=== PATIENT | male | born 1955 | race Caucasian/White ===

== ENCOUNTER 2017-03-02 14:16 | Inpatient (IN) | payer MEDICAID, OTHER ==
--- NOTE | 2017-03-02 16:26 | EDPHY ---
General Narrative: CHIEF COMPLAINT: Weakness, falls HISTORY OF PRESENT ILLNESS: Patient arrives with his significant other at bedside. She complains primarily of weakness and possible urinary tract infection. She says that the patient has been increasingly weak and intermittently confused over the past 4-5 days. Patient has a history of Parkinson's dementia as well as Lewy body dementia, thus he does already have a history of hallucinations and confusion. However she says that this is different for him. He has periods of clarity with some periods of confusion his hallucinations seems to be worsening. He has been so weak that he has difficulty ambulating and has fallen on 4 separate occasions in the past 4 days. She reports that he has struck his head on solid surfaces twice in the past 4 days but denies any loss of consciousness. She describes no facial droop , no slurred speech, and no unilateral weakness. He denies any headache at this time. He says that he is generally sore from his falls but has no specific point pain. They both feel that this may be urinary tract infection as he has had similar scenarios in the past, which were diagnosed ultimately as urinary tract infections. No fever or chills. No abdominal pain. No chest pain. No cough. No lacerations from the falls. They are here at the recommendation of their neurology PA due to all the above. Additionally, the significant other feels that she could no longer help take care of at home because of the multiple falls and she is concerned about him going home due to this. REVIEW OF SYSTEMS: Ten systems reviewed and are negative unless otherwise noted in the HPI PERTINENT MEDICAL HISTORY: Parkinson's, Lewy body dementia PERTINENT MEDICATIONS: Sinemet, Exelon, mirabegron EXAMINATION General Appearance: Alert, no distress Head: normocephalic, atraumatic. No hematoma. No depression. No Irwin sign. No raccoon eyes. Eyes: Pupils equal and round, no conjunctival pallor or injection ENT, Mouth: Mucous membranes moist. Uvula midline. No erythema or edema. Neck: Normal inspection, supple, non-tender. No meningismus. Painless range of motion all planes. No nuchal rigidity. Respiratory: Mild rhonchi. No retractions. No consolidation, wheezing or diminishment. No distress. Cardiovascular: Regular rate and rhythm. No murmur. Pulses intact distally. Gastrointestinal: Abdomen is soft and nontender. No tympany rigidity. Back: Generalized soft tissue tenderness. No midline tenderness or crepitus. Neurological: Alert and oriented x4. Cranial nerves 2-12 grossly intact. Strength is symmetric in all 4 limbs at 4/5. Sensory is intact. There are baseline contractures in all 4 limbs from Parkinson's. Skin: Warm and dry, no rash. No lacerations abrasions or contusions. Extremities: Contractions present. Range of motion reportedly intact for patient. Psychiatric: Normal mood. Flat affect. DIFFERENTIAL DIAGNOSES: Including but not limited to acute delirium, UTI, sepsis, pneumonia, aspiration pneumonia, stroke, weakness, rhabdomyolysis MDM: 4:20 p.m. Increasing weakness over the past few days with worsening incontinence, multiple falls, closed head injury and generalized discomfort. Nonfocal examination. He vital signs stable and he is in no acute distress. Have personally spoken with the patient's Neurology PA, Berenice Nettles. She informed me that in these scenarios with patient with parkinsonian dementia and we body dementia, they are worried about acute infection given the acute confusion. She recommended lab work, CT of the head without contrast, chest x-ray as he is at risk for aspiration pneumonia. We will here to these recommendations and obtain laboratory studies, blood cultures, lactic acid. He does not meet criteria for SIRS at this time and he is in no acute distress. 5:10 p.m. Lactic acid is within normal limits. I have been notified by radiologist Dr. Snider. CT scan of the head is unremarkable for any acute findings. He remains in no acute distress. Laboratory studies also showed leukocytosis, and they are otherwise pending at this time. 7:20 p.m. There was extensive difficulty obtaining urinalysis from the patient. He was unable to go, the 1st straight cath with unsuccessful. The 2nd straight cath was successful and urinalysis pending at this time. He will be admitted following return of the urinalysis. We have begun IV fluid resuscitation further early rhabdo. Renal function is within normal limits. 8:45 p.m. Weakness with early rhabdomyolysis. Very mildly elevated leukocytosis. No evidence of urinary tract infection. No meningismus. No acute distress. No evidence of stroke. I discussed the case with Dr. Gilmore at this time, and he will admit the patient for further care. We have started fluid resuscitation further early rhabdomyolysis. He is not acidotic, there is no protein in his urine, and he has normal renal function. SUPERVISION: Patient was evaluated in conjunction with the supervising physician. Please see their note for details. - Diagnostics Imaging Results: Imaging Impressions Head CT 03/02/17 16:18 Impression: No acute intracranial findings. Findings discussed with Kwan Leach 03/02/2017 at 17:09. Chest X-Ray 03/02/17 16:20 Impression: There is no focal infiltrate. - History Smoking Status: Former smoker - Objective Vital Signs: Initial Vital Signs Temperature (C) 98.2 F 03/02/17 14:41 Heart Rate 68 03/02/17 14:41 Respiratory Rate 18 03/02/17 14:41 Blood Pressure 110/70 03/02/17 14:41 O2 Sat (%) 98 03/02/17 14:41 O2 Delivery Mode Room Air Allergies/Adverse Reactions: No Known Allergies Allergy (Verified 03/02/17 14:44) Home Medications: Medication Instructions Recorded Carbidopa/Levodopa [Carbidopa-Levo 2 each PO TID 03/02/17 25-100 mg Odt] Mirabegron [Myrbetriq] 50 mg PO DAILY 03/02/17 Rivastigmine Tartrate 3 mg PO BID 03/02/17 [Rivastigmine] Laboratory Results: Laboratory Results 03/02/17 16:50 03/02/17 16:50 03/02/17 03/02/17 03/02/17 19:08 16:50 16:50 WBC RBC Hgb Hct MCV MCH MCHC RDW Plt Count MPV Neut % (Auto) Lymph % (Auto) [place] % (Auto) Eos % (Auto) Baso % (Auto) Nucleat RBC Rel Count Absolute Neuts (auto) Absolute Lymphs (auto) Absolute Monos (auto) Absolute Eos (auto) Absolute Basos (auto) Absolute Nucleated RBC Immature Gran % Immature Gran # PT 13.9 SEC SEC (12.0-15.0) INR 1.08 (0.83-1.16) APTT 26.5 SEC SEC (23.0-38.0) VBG Lactic Acid Sodium 139 mEq/L mEq/L (134-144) Potassium 3.7 mEq/L mEq/L (3.5-5.2) Chloride 102 mEq/L mEq/L (97-110) Carbon Dioxide 28 mEq/l mEq/l (22-31) Anion Gap 9 mEq/L mEq/L (8-16) BUN 47 mg/dL H mg/dL (7-23) Creatinine 1.3 mg/dL mg/dL (0.7-1.3) Estimated GFR 56 Glucose 88 mg/dL mg/dL (70-100) Calcium 9.4 mg/dL mg/dL (8.5-10.4) Magnesium 2.0 mg/dL mg/dL (1.6-2.3) Total Bilirubin 1.5 mg/dL H mg/dL (0.1-1.4) Conjugated Bilirubin 0.4 mg/dL mg/dL (0.0-0.5) Unconjugated Bilirubin 1.1 mg/dL mg/dL (0.0-1.1) AST 282 IU/L H IU/L (17-59) ALT 43 IU/L IU/L (21-72) Alkaline Phosphatase 54 IU/L IU/L (38-126) Creatine Kinase 6228 IU/L H IU/L (0-224) CK-MB (CK-2) Fraction 18.50 ng/mL H ng/mL (0-4.55) CK-MB (CK-2) % 0.3 % % (0.0-4.0) Creatine Kinase Interp NEGATIVE (NEGATIVE) Troponin I < 0.012 ng/mL ng/mL (0-0.034) Total Protein 6.9 g/dL g/dL (6.3-8.2) Albumin 4.0 g/dL g/dL (3.5-5.0) Lipase 91.0 IU/L IU/L (23-300) Urine Color YELLOW Urine Appearance CLEAR Urine pH 5.0 (5.0-7.5) Ur Specific [place] 1.027 (1.002-1.030) Urine Protein NEGATIVE (NEGATIVE) Urine Ketones TRACE H (NEGATIVE) Urine Blood 1+ H (NEGATIVE) Urine Nitrate NEGATIVE (NEGATIVE) Urine Bilirubin NEGATIVE (NEGATIVE) Urine Urobilinogen NEGATIVE EU EU (0.2-1.0) Ur Leukocyte Esterase NEGATIVE (NEGATIVE) Urine RBC 1-3 /hpf /hpf (0-3) Urine WBC 1-3 /hpf /hpf (0-3) Ur Epithelial Cells TRACE /lpf /lpf (NONE-1+) Urine Mucus 1+ /lpf /lpf (NONE-1+) Ur Culture Indicated? NOT INDICATED (NI) Urine Glucose NEGATIVE (NEGATIVE) 03/02/17 03/02/17 16:50 16:50 WBC 10.38 10^3/uL H 10^3/uL (3.80-9.50) RBC 4.90 10^6/uL 10^6/uL (4.40-6.38) Hgb 15.0 g/dL g/dL (13.7-17.5) Hct 44.2 % % (40.0-51.0) MCV 90.2 fL fL (81.5-99.8) MCH 30.6 pg pg (27.9-34.1) MCHC 33.9 g/dL g/dL (32.4-36.7) RDW 12.6 % % (11.5-15.2) Plt Count 200 10^3/uL 10^3/uL (150-400) MPV 10.1 fL fL (8.7-11.7) Neut % (Auto) 79.5 % H % (39.3-74.2) Lymph % (Auto) 9.0 % L % (15.0-45.0) [place] % (Auto) 9.7 % % (4.5-13.0) Eos % (Auto) 0.6 % % (0.6-7.6) Baso % (Auto) 0.5 % % (0.3-1.7) Nucleat RBC Rel Count 0.0 % % (0.0-0.2) Absolute Neuts (auto) 8.26 10^3/uL H 10^3/uL (1.70-6.50) Absolute Lymphs (auto) 0.93 10^3/uL L 10^3/uL (1.00-3.00) Absolute Monos (auto) 1.01 10^3/uL H 10^3/uL (0.30-0.80) Absolute Eos (auto) 0.06 10^3/uL 10^3/uL (0.03-0.40) Absolute Basos (auto) 0.05 10^3/uL 10^3/uL (0.02-0.10) Absolute Nucleated RBC 0.00 10^3/uL 10^3/uL (0-0.01) Immature Gran % 0.7 % % (0.0-1.1) Immature Gran # 0.07 10^3/uL 10^3/uL (0.00-0.10) PT INR APTT VBG Lactic Acid 1.0 mmol/L mmol/L (0.7-2.1) Sodium Potassium Chloride Carbon Dioxide Anion Gap BUN Creatinine Estimated GFR Glucose Calcium Magnesium Total Bilirubin Conjugated Bilirubin Unconjugated Bilirubin AST ALT Alkaline Phosphatase Creatine Kinase CK-MB (CK-2) Fraction CK-MB (CK-2) % Creatine Kinase Interp Troponin I Total Protein Albumin Lipase Urine Color Urine Appearance Urine pH Ur Specific [place] Urine Protein Urine Ketones Urine Blood Urine Nitrate Urine Bilirubin Urine Urobilinogen Ur Leukocyte Esterase Urine RBC Urine WBC Ur Epithelial Cells Urine Mucus Ur Culture Indicated? Urine Glucose Medications Given: Discontinued Medications Sodium Chloride (Ns) 1,000 mls @ 0 mls/hr IV ONCE ONE PRN Reason: Wide Open Stop: 03/02/17 17:56 Last Admin: 03/02/17 18:00 Dose: 1,000 mls Sodium Chloride (Ns) 1,000 mls @ 0 mls/hr IV ONCE ONE PRN Reason: Wide Open Stop: 03/02/17 19:28 Last Admin: 03/02/17 19:54 Dose: 1,000 mls Departure - Departure Disposition: [facility] Inpatient Acute Clinical Impression: Weakness, Parkinson disease Rhabdomyolysis Qualifiers: Rhabdomyolysis type: non-traumatic Qualified Code(s): M62.82 - Rhabdomyolysis Dementia without behavioral disturbance Qualifiers: Dementia type: Parkinson's disease Qualified Code(s): G20 - Parkinson's disease ; F02.80 - Dementia in other diseases classified elsewhere without behavioral disturbance Condition: Good
[2017-03-02 17:02] LABS: % IMMATURE GRANULYOCYTES 0.7 % (0.0-1.1); ABSOLUTE IMMATURE GRANULOCYTES 0.07 10^3/uL (0.00-0.10); ADD DIFF? NO; ADD MORPH? NO; ADD SCAN? NO; ATYPICAL LYMPHOCYTE FLAG 0 (0-99); FRAGMENT RBC FLAG 0 (0-99); HEMATOCRIT 44.2 % (40.0-51.0); LEFT SHIFT FLG 0 (0-99); LIPEMIA HEMOLYSIS FLAG 90 (0-99); MEAN CELL HEMOGLOBIN 30.6 pg (27.9-34.1); MEAN CELL HEMOGLOBIN CONCENTR. 33.9 g/dL (32.4-36.7); MEAN CELL VOLUME 90.2 fL (81.5-99.8); MEAN PLATELET VOLUME 10.1 fL (8.7-11.7); PLATELET CLUMPS FLAG 10 (0-99); PLATELET COUNT 200 10^3/uL (150-400); RED CELL DISTRIBUTION WIDTH 12.6 % (11.5-15.2)
[2017-03-02 17:14] LABS: APTT 26.5 SEC (23.0-38.0); INR 1.08 (0.83-1.16); PROTIME(PATIENT) 13.9 SEC (12.0-15.0)
[2017-03-02 17:34] LABS: ALANINE AMINOTRANSFERASE 43 IU/L (21-72); ALKALINE PHOSPHATASE 54 IU/L (38-126); ANION GAP 9 mEq/L (8-16); ASPARTATE AMINOTRANSFERASE 282 IU/L (17-59); BILIRUBIN,TOTAL 1.5 mg/dL (0.1-1.4); BILIRUBIN-CONJUGATED 0.4 mg/dL (0.0-0.5); BILIRUBIN-UNCONJUGATED 1.1 mg/dL (0.0-1.1); CALCIUM 9.4 mg/dL (8.5-10.4); CARBON DIOXIDE 28 mEq/l (22-31); CHLORIDE 102 mEq/L (97-110); CREATININE 1.3 mg/dL (0.7-1.3); GLOMERULAR FILTRATION RATE 56; GLUCOSE 88 mg/dL (70-100); POTASSIUM 3.7 mEq/L (3.5-5.2); SODIUM 139 mEq/L (134-144); TOTAL PROTEIN 6.9 g/dL (6.3-8.2)
[2017-03-02 17:44] LABS: TROPONIN I < 0.012 ng/mL (0-0.034)
[2017-03-02 17:53] LABS: CK-MB INTERPRETATION NEGATIVE (NEGATIVE)
[2017-03-02] MEDS ORDERED: NS 1,000 ML IV ONE ×2 (17:55→19:27)
[2017-03-02 19:17] LABS: COLOR YELLOW; LEUKOCYTE ESTERASE,URINE NEGATIVE (NEGATIVE); NITRITE,URINE NEGATIVE (NEGATIVE)
[2017-03-02 19:35] LABS: MUCUS 1+ /lpf (NONE-1+)
[2017-03-02] MEDS ORDERED: CARBIDOPA/LEVODOPA 25 MG/100 MG TAB PO SCH (22:00)
[2017-03-02] MEDS ORDERED: ACETAMINOPHEN 325 MG TAB PO PRN (22:22)
[2017-03-02] MEDS ORDERED: ONDANSETRON 4 MG/2 ML VIAL IVP PRN (22:22)
[2017-03-02] MEDS ORDERED: NS 1,000 ML IV SCH (22:30)
--- NOTE | 2017-03-03 03:37 | GHP ---
[f rep st] HISTORY AND PHYSICAL DATE OF ADMISSION: 03/02/2017 CHIEF COMPLAINT: Weakness and confusion. HISTORY: The patient is a 61-year-old male, brought into the hospital by his fiancee due to weaknes s and confusion for the last 5 days. This is worse than his baseline. He has fallen 4 times recent ly. He struck his head and did have some loss of consciousness. His fiancee can no longer care for him. The patient is unable to provide any further history at this time, as he is quite confused. Clyde has gone home. PAST MEDICAL HISTORY: 1. Parkinson disease. 2. Lewy body dementia. MEDICATIONS: Please see computer record for full detailed list. ALLERGIES: No known drug allergies. SOCIAL HISTORY: Former smoker. He tells me he drinks an occasional [place]. He tells me he has a fiancee, whom he lives with, and he is calling out for her. REVIEW OF SYSTEMS: Complete review of systems is unobtainable due to patient's confusion and unreli able nature of any response that he gives. FAMILY HISTORY: Also, unobtainable for similar reasons. PHYSICAL EXAMINATION: GENERAL: Well-developed, well-nourished male, in no acute distress. VITAL S IGNS: Temperature is 36.6, pulse 71, blood pressure 124/73, saturating 96% on room air. EYES: Nor mal conjunctivae. Pupils react to light. ENT: Normal ears and nose. Hearing intact. Normal lips and teeth. Oropharynx moist. NECK: Trachea midline. No thyromegaly. CHEST: Normal respiratory effort. LUNGS: Clear to auscultation bilaterally. CARDIOVASCULAR: Regular rate and rhythm. No murmur. No lower extremity edema. ABDOMEN: Soft, nontender. No hepatosplenomegaly. SKIN: Warm, dry, intact, without rash. MUSCULOSKELETAL: No cyanosis or clubbing. Strength 5/5, upper and low er extremities on examination. NEURO: Cranial nerves intact. Normal sensation to light touch. [facility] ASSESSMENT: Awake and alert, very pleasant, cooperative, following commands. Has very poor mem ory, judgment, and insight, however. He is disoriented. Does not know he is in the hospital, altho ugh he tells me he is at a care home. LABORATORY DATA: White count 10.38, hematocrit 44.2, platelets 200. Sodium 139, potassium 3.7, chl oride 102, bicarb 28, BUN 47, creatinine 1.3, glucose 88. Total bili 1.5, AST 282. Urinalysis is n egative. CPK is 6228, troponin is negative. INR is 1. Lipase 91. Lactate is 1. Head CT is negative. Chest x-ray is negative. MEDICAL RECORDS REVIEW: Old medical records are minimal. There are some physical and occupational therapy notes. There is a previous MRI of the brain that was negative. ASSESSMENT AND PLAN: 1. Metabolic encephalopathy. Source of his worsening status is not evident. He could possibly hav e a concussion with his recent head trauma and associated loss of consciousness. Head CT is negativ e. He may also be a little dehydrated, as his creatinine is mildly elevated. We will hydrate with IV fluids and recheck in the morning. We will order PT/OT, and I anticipate he will need skilled [facility] facility rehabilitation, as his significant other has stated she can no longer care for him in this state in the home. 2. Lewy body dementia. This appears to be advanced and is unfortunate at his relatively young age. 3. Parkinson disease. We will continue his Sinemet. CODE STATUS: Full. ADMISSION STATUS: We will admit to inpatient. I anticipate greater than 3 midnights, given the adv anced weakness, with which he presents. DVT PROPHYLAXIS: He is high risk. I will prescribe subcu Lovenox. /[id number]/MODL
[2017-03-03 05:08] LABS: % IMMATURE GRANULYOCYTES 0.5 % (0.0-1.1); ABSOLUTE IMMATURE GRANULOCYTES 0.04 10^3/uL (0.00-0.10); ADD DIFF? NO; ADD MORPH? NO; ADD SCAN? NO; ATYPICAL LYMPHOCYTE FLAG 0 (0-99); FRAGMENT RBC FLAG 0 (0-99); HEMATOCRIT 36.7 % (40.0-51.0); HEMOGLOBIN 12.3 g/dL (13.7-17.5); LEFT SHIFT FLG 0 (0-99); LIPEMIA HEMOLYSIS FLAG 80 (0-99); MEAN CELL HEMOGLOBIN 30.8 pg (27.9-34.1); MEAN CELL HEMOGLOBIN CONCENTR. 33.5 g/dL (32.4-36.7); MEAN PLATELET VOLUME 10.2 fL (8.7-11.7); PLATELET CLUMPS FLAG 0 (0-99); PLATELET COUNT 172 10^3/uL (150-400); RED BLOOD CELL COUNT 3.99 10^6/uL (4.40-6.38); RED CELL DISTRIBUTION WIDTH 12.7 % (11.5-15.2)
[2017-03-03 05:14] LABS: ALANINE AMINOTRANSFERASE 47 IU/L (21-72); ALBUMIN 2.9 g/dL (3.5-5.0); ALKALINE PHOSPHATASE 44 IU/L (38-126); ANION GAP 8 mEq/L (8-16); ASPARTATE AMINOTRANSFERASE 189 IU/L (17-59); BILIRUBIN-CONJUGATED 0.3 mg/dL (0.0-0.5); BILIRUBIN-UNCONJUGATED 0.7 mg/dL (0.0-1.1); CALCIUM 8.3 mg/dL (8.5-10.4); CARBON DIOXIDE 23 mEq/l (22-31); CHLORIDE 110 mEq/L (97-110); CREATININE 0.9 mg/dL (0.7-1.3); GLOMERULAR FILTRATION RATE > 60; GLUCOSE 97 mg/dL (70-100); POTASSIUM 3.7 mEq/L (3.5-5.2); SODIUM 141 mEq/L (134-144); TOTAL PROTEIN 5.5 g/dL (6.3-8.2)
[2017-03-03 05:56] LABS: CK-MB INTERPRETATION NEGATIVE (NEGATIVE)
[2017-03-03] MEDS: CARBIDOPA/LEVODOPA 25 MG/100 MG TAB PO SCH ×3 (08:00→21:27)
[2017-03-03] MEDS: ENOXAPARIN 40 MG/0.4 ML SYR SC SCH (08:00)
[2017-03-03] MEDS: RIVASTIGMINE TARTRATE 1.5 MG CAP PO SCH ×2 (08:01→21:27)
[2017-03-03] MEDS ORDERED: Mirabegron [Myrbetriq] 50 MG PO SCH (09:00)
--- NOTE | 2017-03-03 16:12 | HOSPPROG ---
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 # Parkinsons - strength is improved this am - - PT/OT - cont home meds # proph - lovenox # diet - regular # dispo - > 2MN as needs therapy evals necessary for safe disposition I have discussed the case with CM - we will coordinate with therapies - patient may need a short rehab stay Subjective: feeling better Objective: Vital Signs Temp Pulse Resp BP Pulse Ox 37.0 C 75 18 150/88 H 94 03/03/17 16:04 03/03/17 16:04 03/03/17 16:04 03/03/17 16:04 03/03/17 16:04 Laboratory Results 03/03/17 04:33 03/03/17 04:33 03/02/17 03/03/17 03/04/17 05:59 05:59 05:59 Intake Total 2400 1480 Output Total 20 Balance 2380 1480 PT 13.9 SEC (12.0-15.0) 03/02/17 16:50 INR 1.08 (0.83-1.16) 03/02/17 16:50 - Physical Exam Constitutional: appears nourished Eyes: anicteric sclera Ears, Nose, Mouth, Throat: moist mucous membranes Cardiovascular: regular rate and rhythym Respiratory: no respiratory distress, no rales or rhonchi Gastrointestinal: normoactive bowel sounds, soft, non-tender abdomen Genitourinary: no bladder fullness Skin: warm, normal color Musculoskeletal: No asymmetric calves Neurologic: No AAOx3 Psychiatric: interacting appropriately, not anxious Lymph, Heme, Immunologic: no cervical LAD ICD10 Worksheet Patient Problems: Problems Problem Status Onset Dementia without behavioral disturbance Acute Parkinson disease Acute Rhabdomyolysis Acute Weakness Acute
[2017-03-03] MEDS: Mirabegron [Myrbetriq] 50 MG PO SCH (23:04)
[2017-03-04 05:58] LABS: ANION GAP 7 mEq/L (8-16); CALCIUM 8.6 mg/dL (8.5-10.4); CARBON DIOXIDE 25 mEq/l (22-31); CHLORIDE 110 mEq/L (97-110); GLOMERULAR FILTRATION RATE > 60; GLUCOSE 91 mg/dL (70-100); POTASSIUM 4.2 mEq/L (3.5-5.2); SODIUM 142 mEq/L (134-144)
[2017-03-04] MEDS: CARBIDOPA/LEVODOPA 25 MG/100 MG TAB PO SCH ×5 (09:52→20:51)
[2017-03-04] MEDS: RIVASTIGMINE TARTRATE 1.5 MG CAP PO SCH ×2 (09:53→20:51)
[2017-03-04] MEDS: ENOXAPARIN 40 MG/0.4 ML SYR SC SCH (09:53)
[2017-03-04] MEDS: Mirabegron [Myrbetriq] 50 MG PO SCH (09:54)
[2017-03-04] MEDS ORDERED: CARBIDOPA/LEVODOPA 25 MG/100 MG TAB PO SCH (10:00)
--- NOTE | 2017-03-04 11:11 | HOSPPROG ---
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 # Parkinsons - strength is improved this am - - PT/OT - cont home meds- changing dosing to home dosing today # proph - lovenox # diet - regular # dispo - > 2MN as needs therapy evals necessary for safe disposition I have discussed the case with RN - working on inpatient rehab placement Subjective: denies pain Objective: Vital Signs Temp Pulse Resp BP Pulse Ox 36.7 C 70 16 150/80 H 93 03/04/17 08:28 03/04/17 08:28 03/04/17 08:28 03/04/17 08:28 03/04/17 08:28 Laboratory Results 03/03/17 04:33 03/04/17 05:14 03/03/17 03/04/17 03/05/17 05:59 05:59 05:59 Intake Total 2400 2280 350 Output Total 20 600 Balance 2380 1680 350 PT 13.9 SEC (12.0-15.0) 03/02/17 16:50 INR 1.08 (0.83-1.16) 03/02/17 16:50 - Physical Exam Constitutional: appears nourished Eyes: anicteric sclera Ears, Nose, Mouth, Throat: moist mucous membranes Cardiovascular: regular rate and rhythym Respiratory: no respiratory distress, no rales or rhonchi Gastrointestinal: normoactive bowel sounds, soft, non-tender abdomen Genitourinary: no bladder fullness Skin: warm, normal color Musculoskeletal: No asymmetric calves Neurologic: AAOx3 Psychiatric: interacting appropriately Lymph, Heme, Immunologic: no cervical LAD ICD10 Worksheet Patient Problems: Problems Problem Status Onset Dementia without behavioral disturbance Acute Parkinson disease Acute Rhabdomyolysis Acute Weakness Acute
[2017-03-04] MEDS ORDERED: MAGNESIUM HYDROXIDE 30 ML UDCUP PO PRN (11:22)
[2017-03-04] MEDS ORDERED: POLYETHYLENE GLYCOL 3350 17 GM PKT PO PRN (11:22)
[2017-03-04] MEDS ORDERED: LACTULOSE 20 GM/30 ML UDCUP PO PRN (11:22)
[2017-03-04] MEDS ORDERED: BISACODYL 10 MG SUPP PR PRN (11:22)
[2017-03-04] MEDS: SENNOSIDES/DOCUSATE SODIUM TAB PO SCH ×2 (12:47→20:51)
[2017-03-05] MEDS: CARBIDOPA/LEVODOPA 25 MG/100 MG TAB PO SCH ×4 (00:09→12:43)
[2017-03-05 04:56] VITALS: O2SAT 93
[2017-03-05] MEDS: SENNOSIDES/DOCUSATE SODIUM TAB PO SCH (08:38)
[2017-03-05 08:51] VITALS: BP 149/100; PULSE 81; RESP 20; TEMP 98.1
[2017-03-05] MEDS: RIVASTIGMINE TARTRATE 1.5 MG CAP PO SCH (08:58)
[2017-03-05] MEDS: Mirabegron [Myrbetriq] 50 MG PO SCH (09:00)
[2017-03-05] MEDS: ENOXAPARIN 40 MG/0.4 ML SYR SC SCH (09:03)
[2017-03-05] MEDS ORDERED: PNEUMOCOCCAL 0.5ML VACCINE VIAL IM ONE (12:54)
--- NOTE | 2017-03-05 13:07 | PDIAF ---
- Diagnosis Diagnosis: gait instability, confusion, dehydration, rhabdomyolysis, dementia, maribel Code Status: Full Code - Medication Management Discharge Medications: Medications to Continue on Transfer Carbidopa/Levodopa [Carbidopa-Levodopa 25-100 Tab] 2 each PO TID 03/02/17 [Last Taken Unknown] Mirabegron [Myrbetriq] 50 mg PO DAILY 03/02/17 [Last Taken Unknown] Rivastigmine Tartrate [Rivastigmine] 3 mg PO BID 03/02/17 [Last Taken Unknown] Enoxaparin [Lovenox 40 MG (*)] 40 mg SC DAILY #0 syr 03/05/17 [Last Taken Unknown] Polyethylene Glycol 3350 [Miralax 17 gm (*)] 17 gm PO DAILY PRN #0 pkt 03/05/17 [Last Taken Unknown] Discharge Medications: Refer to the Discharge Home Medication list for PRN reason. - Orders Services needed: Registered Nurse, Certified Hog Dropper, Master Physical Optics Teacher , Physical Therapy, Occupational Therapy Diet Recommendation: no restrictions on diet Diet Texture: Regular Texture Diet - Follow Up Care Current Providers and Referrals: NOT,SURE [Other] - As per Instructions
--- NOTE | 2017-03-05 13:13 | PDDCSUM ---
Discharge Summary Discharge Summary: DISCHARGE DIAGNOSES: -ACUTE METABOLIC ENCEPHALOPATHY, MULTIFACTORIAL -ACUTE KIDNEY INJURY OF HEMODYNAMIC ORIGIN -ACUTE RHABDOMYOLYSIS -FALL AT HOME -GAIT INSTABILITY -PARKINSON'S DISEASE -DEMENTIA, WITH PRIOR DIAGNOSIS OF LEWY BODY DISEASE PROCEDURES: CT SCAN OF HEAD HOSPITAL COURSE SUMMARY: This patient with chronic Parkinson's disease and chronic dementia and known gait instability presented to the hospital with worsening confusion and weakness with a few falls at home. He was found to have no evidence of acute neurologic injury but he had evidence of acute encephalopathy. He was dehydrated with acute kidney injury and rhabdomyolysis with CPK greater than 6000. There is no evidence of any cardiac issues or pulmonary issues. There were no fevers or other signs of infection and no signs of skeletal injury. The patient was treated with hydration, therapies, fall risk precautions, dietary supplements. He recovered nicely with return of renal function back to his baseline, improvement in the CPK, improvement in his mentation back to baseline. He is medically stable for discharge from hospital. However she does not have good enough balance or awareness to be able to be safe at home. He is therefore being transferred to inpatient rehabilitation facility for further care and rehabilitation at this time. MEDICATION CHANGES: None FOLLOW-UP PLAN: He will follow up with the facility physicians at the inpatient rehabilitation facility as he arrives there today. Greater than 35 minutes bedside and care coordination time today
== END 2017-03-05 15:02 | DRG 71 ==
LOC: F1N 22:19
PROVIDERS: ADMIT Internal Medicine; ATTEND Internal Medicine
DX: G93.41 Metabolic encephalopathy (principal); E86.0 Dehydration; N17.9 Acute kidney failure, unspecified; M62.82 Rhabdomyolysis; Z91.81 History of falling; G31.83 Neurocognitive disorder with Lewy bodies; F02.80 Dementia in other diseases classified elsewhere, unspecified severity, without behavioral disturbance, psychotic disturbance, mood disturbance, and anxiety; Z23 Encounter for immunization
CPT/HCPCS: 92523-GN; 97110-GP; 97116-GP; 97162-GP; 97166-GO; 97530-GO; 97530-GP; 97532-GO; 97535-GO; G0009; G9168-GN-CL; G9169-GN-CL; J1650

== ENCOUNTER 2017-03-05 13:28 | Inpatient (IN) | payer MEDICAID ==
[2017-03-05] MEDS ORDERED: POLYETHYLENE GLYCOL 3350 17 GM PKT PO PRN (15:46)
[2017-03-05] MEDS ORDERED: BISACODYL 10 MG SUPP PR PRN (15:47)
[2017-03-05] MEDS ORDERED: CARBIDOPA/LEVODOPA 25 MG/100 MG TAB PO SCH ×2 (16:00→18:00)
--- NOTE | 2017-03-05 16:05 | PDOREHIP ---
Admission IRF-[facility] - Admission - 3 Day Assessment Period Admission Date/Day 1: 03/05/17 Day 2: 03/06/17 Day 3: 03/07/17 - Active Diagnoses Comorbidities and Co-existing Conditions at Admission: 82558. None of the Above - Skin Conditions Unhealed Pressure Ulcer (1 or more/Stage 1 or >)-Admission: 0. No
--- NOTE | 2017-03-05 16:50 | GHP ---
[f rep st] HISTORY AND PHYSICAL POST ADMISSION PHYSICIAN EVALUATION AND REHABILITATION TREATMENT PLAN. DATE OF ADMISSION: 03/05/2017 REFERRING FACILITY: [facility]. REFERRING PHYSICIAN: Serena Liu MD IMPAIRMENT GROUP: [id number]. DATE OF ONSET: 03/02/2017. CONSULTING PHYSICIANS: None. REHABILITATION DIAGNOSIS: Debility status post multiple falls and functional decline. ETIOLOGIC DIAGNOSIS: Debility (noncardiac, nonpulmonary). HISTORY OF PRESENT ILLNESS: The patient is a 61-year-old man with history of Parkinson disease and Lewy body dementia who has had a decline in function including weakness, confusion and falls over several weeks. He had declined to the point where his fiancee was unable to care for him. Evaluation in the hospital revealed an elevated creatine kinase consistent with rhabdomyolysis. He had a head CT, which ruled out any intracranial pathology. He was hydrated and had improvement in his renal function and decrease in his CPK. He was evaluated by physical and occupational therapy, and then discharged to inpatient rehabilitation for continued therapies. He currently is without any acute complaints. He reports when he falls it is because he tips over backwards, even though he is using a walker. He denies lightheadedness when he stands or any neurologic symptoms prior to falling. STUDIES AND LABS IN THE HOSPITAL: CBC on admission showed a mildly elevated white blood cell count. After hydration, he developed some anemia with a hemoglobin of 12.3 and a hematocrit of 36.7. His white blood cell count normalized. Coagulation studies were within normal limits. Serum chemistry revealed some dehydration with a BUN of 47 and a creatinine of 1.3 on admission. This had normalized to a BUN of 22 and a creatinine of 1.0 on the day before discharge, 03/04/2017. Urinalysis was positive for trace ketones and 1+ blood, otherwise was within normal limits. PRECAUTIONS: He is a fall risk. ACTIVE COMORBIDITIES: There are no active tier 1, tier 2, or tier 3 comorbidities. PAST MEDICAL HISTORY: 1. Parkinson disease. 2. Lewy body dementia. PAST SURGICAL HISTORY: He does not have history of prior surgeries. MEDICATIONS PRIOR TO ADMISSION: I do not have a complete list I believe he was taking carbidopa/levodopa 1 tablet every 4 hours around the clock, mirabegron 50 mg p.o. daily and rivastigmine 3 mg p.o. twice daily. ADMISSION MEDICATIONS: 1. Carbidopa/levodopa 2 tablets p.o. twice daily. 2. Enoxaparin 40 mg subcutaneous daily. 3. Mirabegron 50 mg p.o. daily. 4. Rivastigmine 3 mg p.o. twice daily. 5. Polyethylene glycol 17 g p.o. daily p.r.n. ALLERGIES: There are no known drug allergies. FAMILY HISTORY: Noncontributory. PSYCHOSOCIAL HISTORY: He is . He moved to [place] with his fiancee, unclear how long ago. He has 6 children living with his ex- in [place]. He has occasional alcohol. He is a former tobacco smoker. 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 REVIEW OF SYSTEMS: He reports that he had constipation but eventually was able to move his bowels yesterday, having been treated with lactulose and other laxatives. He denies pain, headache, vision changes, fevers, chills, cough, dyspnea, chest pain, palpitations, nausea or vomiting, dysuria or urinary frequency. He denies joint pain or joint swelling. He denies skin rash, skin breakdown, and otherwise a 10-point review of systems is negative. PHYSICAL EXAM: VITAL SIGNS: Not yet available in the chart. This morning at [facility] his blood pressure was 149/100, his heart rate was 81, his respiratory rate was 20, his oxygen saturation was 93% on room air, his temperature was 36.7 degrees centigrade. His weight is 90.7 kg for a body mass index of 28.7. GENERAL: This is a well-nourished, well-developed, overweight man lying in bed, dressed in street clothes, cooperative and in no acute distress. HEENT: Extraocular movements are intact. Pupils are equal, round, and reactive to light. Mucous membranes are moist. His airway is not crowded, Mallampati class 1. Dentition is in fair condition. There is no posterior oropharyngeal mucus. There is no oropharyngeal erythema or exudate. NECK: Supple. HEART: There is a regular rate and rhythm with no murmurs, rubs, or gallops. LUNGS: Clear to auscultation bilaterally. ABDOMEN: Soft, nontender , nondistended with normoactive bowel sounds and no hepatosplenomegaly. EXTREMITIES: There is no cyanosis, clubbing, or edema. Radial and dorsalis pedis pulses are 2+ bilaterally. NEUROLOGIC: He is alert and oriented to his general situation. He is disoriented to the month and date of the month, and to his specific location. Cranial nerves 2-12 are grossly intact. There is no focal weakness. Sensation is intact to light touch. Deep tendon reflexes are 2 + bilaterally at the biceps, patellae, and Achilles tendons. He has full faces with a normal blink rate. He has cogwheel rigidity bilateral upper extremities versus gegenhalten type rigidity. He requires the assistance of 2 to rise to seated from supine. He is mildly retropulsive while seated, and requires minimal assistance to maintain seated balance. He has bradykinesia and possibly a motor planning deficit. IMPRESSION: The patient is a 61-year-old man with Parkinson disease and Lewy body dementia, who has had a decline in function over approximately a month with numerous falls until eventually he was too debilitated for his fiancee to take care of him. He was brought to the hospital where he was found to have rhabdomyolysis. This resolved with hydration. Head CT was unrevealing. His Sinemet dosing was changed from 1 tablet p.o. every 4 hours to 2 tablets p.o. three times daily, giving him the same amount of medication but on a less frequent basis. He was evaluated by physical and occupational therapies and found to be an appropriate candidate to continue these therapies in the inpatient rehabilitation setting. He had disorientation and has been referred for speech and language pathology also. There is no indication that he suffered head trauma with his falls. His goal is to return home with his fiancee. For a safe discharge, he will need to achieve independence with eating, grooming, and bed mobility, modified independence for toileting, bathing, transfers, and ambulation with the least restrictive device. It is anticipated he will continue to require assistance for dressing, household management, shopping, and meal preparation. He will have therapy with physical therapy, occupational therapy, and speech and language pathology on a modified schedule for 60-90 minutes per day for each discipline on 5-7 days a week. His expected duration of stay is 10-14 days. It is anticipated that upon discharge he will continue to benefit from home health services, including nursing, speech and language pathology, a nurse's aide, social work, occupational therapy and physical therapy. ASSESSMENT AND PLAN: 1. Debility following functional decline and falls. Physical therapy and occupational therapy to optimize mobility and activities of daily living. 2. Parkinson disease. He is treated with Sinemet. His functional status will be monitored and medication adjustments will be considered in the setting. With Lewy body dementia, it is not always responsive to dopaminergic medication. 3. Lewy body dementia. Continue rivastigmine. Assessment and treatment per Speech and Language Pathology. 4. Constipation. He will be on a bowel program with senna and polyethylene glycol scheduled, and bisacodyl suppository will be available on an as-needed basis. 5. Possible history of overactive bladder versus urinary incontinence. Continue mirabegron. We will bladder scan p.r.n. to rule out urinary retention. 6. Unclear etiology of multiple falls, though progressive Lewy body dementia with retropulsion may well explain it. We will check orthostatic vital signs. 7. Prophylaxis. He has been prescribed enoxaparin 40 mg subcutaneous daily for deep venous thrombosis prophylaxis, and this will be continued until his mobility improves. There is no indication for gastrointestinal prophylaxis, as he does not appear to be an elevated risk for gastric ulcers. /[id number]/MODL MTDD
[2017-03-05] MEDS: CARBIDOPA/LEVODOPA 25 MG/100 MG TAB PO SCH ×2 (16:59→20:14)
[2017-03-05] MEDS: SENNOSIDES 1 TAB PO SCH (20:14)
[2017-03-05] MEDS: RIVASTIGMINE TARTRATE 1.5 MG CAP PO SCH (21:27)
[2017-03-06] MEDS: CARBIDOPA/LEVODOPA 25 MG/100 MG TAB PO SCH ×6 (00:11→21:20)
[2017-03-06] MEDS: ENOXAPARIN 40 MG/0.4 ML SYR SC SCH (08:28)
[2017-03-06] MEDS: RIVASTIGMINE TARTRATE 1.5 MG CAP PO SCH ×2 (08:32→21:20)
[2017-03-06] MEDS: SENNOSIDES 1 TAB PO SCH ×2 (08:32→21:20)
[2017-03-06] MEDS: POLYETHYLENE GLYCOL 3350 17 GM PKT PO SCH (08:32)
[2017-03-06] MEDS: NON-FORMULARY NEW DRUG (Mirabegron [Myrbetriq] 50 MG) PO SCH (08:38)
[2017-03-06] MEDS ORDERED: MIRABEGRON PO SCH (09:00)
[2017-03-06] MEDS ORDERED: NON-FORMULARY NEW DRUG (Mirabegron [Myrbetriq] 50 MG) PO SCH (09:00)
--- NOTE | 2017-03-06 10:59 | SOAPPROG ---
SOAP Progress Note Assessment/Plan: ASSESSMENT AND PLAN: The patient is a 61-year-old man with Parkinson disease and Lewy body dementia, who has had a decline in function over approximately a month with numerous falls until eventually he was too debilitated for his fiancee to take care of him. He was brought to the hospital where he was found to have rhabdomyolysis, resolved with hydration, now on IPR for impairments in mobility and self care, and cognition. 03/06/2017: Pt had increased PVR of approx 400 cc this AM, most likely related to BPH. He has incontinence approx 2-3 times per week. Trial of doxazosin 1 mg po QHS with close monitoring of possible orthostatic hypotension. Will need additional follow up with PCP on the issue after discharge. Otherwise participating well in therapies. All medical issues are new to this provider. 1. Debility following functional decline and falls. Physical therapy and occupational therapy to optimize mobility and activities of daily living. 2. Parkinson disease. He is treated with Sinemet. His functional status will be monitored and medication adjustments will be considered in the setting. With Lewy body dementia, it is not always responsive to dopaminergic medication. 3. Lewy body dementia. Continue rivastigmine. Assessment and treatment per Speech and Language Pathology. 4. Constipation. He will be on a bowel program with senna and polyethylene glycol scheduled, and bisacodyl suppository will be available on an as-needed basis. 5. Possible history of overactive bladder versus urinary incontinence. Continue mirabegron. We will bladder scan p.r.n. to rule out urinary retention. 6. Unclear etiology of multiple falls, though progressive Lewy body dementia with retropulsion may well explain it. We will check orthostatic vital signs. 7. Prophylaxis. He has been prescribed enoxaparin 40 mg subcutaneous daily for deep venous thrombosis prophylaxis, and this will be continued until his mobility improves. There is no indication for gastrointestinal prophylaxis, as he does not appear to be an elevated risk for gastric ulcers. 8. Urinary retention: (new problem 03/09): increased PVR of approx 400 cc 03/09, most likely related to BPH. He has had incontinence approx 2-3 times per week. Trial of doxazosin 1 mg po QHS with close monitoring of possible orthostatic hypotension. Will need additional follow up with PCP on the issue after discharge. 9. Dispo: ELOS 10-14 days, home with fiancee. For a safe discharge, he will need to achieve independence with eating, grooming, and bed mobility, modified independence for toileting, bathing transfers and for ambulation with the least restrictive device. It is anticipated he will continue to require assistance for dressing, household management, shopping, and meal preparation. 03/06/17 10:53 Subjective: CC: urinary retention, neurological stability No acute events overnight. Retained about 400 cc on bladder scan this morning. Has had prostate eval about 2 yr ago with PCP, was "OK". Urinary incontinence 2- 3 x per week, relatively new. No symptoms of orthostatic hypotension. Has not been on alpha blockers in the past. No new fever, chill, numbness, tingling, or weakness. Reports some dry eye. Objective: Vital Signs Temp Pulse Resp BP Pulse Ox 36.6 C 60 16 125/71 H 97 03/06/17 07:09 03/06/17 07:09 03/06/17 07:09 03/06/17 07:09 03/06/17 07:09 03/05/17 03/06/17 03/07/17 05:59 05:59 05:59 Intake Total 880 Output Total 1500 Balance -620 Physical Exam - Physical Exam General Appearance: alert, no apparent distress EENT: No scleral icterus (R), No scleral icterus (L) Respiratory: normal breath sounds, No respiratory distress Cardiac/Chest: normal peripheral pulses, regular rate, rhythm Abdomen: non-tender, soft Skin: normal color, warm/dry Extremities: non-tender, No pedal edema, No swelling Neuro/Psych: alert, normal mood/affect, oriented x 3 ICD10 Worksheet Patient Problems: Problems Problem Status Onset Urinary retention Acute Dementia without behavioral disturbance Acute Parkinson disease Acute Rhabdomyolysis Acute Weakness Acute - ICD10 Problem Qualifiers (1) Urinary retention
[2017-03-06 15:01] LABS: COLOR YELLOW; LEUKOCYTE ESTERASE,URINE NEGATIVE (NEGATIVE); NITRITE,URINE NEGATIVE (NEGATIVE)
[2017-03-06] MEDS: DOXAZOSIN MESYLATE 1 MG TAB PO SCH (21:21)
[2017-03-07] MEDS: CARBIDOPA/LEVODOPA 25 MG/100 MG TAB PO SCH ×6 (00:42→21:13)
[2017-03-07] MEDS: RIVASTIGMINE TARTRATE 1.5 MG CAP PO SCH ×2 (08:04→21:13)
[2017-03-07] MEDS: ENOXAPARIN 40 MG/0.4 ML SYR SC SCH (08:04)
[2017-03-07] MEDS: POLYETHYLENE GLYCOL 3350 17 GM PKT PO SCH (08:04)
[2017-03-07] MEDS: NON-FORMULARY NEW DRUG (Mirabegron [Myrbetriq] 50 MG) PO SCH (08:08)
[2017-03-07] MEDS: SENNOSIDES 1 TAB PO SCH ×2 (10:09→21:14)
--- NOTE | 2017-03-07 12:47 | SOAPPROG ---
SOAP Progress Note Assessment/Plan: Assessment: 1. Debility following functional decline and falls. Physical therapy and occupational therapy to optimize mobility and activities of daily living. 2. Parkinson disease. He is treated with Sinemet. His functional status will be monitored and medication adjustments will be considered in the setting. With Lewy body dementia, it is not always responsive to dopaminergic medication. 3. Lewy body dementia. Continue rivastigmine. Assessment and treatment per Speech and Language Pathology. 4. Constipation. He will be on a bowel program with senna and polyethylene glycol scheduled, and bisacodyl suppository will be available on an as-needed basis. 5. Possible history of overactive bladder versus urinary incontinence. Continue mirabegron. We will bladder scan p.r.n. to rule out urinary retention. 6. Unclear etiology of multiple falls, though progressive Lewy body dementia with retropulsion may well explain it. We will check orthostatic vital signs. 7. Prophylaxis. He has been prescribed enoxaparin 40 mg subcutaneous daily for deep venous thrombosis prophylaxis, and this will be continued until his mobility improves. There is no indication for gastrointestinal prophylaxis, as he does not appear to be an elevated risk for gastric ulcers. 8. Urinary retention: (new problem 03/09): increased PVR of approx 400 cc 03/09, most likely related to BPH. He has had incontinence approx 2-3 times per week. Trial of doxazosin 1 mg po QHS with close monitoring of possible orthostatic hypotension. URINARY INCONTINENCE MOST LIKELY DUE TO OVERFILLING OF BLADDER DUE TO BPH. WOULD RECOMMEND TITRATING DOXAZOSIN TO 4MG QHS. Will need additional follow up with PCP on the issue after discharge. 9. Dispo: ELOS 10-14 days, home with mami. For a safe discharge, he will need to achieve independence with eating, grooming, and bed mobility, modified independence for toileting, bathing transfers and for ambulation with the least restrictive device. It is anticipated he will continue to require assistance for dressing, household management, shopping, and meal preparation. 10. R/O UTI- U/A RESULTS NEGATIVE FROM 03/06 Plan: 03/07/17 12:49 Subjective: He denies dysuria or difficulty voiding. He denies suprapubic or flank pain. Objective: Vital Signs Temp Pulse Resp BP Pulse Ox 36.9 C 63 16 115/74 93 03/07/17 06:13 03/07/17 06:13 03/07/17 06:13 03/07/17 06:13 03/07/17 06:13 03/06/17 03/07/17 03/08/17 05:59 05:59 05:59 Intake Total 880 1300 354 Output Total 1500 350 300 Balance -620 950 54 Physical Exam - Physical Exam General Appearance: WD/WN, alert Respiratory: chest non-tender, lungs clear Cardiac/Chest: No edema, No JVD Abdomen: normal bowel sounds, non-tender, soft, distended (slight distension), other (no suprapubic tenderness), No guarding Male Genitalia: other Skin: normal color, warm/dry Extremities: No swelling, No Thi's sign Neuro/Psych: alert, normal mood/affect ICD10 Worksheet Patient Problems: Problems Problem Status Onset Urinary retention Acute Dementia without behavioral disturbance Acute Parkinson disease Acute Rhabdomyolysis Acute Weakness Acute
[2017-03-07] MEDS: DOXAZOSIN MESYLATE 1 MG TAB PO SCH (21:13)
[2017-03-08] MEDS: CARBIDOPA/LEVODOPA 25 MG/100 MG TAB PO SCH ×6 (00:01→20:53)
[2017-03-08] MEDS: RIVASTIGMINE TARTRATE 1.5 MG CAP PO SCH ×2 (10:39→20:52)
[2017-03-08] MEDS: ENOXAPARIN 40 MG/0.4 ML SYR SC SCH (10:39)
[2017-03-08] MEDS: POLYETHYLENE GLYCOL 3350 17 GM PKT PO SCH (10:39)
[2017-03-08] MEDS: SENNOSIDES 1 TAB PO SCH ×2 (10:40→20:52)
[2017-03-08] MEDS: NON-FORMULARY NEW DRUG (Mirabegron [Myrbetriq] 50 MG) PO SCH (10:40)
[2017-03-08] MEDS: DOXAZOSIN MESYLATE 1 MG TAB PO SCH (20:52)
[2017-03-08] MEDS ORDERED: DESMOPRESSIN 10 MCG/0.1 ML 5ML NASAL SPRAY ALTNARE SCH (21:00)
[2017-03-09] MEDS: CARBIDOPA/LEVODOPA 25 MG/100 MG TAB PO SCH ×7 (00:55→23:50)
[2017-03-09] MEDS: RIVASTIGMINE TARTRATE 1.5 MG CAP PO SCH ×2 (10:27→21:08)
[2017-03-09] MEDS: ENOXAPARIN 40 MG/0.4 ML SYR SC SCH (10:27)
[2017-03-09] MEDS: SENNOSIDES 1 TAB PO SCH ×2 (10:27→21:08)
[2017-03-09] MEDS: NON-FORMULARY NEW DRUG (Mirabegron [Myrbetriq] 50 MG) PO SCH (10:33)
[2017-03-09] MEDS: POLYETHYLENE GLYCOL 3350 17 GM PKT PO SCH (10:38)
--- NOTE | 2017-03-09 12:14 | SOAPPROG ---
SOAP Progress Note Assessment/Plan: Assessment: 61-year-old man with Parkinson disease and Lewy body dementia, who has had a decline in function over approximately a month with numerous falls until eventually he was too debilitated for his fiancee to take care of him. Found to have rhabdomyolysis, resolved with hydration, now on IPR for impairments in mobility and self care, and cognition. * Debility following functional decline and falls. Initial FIM59. Bed mobility SBA. Walked 300' FWW. Poor balance awareness and motor planning. Frequent cues; does not retain strategies. Continue physical therapy and occupational therapy to optimize mobility and activities of daily living. * Lewy body dementia. Continue rivastigmine. TRAVEL OCCUPATIONAL THERAPIST for cognitive testing to establish baseline. Needing 24 hour supervision. Hallucinating people in the room who are not there. * Parkinson disease. Continue Sinemet. * Constipation. Responding to bowel program with senna and polyethylene glycol scheduled. Bisacodyl suppository is available on an as-needed basis. * Possible history of overactive bladder versus urinary incontinence. Continue mirabegron. Doxazosin has been initiated for rule out urinary retention; will change to tamsulosin for easier dosing and fewer adverse effects. Fiancee requesting desmopressin; will discuss further. * Unclear etiology of multiple falls, though progressive Lewy body dementia with retropulsion may well explain it. We will check orthostatic vital signs. Prophylaxis. He has been prescribed enoxaparin 40 mg subcutaneous daily for deep venous thrombosis prophylaxis. Mobility is much improved; will discontinue enoxaparin 03/10/17. There is no indication for gastrointestinal prophylaxis, as he does not appear to be an elevated risk for gastric ulcers. * Urinary retention: increased PVR of approx 400 cc 03/09, most likely related to BPH. He has had incontinence approx 2-3 times per week. Doxazosin 1 mg po QHS started 03/06/17. Change to tamsulosin 0.4 ng QD on 03/09/17. Attended staffing, 15 min. D/W case mgmt, nursing, PT, OT, TRAVEL OCCUPATIONAL THERAPIST. Prognosis for independent function without fall/safety risk is poor; will likely eed 24 hour supervision. customer success manager to investigate further re finances. Has Medicaid. Appropriate discharge may be to SNF. 03/09/17 12:14 Subjective: No complaints. Slept well. Denies pain, f/c, cough/dyspnea. asks re restarting desmopressin (per nurse report). Objective: Vital Signs Temp Pulse Resp BP Pulse Ox 36.5 C 59 L 16 109/60 95 03/09/17 07:57 03/09/17 07:57 03/09/17 07:57 03/09/17 07:57 03/09/17 07:57 03/08/17 03/09/17 03/10/17 05:59 05:59 05:59 Intake Total 1040 500 240 Output Total 600 450 200 Balance 440 50 40 - Time Spent With Patient Time Spent With Patient: Greater than 35 minutes floor time today, including more than 50% or time in coordination of care during staffing, and counseling patient. Physical Exam - Physical Exam General Appearance: WD/WN, alert, no apparent distress Respiratory: normal breath sounds, No crackles, No rhonchi, No wheezing Cardiac/Chest: regular rate, rhythm, No edema Skin: normal color, warm/dry Neuro/Psych: no motor/sensory deficits, alert, normal mood/affect ICD10 Worksheet Patient Problems: Problems Problem Status Onset Urinary retention Acute Dementia without behavioral disturbance Acute Parkinson disease Acute Rhabdomyolysis Acute Weakness Acute
[2017-03-09] MEDS: TAMSULOSIN HCL 0.4 MG CAP PO SCH (15:33)
[2017-03-10] MEDS: CARBIDOPA/LEVODOPA 25 MG/100 MG TAB PO SCH ×5 (04:17→20:04)
[2017-03-10] MEDS: TAMSULOSIN HCL 0.4 MG CAP PO SCH (08:42)
[2017-03-10] MEDS: SENNOSIDES 1 TAB PO SCH ×2 (08:42→20:04)
[2017-03-10] MEDS: RIVASTIGMINE TARTRATE 1.5 MG CAP PO SCH ×2 (08:43→20:04)
[2017-03-10] MEDS: POLYETHYLENE GLYCOL 3350 17 GM PKT PO SCH (08:43)
[2017-03-10] MEDS: NON-FORMULARY NEW DRUG (Mirabegron [Myrbetriq] 50 MG) PO SCH (08:45)
[2017-03-10] MEDS: ENOXAPARIN 40 MG/0.4 ML SYR SC SCH (08:47)
--- NOTE | 2017-03-10 14:36 | SOAPPROG ---
SOAP Progress Note Assessment/Plan: Assessment: 61-year-old man with Parkinson disease and Lewy body dementia, who has had a decline in function over approximately a month with numerous falls until eventually he was too debilitated for his maxinee to take care of him. Found to have rhabdomyolysis, resolved with hydration, now on IPR for impairments in mobility and self care, and cognition. * Debility following functional decline and falls. Initial FIM 59 on 03/09/17. Bed mobility SBA. Walked 300' FWW. Poor balance awareness and motor planning. Frequent cues; does not retain strategies. Continue physical therapy and occupational therapy to optimize mobility and activities of daily living. * Lewy body dementia. Continue rivastigmine. SECURITY INVESTIGATOR for cognitive testing to establish baseline. Needing 24 hour supervision. Hallucinating people in the room who are not there. * Parkinson disease. Continue Sinemet. * Urinary retention: increased PVR of approx 400 cc 03/09; 157 on 03/10/17, most likely related to BPH. Urology note from 03/2016 reviewed: was prescribed tamsulosin and mirabegron; cystoscpoy showed trabeculated bladder and mild prostatic hypertrophy. Had incontinence overnight 03/09/17. Doxazosin 1 mg po QHS started 03/06/17. Change to tamsulosin 0.4 mg QD on 03/09/17. Continue mirabegron. May use desmopressin brought in by mami. * Constipation. Responding to bowel program with senna and polyethylene glycol scheduled. Bisacodyl suppository is available on an as-needed basis. * Unclear etiology of multiple falls, though progressive Lewy body dementia with retropulsion may well explain it. We will check orthostatic vital signs. Prophylaxis. He has been prescribed enoxaparin 40 mg subcutaneous daily for deep venous thrombosis prophylaxis. Mobility is much improved; will discontinue enoxaparin 03/10/17. There is no indication for gastrointestinal prophylaxis, as he does not appear to be an elevated risk for gastric ulcers. Prognosis for independent function without fall/safety risk is poor; will likely eed 24 hour supervision. pre press manager to investigate further re finances. Has Medicaid. Appropriate discharge may be to SNF. 03/10/17 14:36 Subjective: Still with urinary incontinence. Mami wants to use desmopressin at night. He also has subjective hesitancy, as well as urgency. Mami reports that episode of falls which prompted hospitalization happened after large volume urinary incontinence at night, soaking mattress. Objective: Vital Signs Temp Pulse Resp BP Pulse Ox 36.6 C 62 16 121/75 H 95 03/10/17 07:19 03/10/17 07:19 03/10/17 07:19 03/10/17 07:19 03/10/17 07:19 03/09/17 03/10/17 03/11/17 05:59 05:59 05:59 Intake Total 314 164 3599 Output Total 450 1000 Balance 50 -10 1140 Physical Exam - Physical Exam General Appearance: WD/WN, alert, no apparent distress Respiratory: normal breath sounds, No crackles, No rhonchi, No wheezing Cardiac/Chest: regular rate, rhythm, No edema Skin: normal color, warm/dry Neuro/Psych: alert, normal mood/affect, other (Slow movement) ICD10 Worksheet Patient Problems: Problems Problem Status Onset Urinary retention Acute Dementia without behavioral disturbance Acute Parkinson disease Acute Rhabdomyolysis Acute Weakness Acute
[2017-03-10] MEDS ORDERED: DESMOPRESSIN EACHNARE SCH (21:00)
[2017-03-11] MEDS: CARBIDOPA/LEVODOPA 25 MG/100 MG TAB PO SCH ×6 (00:17→20:09)
[2017-03-11] MEDS ORDERED: DESMOPRESSIN 10 MCG/0.1 ML 5ML NASAL SPRAY ALTNARE SCH (09:00)
[2017-03-11] MEDS: ENOXAPARIN 40 MG/0.4 ML SYR SC SCH (09:15)
[2017-03-11] MEDS: NON-FORMULARY NEW DRUG (Mirabegron [Myrbetriq] 50 MG) PO SCH (09:15)
[2017-03-11] MEDS: POLYETHYLENE GLYCOL 3350 17 GM PKT PO SCH (09:17)
[2017-03-11] MEDS: RIVASTIGMINE TARTRATE 1.5 MG CAP PO SCH (09:18)
[2017-03-11] MEDS: TAMSULOSIN HCL 0.4 MG CAP PO SCH (09:19)
[2017-03-11] MEDS: SENNOSIDES 1 TAB PO SCH ×2 (09:19→20:10)
[2017-03-11] MEDS: SODIUM CHLORIDE 2% EACHEYE PRN (09:21)
--- NOTE | 2017-03-11 18:47 | SOAPPROG ---
SOAP Progress Note Assessment/Plan: Assessment: 61-year-old man with Parkinson disease and Lewy body dementia, who has had a decline in function over approximately a month with numerous falls until eventually he was too debilitated for his fijojoe to take care of him. Found to have rhabdomyolysis, resolved with hydration, now on IPR for impairments in mobility and self care, and cognition. * Debility following functional decline and falls. Initial FIM 59 on 03/09/17. Bed mobility SBA. Walked 300' FWW. Poor balance awareness and motor planning. Frequent cues; does not retain strategies. Continue physical therapy and occupational therapy to optimize mobility and activities of daily living. * Lewy body dementia. Progressing despite rivastigmine. WAFER FAB TECHNICIAN for cognitive testing to establish baseline. Needing 24 hour supervision. Hallucinating people in the room who are not there. * Parkinson disease. Continue Sinemet. * Urinary incontinence. Urology note from 03/2016 reviewed: was prescribed tamsulosin and mirabegron; cystoscopy showed trabeculated bladder and mild prostatic hypertrophy. Had incontinence overnight 03/09/17. Doxazosin 1 mg po QHS started 03/06/17. Change to tamsulosin 0.4 mg QD on 03/09/17. Continue mirabegron. Used desmopressin brought in by nanycjojoomero 03/10/17 but had incontinence overnight. Trial of d/c/ rivastigmine. * Constipation. Responding to bowel program with senna and polyethylene glycol scheduled. Bisacodyl suppository is available on an as-needed basis. * Unclear etiology of multiple falls, though progressive Lewy body dementia with retropulsion may well explain it. We will check orthostatic vital signs. Prophylaxis. He has been prescribed enoxaparin 40 mg subcutaneous daily for deep venous thrombosis prophylaxis. Mobility is much improved; will discontinue enoxaparin 03/10/17. There is no indication for gastrointestinal prophylaxis, as he does not appear to be an elevated risk for gastric ulcers. Prognosis for independent function without fall/safety risk is poor; will likely need 24 hour supervision. campground manager to investigate further re finances. Has Medicaid. Appropriate discharge may be to SNF. 03/11/17 18:45 Subjective: Frequent episodes of urinary incontinence overnight. He does not recall. Desmopressin did not prevent. O/W w/out complaint, though expresses concern re mami's absence 03/17 - 03/20. Objective: Vital Signs Temp Pulse Resp BP Pulse Ox 36.6 C 57 L 16 120/70 94 03/11/17 06:20 03/11/17 06:20 03/11/17 06:20 03/11/17 06:20 03/11/17 06:20 03/10/17 03/11/17 03/12/17 05:59 05:59 05:59 Intake Total 990 2620 1080 Output Total 1000 375 700 Balance -10 2245 380 Physical Exam - Physical Exam General Appearance: WD/WN, alert, no apparent distress Respiratory: No respiratory distress, No accessory muscle use Skin: normal color, warm/dry Neuro/Psych: alert, normal mood/affect, cognition abnormalities ICD10 Worksheet Patient Problems: Problems Problem Status Onset Urinary retention Acute Dementia without behavioral disturbance Acute Parkinson disease Acute Rhabdomyolysis Acute Weakness Acute
[2017-03-11] MEDS: DESMOPRESSIN 10 MCG/0.1 ML 5ML NASAL SPRAY EACHNARE SCH (20:10)
[2017-03-12] MEDS: CARBIDOPA/LEVODOPA 25 MG/100 MG TAB PO SCH ×7 (00:30→23:56)
[2017-03-12] MEDS: ENOXAPARIN 40 MG/0.4 ML SYR SC SCH (09:47)
[2017-03-12] MEDS: SENNOSIDES 1 TAB PO SCH ×2 (09:48→19:59)
[2017-03-12] MEDS: POLYETHYLENE GLYCOL 3350 17 GM PKT PO SCH ×3 (09:48→20:01)
[2017-03-12] MEDS: TAMSULOSIN HCL 0.4 MG CAP PO SCH (09:48)
[2017-03-12] MEDS: SODIUM CHLORIDE 2% EACHEYE PRN (09:49)
[2017-03-12] MEDS: NON-FORMULARY NEW DRUG (Mirabegron [Myrbetriq] 50 MG) PO SCH (09:49)
--- NOTE | 2017-03-12 09:54 | SOAPPROG ---
SOAP Progress Note Assessment/Plan: Assessment: 61-year-old man with Parkinson disease and Lewy body dementia, who has had a decline in function over approximately a month with numerous falls until eventually he was too debilitated for his fiancee to take care of him. Found to have rhabdomyolysis, resolved with hydration, now on IPR for impairments in mobility and self care, and cognition. * Debility following functional decline and falls. Initial FIM 59 on 03/09/17. Bed mobility SBA. Walked 300' FWW. Poor balance awareness and motor planning. Frequent cues; does not retain strategies. Continue physical therapy and occupational therapy to optimize mobility and activities of daily living. * Lewy body dementia. Progressing despite rivastigmine. CHILD CARE PROVIDER for cognitive testing to establish baseline. Needing 24 hour supervision. Hallucinating people in the room who are not there. Monitor for abrupt decline in cognitive function off rivastigmine. * Parkinson disease. Continue Sinemet. * Urinary incontinence. Urology note from 03/2016 reviewed: was prescribed tamsulosin and mirabegron; cystoscopy showed trabeculated bladder and mild prostatic hypertrophy. Had incontinence overnight 03/09/17. Doxazosin 1 mg po QHS started 03/06/17. Change to tamsulosin 0.4 mg QD on 03/09/17. Continue mirabegron. Used desmopressin brought in by mami 03/10/17 but had incontinence overnight. Trial of d/c/ rivastigmine: less incontinent overnight 03/11/17. * Constipation. Responding to bowel program with senna and polyethylene glycol scheduled. Bisacodyl suppository is available on an as-needed basis. * Unclear etiology of multiple falls, though progressive Lewy body dementia with retropulsion may well explain it. We will check orthostatic vital signs. Prophylaxis. He has been prescribed enoxaparin 40 mg subcutaneous daily for deep venous thrombosis prophylaxis. Mobility is much improved; will discontinue enoxaparin 03/10/17. There is no indication for gastrointestinal prophylaxis, as he does not appear to be an elevated risk for gastric ulcers. Prognosis for independent function without fall/safety risk is poor; will likely need 24 hour supervision. site project manager to investigate further re finances. Has Medicaid. Appropriate discharge may be to SNF. 03/12/17 09:52 Subjective: 2 episodes of incontinence overnight, which is an improvement. Had R foot and anle pain, and increased tremor R leg, which interfered with sleep. O/W w/out complaint. No f/c, cough/dyspnea, dysuria. Pain has resolved. Objective: Vital Signs Temp Pulse Resp BP Pulse Ox 37.2 C 71 16 107/67 96 03/12/17 08:00 03/12/17 08:00 03/12/17 08:00 03/12/17 08:00 03/12/17 08:00 03/11/17 03/12/17 03/13/17 05:59 05:59 05:59 Intake Total 2620 1380 360 Output Total 375 1150 Balance 2245 230 360 Physical Exam - Physical Exam General Appearance: WD/WN, alert, no apparent distress Respiratory: normal breath sounds, No crackles, No rhonchi, No wheezing Cardiac/Chest: regular rate, rhythm, No edema Skin: normal color, warm/dry Extremities: other (R ankle with nl ROM, minimal swelling aterior/lateral, NT, DP pulse 2+. No R calf tenderness.) Neuro/Psych: alert, normal mood/affect ICD10 Worksheet Patient Problems: Problems Problem Status Onset Urinary retention Acute Dementia without behavioral disturbance Acute Parkinson disease Acute Rhabdomyolysis Acute Weakness Acute
[2017-03-12] MEDS: ACETAMINOPHEN 325 MG TAB PO PRN ×2 (17:07→23:56)
[2017-03-12] MEDS: DESMOPRESSIN 10 MCG/0.1 ML 5ML NASAL SPRAY EACHNARE SCH (19:58)
[2017-03-13 01:07] LABS: COLOR YELLOW; LEUKOCYTE ESTERASE,URINE NEGATIVE (NEGATIVE); NITRITE,URINE NEGATIVE (NEGATIVE)
[2017-03-13] MEDS: CARBIDOPA/LEVODOPA 25 MG/100 MG TAB PO SCH ×5 (04:03→20:29)
[2017-03-13] MEDS: ACETAMINOPHEN 325 MG TAB PO PRN ×2 (05:31→20:30)
[2017-03-13 08:44] LABS: ANION GAP 9 mEq/L (8-16); CALCIUM 8.7 mg/dL (8.5-10.4); CARBON DIOXIDE 24 mEq/l (22-31); CHLORIDE 104 mEq/L (97-110); CREATININE 0.9 mg/dL (0.7-1.3); GLOMERULAR FILTRATION RATE > 60; GLUCOSE 75 mg/dL (70-100); POTASSIUM 4.6 mEq/L (3.5-5.2); SODIUM 137 mEq/L (134-144)
[2017-03-13] MEDS: NON-FORMULARY NEW DRUG (Mirabegron [Myrbetriq] 50 MG) PO SCH (08:53)
[2017-03-13] MEDS: TAMSULOSIN HCL 0.4 MG CAP PO SCH (08:53)
[2017-03-13] MEDS: SENNOSIDES 1 TAB PO SCH ×2 (08:53→20:29)
--- NOTE | 2017-03-13 14:08 | SOAPPROG ---
SOAP Progress Note Assessment/Plan: Assessment: 61-year-old man with Parkinson disease and Lewy body dementia, who has had a decline in function over approximately a month with numerous falls until eventually he was too debilitated for his fiancee to take care of him. Found to have rhabdomyolysis, resolved with hydration, now on IPR for impairments in mobility and self care, and cognition. * Debility following functional decline and falls. Initial FIM 59 on 03/09/17. Bed mobility SBA. Walked 300' FWW. Poor balance awareness and motor planning. Frequent cues; does not retain strategies. Continue physical therapy and occupational therapy to optimize mobility and activities of daily living. * Lewy body dementia. Progressing despite rivastigmine. HISTORIC PRESERVATIONIST for cognitive testing to establish baseline. Needing 24 hour supervision. Hallucinating people in the room who are not there. D/W HISTORIC PRESERVATIONIST 03/13/17: has not had abrupt decline in cognitive function off rivastigmine. * Parkinson disease. Continue Sinemet. * Urinary incontinence. Urology note from 03/2016 reviewed: was prescribed tamsulosin and mirabegron; cystoscopy showed trabeculated bladder and mild prostatic hypertrophy. Had incontinence overnight 03/09/17. Doxazosin 1 mg po QHS started 03/06/17. Change to tamsulosin 0.4 mg QD on 03/09/17. Continue mirabegron. Used desmopressin brought in by mami 03/10/17 but had incontinence overnight. Trial of d/c/ rivastigmine: less incontinent overnight 03/11/17; no incontinence overnight 03/12/17. * Constipation. Responding to bowel program with senna and polyethylene glycol scheduled. Bisacodyl suppository is available on an as-needed basis. * Unclear etiology of multiple falls, though progressive Lewy body dementia with retropulsion may well explain it. We will check orthostatic vital signs. * Prophylaxis. He has been prescribed enoxaparin 40 mg subcutaneous daily for deep venous thrombosis prophylaxis. Mobility is much improved; discontinued enoxaparin 03/10/17. There is no indication for gastrointestinal prophylaxis, as he does not appear to be an elevated risk for gastric ulcers. Prognosis for independent function without fall/safety risk is poor; will likely need 24 hour supervision. sales service route manager to investigate further re finances. Has Medicaid. Appropriate discharge may be to SNF. 03/13/17 14:05 Subjective: Still getting some spasms in his feet, though he thinks they're getting better. O/W w/out complaint. No f/c, cough, dyspnea, dysuria. Objective: Vital Signs Temp Pulse Resp BP Pulse Ox 37.0 C 68 14 109/73 95 03/13/17 08:00 03/13/17 08:00 03/13/17 08:00 03/13/17 08:00 03/13/17 08:00 Laboratory Results 03/13/17 06:00 03/12/17 03/13/17 03/14/17 05:59 05:59 05:59 Intake Total 1380 720 Output Total 1150 1670 325 Balance 230 -950 -325 Physical Exam - Physical Exam General Appearance: WD/WN, alert, no apparent distress Respiratory: No respiratory distress, No accessory muscle use Skin: normal color, warm/dry Neuro/Psych: no motor/sensory deficits, alert, normal mood/affect ICD10 Worksheet Patient Problems: Problems Problem Status Onset Urinary retention Acute Dementia without behavioral disturbance Acute Parkinson disease Acute Rhabdomyolysis Acute Weakness Acute
[2017-03-13] MEDS: METHOCARBAMOL 750 MG TAB PO SCH (20:29)
[2017-03-13] MEDS: POLYETHYLENE GLYCOL 3350 17 GM PKT PO SCH (20:30)
[2017-03-13] MEDS: DESMOPRESSIN 10 MCG/0.1 ML 5ML NASAL SPRAY EACHNARE SCH (20:46)
[2017-03-14] MEDS: CARBIDOPA/LEVODOPA 25 MG/100 MG TAB PO SCH ×7 (04:29→23:13)
[2017-03-14] MEDS: ACETAMINOPHEN 325 MG TAB PO PRN ×2 (05:39→20:47)
[2017-03-14] MEDS: TAMSULOSIN HCL 0.4 MG CAP PO SCH (08:47)
[2017-03-14] MEDS: NON-FORMULARY NEW DRUG (Mirabegron [Myrbetriq] 50 MG) PO SCH (08:47)
[2017-03-14] MEDS: SENNOSIDES 1 TAB PO SCH ×2 (08:47→20:47)
--- NOTE | 2017-03-14 13:39 | SOAPPROG ---
SOAP Progress Note Assessment/Plan: Assessment: 61-year-old man with Parkinson disease and Lewy body dementia, who has had a decline in function over approximately a month with numerous falls until eventually he was too debilitated for his fiancee to take care of him. Found to have rhabdomyolysis, resolved with hydration, now on IPR for impairments in mobility and self care, and cognition. 03/14/2017- still has some nocturnal enuresis, does not want additional changes to bladder plan for now. No other acute issues, therapy going well and he is neurologically stable. * Debility following functional decline and falls. Initial FIM 59 on 03/09/17. Bed mobility SBA. Walked 300' FWW. Poor balance awareness and motor planning. Frequent cues; does not retain strategies. Continue physical therapy and occupational therapy to optimize mobility and activities of daily living. * Lewy body dementia. Progressing despite rivastigmine. DATABASE COORDINATOR for cognitive testing to establish baseline. Needing 24 hour supervision. Hallucinating people in the room who are not there. D/W DATABASE COORDINATOR 03/13/17: has not had abrupt decline in cognitive function off rivastigmine. * Parkinson disease. Continue Sinemet. * Urinary incontinence. Urology note from 03/2016 reviewed: was prescribed tamsulosin and mirabegron; cystoscopy showed trabeculated bladder and mild prostatic hypertrophy. Had incontinence overnight 03/09/17. Doxazosin 1 mg po QHS started 03/06/17. Change to tamsulosin 0.4 mg QD on 03/09/17. Continue mirabegron. Used desmopressin brought in by mami 03/10/17 but had incontinence overnight. Trial of d/c/ rivastigmine: less incontinent overnight 03/11/17; no incontinence overnight 03/12/17. * Constipation. Responding to bowel program with senna and polyethylene glycol scheduled. Bisacodyl suppository is available on an as-needed basis. * Unclear etiology of multiple falls, though progressive Lewy body dementia with retropulsion may well explain it. We will check orthostatic vital signs. * Prophylaxis. He has been prescribed enoxaparin 40 mg subcutaneous daily for deep venous thrombosis prophylaxis. Mobility is much improved; discontinued enoxaparin 03/10/17. There is no indication for gastrointestinal prophylaxis, as he does not appear to be an elevated risk for gastric ulcers. Prognosis for independent function without fall/safety risk is poor; will likely need 24 hour supervision. chemical plant manager to investigate further re finances. Has Medicaid. Appropriate discharge may be to SNF. 03/06/17 10:53 03/14/17 13:36 Subjective: CC: bladder incontinence Had nocturnal enuresis x 2 last night, highly variable. He would like to avoid further medication changes tonight. Otherwise his therapy is going well, no new numbness, tingling, or weakness. Objective: Vital Signs Temp Pulse Resp BP Pulse Ox 36.9 C 65 16 139/87 H 95 03/14/17 06:42 03/14/17 06:42 03/14/17 06:42 03/14/17 06:42 03/14/17 06:42 Laboratory Results 03/13/17 06:00 03/13/17 03/14/17 03/15/17 05:59 05:59 05:59 Intake Total 720 1354 840 Output Total 1670 675 Balance -950 679 840 Physical Exam - Physical Exam General Appearance: alert, no apparent distress Respiratory: No respiratory distress, No accessory muscle use Cardiac/Chest: regular rate, rhythm, No edema Skin: normal color, warm/dry Extremities: No pedal edema, No swelling Neuro/Psych: alert, normal mood/affect ICD10 Worksheet Patient Problems: Problems Problem Status Onset Urinary retention Acute Dementia without behavioral disturbance Acute Parkinson disease Acute Rhabdomyolysis Acute Weakness Acute - ICD10 Problem Qualifiers (1) Urinary retention
[2017-03-14] MEDS ORDERED: GABAPENTIN 100 MG CAP PO ONE (16:20)
[2017-03-14] MEDS: METHOCARBAMOL 750 MG TAB PO SCH (20:47)
[2017-03-14] MEDS: POLYETHYLENE GLYCOL 3350 17 GM PKT PO SCH (20:47)
[2017-03-14] MEDS: GABAPENTIN 100 MG CAP PO SCH (20:47)
[2017-03-14] MEDS: DESMOPRESSIN 10 MCG/0.1 ML 5ML NASAL SPRAY EACHNARE SCH (22:18)
[2017-03-15] MEDS: ACETAMINOPHEN 325 MG TAB PO PRN ×2 (04:25→19:50)
[2017-03-15] MEDS: CARBIDOPA/LEVODOPA 25 MG/100 MG TAB PO SCH ×5 (04:25→19:49)
[2017-03-15] MEDS: GABAPENTIN 100 MG CAP PO SCH ×3 (07:38→22:28)
[2017-03-15] MEDS: SENNOSIDES 1 TAB PO SCH ×2 (07:38→19:49)
[2017-03-15] MEDS: TAMSULOSIN HCL 0.4 MG CAP PO SCH (07:38)
[2017-03-15] MEDS: NON-FORMULARY NEW DRUG (Mirabegron [Myrbetriq] 50 MG) PO SCH (07:44)
--- NOTE | 2017-03-15 12:36 | SOAPPROG ---
SOAP Progress Note Assessment/Plan: Assessment: 61-year-old man with Parkinson disease and Lewy body dementia, who has had a decline in function over approximately a month with numerous falls until eventually he was too debilitated for his fiancee to take care of him. Found to have rhabdomyolysis, resolved with hydration, now on IPR for impairments in mobility and self care, and cognition. 03/15/2017- Shoulder and arm pain much better with addition of low dose gabapentin. Participating well in therapies. Some continued nocturnal enuresis, scheduling voids. * Debility following functional decline and falls. Initial FIM 59 on 03/09/17. Bed mobility SBA. Walked 300' FWW. Poor balance awareness and motor planning. Frequent cues; does not retain strategies. Continue physical therapy and occupational therapy to optimize mobility and activities of daily living. * Lewy body dementia. Progressing despite rivastigmine. SHELL TRIM TOOL SETTER for cognitive testing to establish baseline. Needing 24 hour supervision. Hallucinating people in the room who are not there. D/W SHELL TRIM TOOL SETTER 03/13/17: has not had abrupt decline in cognitive function off rivastigmine. * Parkinson disease. Continue Sinemet. * Urinary incontinence. Urology note from 03/2016 reviewed: was prescribed tamsulosin and mirabegron; cystoscopy showed trabeculated bladder and mild prostatic hypertrophy. Had incontinence overnight 03/09/17. Doxazosin 1 mg po QHS started 03/06/17. Change to tamsulosin 0.4 mg QD on 03/09/17. Continue mirabegron. Used desmopressin brought in by maxineomero 03/10/17 but had incontinence overnight. Trial of d/c/ rivastigmine: less incontinent overnight 03/11/17; no incontinence overnight 03/12/17, but continued at a lower level. Scheduled voids. * Constipation. Responding to bowel program with senna and polyethylene glycol scheduled. Bisacodyl suppository is available on an as-needed basis. * Unclear etiology of multiple falls, though progressive Lewy body dementia with retropulsion may well explain it. We will check orthostatic vital signs. * Prophylaxis. He has been prescribed enoxaparin 40 mg subcutaneous daily for deep venous thrombosis prophylaxis. Mobility is much improved; discontinued enoxaparin 03/10/17. There is no indication for gastrointestinal prophylaxis, as he does not appear to be an elevated risk for gastric ulcers. * Right shoulder pain: most consistent with radicular pain, no other neuro symptoms. Better with scheduled gabapentin 100 mg TID. Prognosis for independent function without fall/safety risk is poor; will likely need 24 hour supervision. manager drug safety to investigate further re finances. Has Medicaid. Appropriate discharge may be to SNF. 03/06/17 10:53 03/14/17 13:36 03/15/17 12:33 Subjective: cc: shoulder and arm pain Much improved, dull ache now on gabapentin. Continued enuresis, not doing timed voids. Otherwise therapies going well, no new numbness, tingling, or weakness. Objective: Vital Signs Temp Pulse Resp BP Pulse Ox 36.6 C 61 18 135/85 H 94 03/15/17 06:16 03/15/17 06:16 03/15/17 06:16 03/15/17 06:16 03/15/17 06:16 Laboratory Results 03/13/17 06:00 03/14/17 03/15/17 03/16/17 05:59 05:59 05:59 Intake Total 1354 2020 660 Output Total 675 1000 525 Balance 679 1020 135 Physical Exam - Physical Exam General Appearance: alert, no apparent distress EENT: No scleral icterus (R), No scleral icterus (L) Respiratory: normal breath sounds, No respiratory distress Cardiac/Chest: regular rate, rhythm, No edema Skin: normal color, warm/dry Extremities: non-tender, No pedal edema, No swelling Neuro/Psych: alert, normal mood/affect ICD10 Worksheet Patient Problems: Problems Problem Status Onset Urinary retention Acute Dementia without behavioral disturbance Acute Parkinson disease Acute Rhabdomyolysis Acute Weakness Acute - ICD10 Problem Qualifiers (1) Urinary retention
[2017-03-15] MEDS: METHOCARBAMOL 750 MG TAB PO SCH (19:49)
[2017-03-15] MEDS: POLYETHYLENE GLYCOL 3350 17 GM PKT PO SCH (19:49)
[2017-03-15] MEDS: DESMOPRESSIN 10 MCG/0.1 ML 5ML NASAL SPRAY EACHNARE SCH (19:52)
[2017-03-16] MEDS: CARBIDOPA/LEVODOPA 25 MG/100 MG TAB PO SCH ×6 (00:26→21:11)
[2017-03-16] MEDS: ACETAMINOPHEN 325 MG TAB PO PRN ×3 (05:41→22:41)
[2017-03-16] MEDS: GABAPENTIN 100 MG CAP PO SCH ×3 (08:22→21:11)
[2017-03-16] MEDS: SENNOSIDES 1 TAB PO SCH ×2 (08:23→21:11)
[2017-03-16] MEDS: NON-FORMULARY NEW DRUG (Mirabegron [Myrbetriq] 50 MG) PO SCH (08:23)
[2017-03-16] MEDS: TAMSULOSIN HCL 0.4 MG CAP PO SCH (08:23)
--- NOTE | 2017-03-16 10:28 | SOAPPROG ---
SOAP Progress Note Assessment/Plan: Assessment: 61-year-old man with Parkinson disease and Lewy body dementia, who has had a decline in function over approximately a month with numerous falls until eventually he was too debilitated for his fiancee to take care of him. Found to have rhabdomyolysis, resolved with hydration, now on IPR for impairments in mobility and self care, and cognition. * Debility following functional decline and falls. Initial FIM 59 on 03/09/17; improved to 68 on 03/16/17. Bed mobility variable supervision to min A if he has freezing episode. Walked 300' 4WW. Frequent cues especially to perform ADLs while managing 4WW; does not retain strategies. Continue physical therapy and occupational therapy to optimize mobility and activities of daily living. * Lewy body dementia. No decline noted off rivastigmine. Moderate to severe deficits to memory, attention, problem solving, executive function, speed of processing. Needs task segmentation and cuing to complete. Continue ORTHOPEDICS TEACHER. Likely no role for memantine per [employer]To[employer] review. * Parkinson disease. Continue Sinemet. * Urinary incontinence. Much improved with d/c of rivastigmine and Q 2 hr toileting overnight. Reduce fluids after dinner. Goal to extend overnight toileting towards Q 4 hr.. Urology note from 03/2016 reviewed: was prescribed tamsulosin and mirabegron; cystoscopy showed trabeculated bladder and mild prostatic hypertrophy. Had incontinence overnight 03/09/17. Doxazosin 1 mg po QHS started 03/06/17. Change to tamsulosin 0.4 mg QD on 03/09/17. Continue mirabegron, HS desmopressin. * Foot cramps. No electrolyte abnormalities on labs 03/13/17. Improved with methocarbamol at HS. * Constipation. Responding to bowel program with senna and polyethylene glycol scheduled. Bisacodyl suppository is available on an as-needed basis. * Unclear etiology of multiple falls, though progressive Lewy body dementia with retropulsion may well explain it. Non-orthostatic sitting to standing 03/09; recheck orthostatics supine to standing. * Prophylaxis. He has been prescribed enoxaparin 40 mg subcutaneous daily for deep venous thrombosis prophylaxis. Mobility is much improved; discontinued enoxaparin 03/10/17. There is no indication for gastrointestinal prophylaxis, as he does not appear to be an elevated risk for gastric ulcers. Attended staffing, 15 min. D/W case mgmt,nursing, shredder/granulator operator, pharmacist, PT, OT , ORTHOPEDICS TEACHER. Prognosis for independent function without fall/safety risk is poor; will likely need 24 hour supervision. medical affairs manager to investigate further re finances. Has Medicaid. Discharge planned to home with mami. Tentative discharge date 03/23/17. 03/16/17 12:09 Subjective: No complaints. Sleeping well. Not in pain. Reports improved nocturnal urinary incontinence "with the equipment in place," gesturing to hand-held urinal. Objective: Vital Signs Temp Pulse Resp BP Pulse Ox 36.8 C 56 L 16 120/75 97 03/16/17 06:25 03/16/17 06:25 03/16/17 06:25 03/16/17 06:25 03/16/17 06:25 Laboratory Results 03/13/17 06:00 03/15/17 03/16/17 03/17/17 05:59 05:59 05:59 Intake Total 2019 1600 800 Output Total 1000 3026 325 Balance 1029 -1642 242 - Time Spent With Patient Time Spent With Patient: Greater than 35 minutes floor time today, including more than 50% of time in coordination of care during staffing meeting, and counseling patient and fiancee. Physical Exam - Physical Exam General Appearance: WD/WN, alert, no apparent distress Respiratory: normal breath sounds, No crackles, No rhonchi, No wheezing Cardiac/Chest: regular rate, rhythm, No edema Neuro/Psych: no motor/sensory deficits, alert, normal mood/affect, other ( resting tremor BUE.) ICD10 Worksheet Patient Problems: Problems Problem Status Onset Urinary retention Acute Dementia without behavioral disturbance Acute Parkinson disease Acute Rhabdomyolysis Acute Weakness Acute
[2017-03-16] MEDS: POLYETHYLENE GLYCOL 3350 17 GM PKT PO SCH (21:11)
[2017-03-16] MEDS: METHOCARBAMOL 750 MG TAB PO SCH (21:11)
[2017-03-16] MEDS: DESMOPRESSIN 10 MCG/0.1 ML 5ML NASAL SPRAY EACHNARE SCH (21:11)
[2017-03-17] MEDS: CARBIDOPA/LEVODOPA 25 MG/100 MG TAB PO SCH ×6 (00:04→19:39)
[2017-03-17] MEDS: ACETAMINOPHEN 325 MG TAB PO PRN (07:30)
[2017-03-17] MEDS: TAMSULOSIN HCL 0.4 MG CAP PO SCH (09:29)
[2017-03-17] MEDS: GABAPENTIN 100 MG CAP PO SCH ×3 (09:29→18:22)
[2017-03-17] MEDS: SENNOSIDES 1 TAB PO SCH ×2 (09:29→21:43)
[2017-03-17] MEDS ORDERED: GABAPENTIN 100 MG CAP PO ONE (09:29)
[2017-03-17] MEDS: NON-FORMULARY NEW DRUG (Mirabegron [Myrbetriq] 50 MG) PO SCH (09:31)
--- NOTE | 2017-03-17 09:55 | SOAPPROG ---
SOAP Progress Note Assessment/Plan: Assessment: 61-year-old man with Parkinson disease and Lewy body dementia, who has had a decline in function over approximately a month with numerous falls until eventually he was too debilitated for his fiancee to take care of him. Found to have rhabdomyolysis, resolved with hydration, now on IPR for impairments in mobility and self care, and cognition. 03/17/2017- Shoulder pain improved but still has achy and electric qualities. Increase AM gabapentin dose to 300 mg, remaining doses at 100 mg, one time dose today of 200 mg. Otherwise doing well, continues to have some incontinence. Neurologically stable. * Debility following functional decline and falls. Initial FIM 59 on 03/09/17; improved to 68 on 03/16/17. Bed mobility variable supervision to min A if he has freezing episode. Walked 300' 4WW. Frequent cues especially to perform ADLs while managing 4WW; does not retain strategies. Continue physical therapy and occupational therapy to optimize mobility and activities of daily living. * Lewy body dementia. No decline noted off rivastigmine. Moderate to severe deficits to memory, attention, problem solving, executive function, speed of processing. Needs task segmentation and cuing to complete. Continue COMMISSION FOR THE BLIND DIRECTOR. Likely no role for memantine per UpToDate review. * Parkinson disease. Continue Sinemet. * Urinary incontinence. Much improved with d/c of rivastigmine and Q 2 hr toileting overnight. Reduce fluids after dinner. Goal to extend overnight toileting towards Q 4 hr. Urology note from 03/2016 reviewed: was prescribed tamsulosin and mirabegron; cystoscopy showed trabeculated bladder and mild prostatic hypertrophy. Had incontinence overnight 03/09/17. Doxazosin 1 mg po QHS started 03/06/17. Change to tamsulosin 0.4 mg QD on 03/09/17. Continue mirabegron, HS desmopressin. * Foot cramps. No electrolyte abnormalities on labs 03/13/17. Improved with methocarbamol at HS. * Constipation. Responding to bowel program with senna and polyethylene glycol scheduled. Bisacodyl suppository is available on an as-needed basis. * Unclear etiology of multiple falls, though progressive Lewy body dementia with retropulsion may well explain it. Non-orthostatic sitting to standing 03/09; recheck orthostatics supine to standing. * Prophylaxis. He has been prescribed enoxaparin 40 mg subcutaneous daily for deep venous thrombosis prophylaxis. Mobility is much improved; discontinued enoxaparin 03/10/17. There is no indication for gastrointestinal prophylaxis, as he does not appear to be an elevated risk for gastric ulcers. * Shoulder pain: likely radic, increase gabapentin and monitor. Suggested massage is he is open to it. Prognosis for independent function without fall/safety risk is poor; will likely need 24 hour supervision. pmp project manager to investigate further re finances. Has Medicaid. Discharge planned to home with mami. Tentative discharge date 03/23/17. 03/17/17 09:33 Subjective: CC: shoulder pain No acute events overnight, some incont. Pt has a bit worsened shoulder pain today, similar to prior with aching and electric pain. located posteriorly for aching pain, and electric down the arm. No new numbness, tingling, or weakness. Participating well in therapies. Objective: Vital Signs Temp Pulse Resp BP Pulse Ox 37.0 C 69 16 120/87 H 93 03/16/17 20:00 03/16/17 20:00 03/16/17 20:00 03/16/17 20:00 03/16/17 20:00 Laboratory Results 03/13/17 06:00 03/16/17 03/17/17 03/18/17 05:59 05:59 05:59 Intake Total 1600 2288 Output Total 3026 1175 Balance -1426 1113 Physical Exam - Physical Exam General Appearance: alert, no apparent distress EENT: No scleral icterus (R), No scleral icterus (L) Respiratory: No respiratory distress, No accessory muscle use Cardiac/Chest: regular rate, rhythm, No edema Skin: normal color, warm/dry Extremities: other (no erythema, tentative on ROM testing. ), No non-tender ( Tender in posterior shoulder/ scapular musculature. ), No swelling Neuro/Psych: alert, normal mood/affect ICD10 Worksheet Patient Problems: Problems Problem Status Onset Urinary retention Acute Dementia without behavioral disturbance Acute Parkinson disease Acute Rhabdomyolysis Acute Weakness Acute - ICD10 Problem Qualifiers (1) Urinary retention
[2017-03-17] MEDS ORDERED: METHOCARBAMOL 750 MG TAB PO ONE (09:58)
[2017-03-17] MEDS: POLYETHYLENE GLYCOL 3350 17 GM PKT PO SCH (19:56)
[2017-03-17] MEDS: METHOCARBAMOL 750 MG TAB PO SCH (21:43)
[2017-03-17] MEDS: DESMOPRESSIN 10 MCG/0.1 ML 5ML NASAL SPRAY EACHNARE SCH (21:43)
[2017-03-18] MEDS: CARBIDOPA/LEVODOPA 25 MG/100 MG TAB PO SCH ×7 (00:07→23:58)
[2017-03-18] MEDS ORDERED: GABAPENTIN 300 MG CAP PO SCH (06:00)
[2017-03-18] MEDS: METHOCARBAMOL 750 MG TAB PO SCH (09:37)
[2017-03-18] MEDS: TAMSULOSIN HCL 0.4 MG CAP PO SCH (09:37)
[2017-03-18] MEDS: SENNOSIDES 1 TAB PO SCH ×2 (09:37→22:02)
[2017-03-18] MEDS: NON-FORMULARY NEW DRUG (Mirabegron [Myrbetriq] 50 MG) PO SCH (09:42)
[2017-03-18] MEDS: GABAPENTIN 100 MG CAP PO SCH ×2 (12:27→17:41)
--- NOTE | 2017-03-18 18:12 | SOAPPROG ---
SOAP Progress Note Assessment/Plan: Assessment: 61-year-old man with Parkinson disease and Lewy body dementia, who has had a decline in function over approximately a month with numerous falls until eventually he was too debilitated for his fiancee to take care of him. Found to have rhabdomyolysis, resolved with hydration, now on IPR for impairments in mobility and self care, and cognition. * Debility following functional decline and falls. Initial FIM 59 on 03/09/17; improved to 68 on 03/16/17. Bed mobility variable supervision to min A if he has freezing episode. Walked 300' 4WW. Frequent cues especially to perform ADLs while managing 4WW; does not retain strategies. Continue physical therapy and occupational therapy to optimize mobility and activities of daily living. * Lewy body dementia. No decline noted off rivastigmine. Moderate to severe deficits to memory, attention, problem solving, executive function, speed of processing. Needs task segmentation and cuing to complete. Continue CASING MACHINE OPERATOR. Likely no role for memantine per UpToDate review. * Parkinson disease. Continue Sinemet. * Urinary incontinence. Much improved with d/c of rivastigmine and Q 2 hr toileting overnight. Reduce fluids after dinner. Goal to extend overnight toileting towards Q 4 hr.. Urology note from 03/2016 reviewed: was prescribed tamsulosin and mirabegron; cystoscopy showed trabeculated bladder and mild prostatic hypertrophy. Had incontinence overnight 03/09/17. Doxazosin 1 mg po QHS started 03/06/17. Change to tamsulosin 0.4 mg QD on 03/09/17. Continue mirabegron, HS desmopressin. * Foot cramps. No electrolyte abnormalities on labs 03/13/17. Improved with methocarbamol at HS. Trial of D/C tonight 03/18/17. * Shoulder pain, radicular? On gabapentin. * Constipation. Responding to bowel program with senna and polyethylene glycol scheduled. Bisacodyl suppository is available on an as-needed basis. * Unclear etiology of multiple falls, though progressive Lewy body dementia with retropulsion may well explain it. Non-orthostatic sitting to standing 03/09; recheck orthostatics supine to standing. * Prophylaxis. He has been prescribed enoxaparin 40 mg subcutaneous daily for deep venous thrombosis prophylaxis. Mobility is much improved; discontinued enoxaparin 03/10/17. There is no indication for gastrointestinal prophylaxis, as he does not appear to be an elevated risk for gastric ulcers. Prognosis for independent function without fall/safety risk is poor; will likely need 24 hour supervision. retail analytics manager to investigate further re finances. Has Medicaid. Discharge planned to home with mami. Tentative discharge date 03/23/17. 03/18/17 18:09 Subjective: No complaints. Vague re events of the day. Shoulder pain and foot cramps improved. Denies lightheadedness when standing. Objective: Vital Signs Temp Pulse Resp BP Pulse Ox 36.5 C 72 17 147/90 H 94 03/18/17 06:19 03/18/17 06:19 03/18/17 06:19 03/18/17 06:19 03/18/17 06:19 Laboratory Results 03/13/17 06:00 03/17/17 03/18/17 03/19/17 05:59 05:59 05:59 Intake Total 2288 1115 354 Output Total 1175 1000 300 Balance 1113 115 54 Physical Exam - Physical Exam General Appearance: WD/WN, alert, no apparent distress Respiratory: normal breath sounds, No crackles, No rales, No wheezing Cardiac/Chest: regular rate, rhythm, No edema Skin: normal color, warm/dry Neuro/Psych: no motor/sensory deficits, alert, normal mood/affect ICD10 Worksheet Patient Problems: Problems Problem Status Onset Urinary retention Acute Dementia without behavioral disturbance Acute Parkinson disease Acute Rhabdomyolysis Acute Weakness Acute
[2017-03-18] MEDS: POLYETHYLENE GLYCOL 3350 17 GM PKT PO SCH (22:03)
[2017-03-18] MEDS: ACETAMINOPHEN 325 MG TAB PO PRN (22:10)
[2017-03-19] MEDS: DESMOPRESSIN 10 MCG/0.1 ML 5ML NASAL SPRAY EACHNARE SCH ×2 (00:08→20:54)
[2017-03-19] MEDS: CARBIDOPA/LEVODOPA 25 MG/100 MG TAB PO SCH ×5 (03:54→20:55)
[2017-03-19] MEDS: ACETAMINOPHEN 325 MG TAB PO PRN ×2 (07:44→20:55)
[2017-03-19] MEDS: SENNOSIDES 1 TAB PO SCH ×2 (07:46→20:55)
[2017-03-19] MEDS ORDERED: GABAPENTIN 300 MG CAP PO SCH (08:00)
--- NOTE | 2017-03-19 08:38 | SOAPPROG ---
SOAP Progress Note Assessment/Plan: Assessment/Plan: 61-year-old man with Parkinson disease and Lewy body dementia, who has had a decline in function over approximately a month with numerous falls until eventually he was too debilitated for his fiancee to take care of him. Found to have rhabdomyolysis, resolved with hydration, now on IPR for impairments in mobility and self care, and cognition. 03/19/2017- LEFT shoulder pain (similar to right) most bothersome in the morning , about 0400. OK with gabapentin dose at 300 mg added at HS. Instructed to work with PT on posture and shoulder strengthening as well. Neurologically stable. * Debility following functional decline and falls. Initial FIM 59 on 03/09/17; improved to 68 on 03/16/17. Bed mobility variable supervision to min A if he has freezing episode. Walked 300' 4WW. Frequent cues especially to perform ADLs while managing 4WW; does not retain strategies. Continue physical therapy and occupational therapy to optimize mobility and activities of daily living. * Lewy body dementia. No decline noted off rivastigmine. Moderate to severe deficits to memory, attention, problem solving, executive function, speed of processing. Needs task segmentation and cuing to complete. Continue DIGITAL ACCOUNT SUPERVISOR. Likely no role for memantine per UpToDate review. * Parkinson disease. Continue Sinemet. * Urinary incontinence. Much improved with d/c of rivastigmine and Q 2 hr toileting overnight. Reduce fluids after dinner. Goal to extend overnight toileting towards Q 4 hr.. Urology note from 03/2016 reviewed: was prescribed tamsulosin and mirabegron; cystoscopy showed trabeculated bladder and mild prostatic hypertrophy. Had incontinence overnight 03/09/17. Doxazosin 1 mg po QHS started 03/06/17. Change to tamsulosin 0.4 mg QD on 03/09/17. Continue mirabegron, HS desmopressin. * Foot cramps. No electrolyte abnormalities on labs 03/13/17. Improved with methocarbamol at HS. Trial of D/C tonight 03/18/17. * Shoulder pain, radicular? On gabapentin 300, 100, 100, 300. * Constipation. Responding to bowel program with senna and polyethylene glycol scheduled. Bisacodyl suppository is available on an as-needed basis. * Unclear etiology of multiple falls, though progressive Lewy body dementia with retropulsion may well explain it. Non-orthostatic sitting to standing 03/09; recheck orthostatics supine to standing. * Prophylaxis. He has been prescribed enoxaparin 40 mg subcutaneous daily for deep venous thrombosis prophylaxis. Mobility is much improved; discontinued enoxaparin 03/10/17. There is no indication for gastrointestinal prophylaxis, as he does not appear to be an elevated risk for gastric ulcers. Prognosis for independent function without fall/safety risk is poor; will likely need 24 hour supervision. home care manager rn to investigate further re finances. Has Medicaid. Discharge planned to home with mami. Tentative discharge date 03/23/17. 03/17/17 09:33 03/19/17 08:38 03/19/17 10:27 03/19/17 10:35 Subjective: CC: Shoulder pain No acute events overnight. Pt notes that he has worsened shoulder pain on the LEFT (previously knew about the right side), which is similar, also helped by the gabapentin, but on the LEFT is most bothersome in the morning around 4 AM. He is open to increasing the gabapentin dose and working with PT on posture and strengthening about the shoulder. No dyspnea, chest pain, numbness, tingling or weakness. Objective: Vital Signs Temp Pulse Resp BP Pulse Ox 36.8 C 73 16 129/81 H 98 03/19/17 07:38 03/19/17 07:38 03/19/17 07:38 03/19/17 07:38 03/19/17 07:38 Laboratory Results 03/13/17 06:00 03/18/17 03/19/17 03/20/17 05:59 05:59 05:59 Intake Total 1115 690 Output Total 1000 1075 Balance 115 -385 Physical Exam - Physical Exam General Appearance: alert, no apparent distress EENT: No scleral icterus (R), No scleral icterus (L) Respiratory: No respiratory distress, No accessory muscle use Cardiac/Chest: normal peripheral pulses, regular rate, rhythm Back: Normal inspection Skin: normal color, warm/dry Extremities: other (tenderness in posterior left shoulder, tentative ROM. Normal sensation and pulses. ) Neuro/Psych: alert, normal mood/affect ICD10 Worksheet Patient Problems: Problems Problem Status Onset Shoulder pain, bilateral Acute Urinary retention Acute Dementia without behavioral disturbance Acute Parkinson disease Acute Rhabdomyolysis Acute Weakness Acute - ICD10 Problem Qualifiers (1) Urinary retention (2) Shoulder pain, bilateral Qualifiers: Chronicity: C
[2017-03-19] MEDS: TAMSULOSIN HCL 0.4 MG CAP PO SCH (09:07)
[2017-03-19] MEDS: NON-FORMULARY NEW DRUG (Mirabegron [Myrbetriq] 50 MG) PO SCH (09:10)
[2017-03-19] MEDS: GABAPENTIN 100 MG CAP PO SCH ×2 (12:06→17:27)
[2017-03-19] MEDS: POLYETHYLENE GLYCOL 3350 17 GM PKT PO SCH (20:54)
[2017-03-19] MEDS: GABAPENTIN 300 MG CAP PO SCH (20:55)
[2017-03-20] MEDS: CARBIDOPA/LEVODOPA 25 MG/100 MG TAB PO SCH ×7 (05:30→23:52)
[2017-03-20] MEDS: SENNOSIDES 1 TAB PO SCH ×2 (08:39→21:24)
[2017-03-20] MEDS: TAMSULOSIN HCL 0.4 MG CAP PO SCH (08:39)
[2017-03-20] MEDS: GABAPENTIN 300 MG CAP PO SCH ×2 (08:39→21:24)
[2017-03-20] MEDS: NON-FORMULARY NEW DRUG (Mirabegron [Myrbetriq] 50 MG) PO SCH (08:42)
[2017-03-20] MEDS: GABAPENTIN 100 MG CAP PO SCH ×2 (11:35→17:18)
--- NOTE | 2017-03-20 15:35 | SOAPPROG ---
SOAP Progress Note Assessment/Plan: Assessment: 61-year-old man with Parkinson disease and Lewy body dementia, who has had a decline in function over approximately a month with numerous falls until eventually he was too debilitated for his fiancee to take care of him. Found to have rhabdomyolysis, resolved with hydration, now on IPR for impairments in mobility and self care, and cognition. * Debility following functional decline and falls. Initial FIM 59 on 03/09/17; improved to 68 on 03/16/17. Bed mobility variable supervision to min A if he has freezing episode. Walked 300' 4WW. Frequent cues especially to perform ADLs while managing 4WW; does not retain strategies. Continue physical therapy and occupational therapy to optimize mobility and activities of daily living. * Lewy body dementia. No decline noted off rivastigmine. Moderate to severe deficits to memory, attention, problem solving, executive function, speed of processing. Needs task segmentation and cuing to complete. Continue WASHCOAT WIPER. Likely no role for memantine per UpToDate review. * Parkinson disease. Continue Sinemet. * Urinary incontinence. Much improved with d/c of rivastigmine and Q 2 hr toileting overnight; change to Q 3 hr to allow fewer interruptions of sleep. Reduce fluids after dinner. Goal to extend overnight toileting towards Q 4 hr.. Urology note from 03/2016 reviewed: was prescribed tamsulosin and mirabegron; cystoscopy showed trabeculated bladder and mild prostatic hypertrophy. Had incontinence overnight 03/09/17. Doxazosin 1 mg po QHS started 03/06/17. Change to tamsulosin 0.4 mg QD on 03/09/17. Continue mirabegron, HS desmopressin. * L shoulder pain, radicular? Improved with gabapentin. * Foot cramps. No electrolyte abnormalities on labs 03/13/17. Improved with methocarbamol at HS. D/C'd 03/18/17 w/out recurrence. * Shoulder pain, radicular? On gabapentin. * Constipation. Responding to bowel program with senna and polyethylene glycol scheduled. Bisacodyl suppository is available on an as-needed basis. * Unclear etiology of multiple falls, though progressive Lewy body dementia with retropulsion may well explain it. Was markedly orthostatic on one determination, not orthostatic subsequently. No symptoms. * Prophylaxis. He has been prescribed enoxaparin 40 mg subcutaneous daily for deep venous thrombosis prophylaxis. Mobility is much improved; discontinued enoxaparin 03/10/17. There is no indication for gastrointestinal prophylaxis, as he does not appear to be an elevated risk for gastric ulcers. Prognosis for independent function without fall/safety risk is poor; will likely need 24 hour supervision. manager qa to investigate further re finances. Has Medicaid. Discharge planned to home with nancyjojoe. Tentative discharge date 03/23/17. 03/20/17 15:30 Subjective: No complaints. Sleeping well. Not aware of any hallucinations. No lightheadedness. Objective: Vital Signs Temp Pulse Resp BP Pulse Ox 36.9 C 58 L 14 139/83 H 95 03/20/17 06:26 03/20/17 06:26 03/20/17 06:26 03/20/17 06:26 03/20/17 06:26 Laboratory Results 03/13/17 06:00 03/19/17 03/20/17 03/21/17 05:59 05:59 05:59 Intake Total 690 2085 454 Output Total 1075 875 Balance -385 1210 454 Physical Exam - Physical Exam General Appearance: WD/WN, alert, no apparent distress Respiratory: No respiratory distress, No accessory muscle use Skin: normal color, warm/dry Neuro/Psych: alert, normal mood/affect, other (Flexed posture. Ambulating in wick with PT, narrow base, slow pace, 4WW.) ICD10 Worksheet Patient Problems: Problems Problem Status Onset Shoulder pain, bilateral Acute Urinary retention Acute Dementia without behavioral disturbance Acute Parkinson disease Acute Rhabdomyolysis Acute Weakness Acute
[2017-03-20] MEDS: DESMOPRESSIN 10 MCG/0.1 ML 5ML NASAL SPRAY EACHNARE SCH (21:24)
[2017-03-20] MEDS: POLYETHYLENE GLYCOL 3350 17 GM PKT PO SCH (21:24)
[2017-03-21] MEDS: CARBIDOPA/LEVODOPA 25 MG/100 MG TAB PO SCH ×6 (03:32→23:58)
[2017-03-21] MEDS: GABAPENTIN 300 MG CAP PO SCH ×2 (08:44→21:40)
[2017-03-21] MEDS: ACETAMINOPHEN 325 MG TAB PO PRN (09:49)
[2017-03-21] MEDS: SENNOSIDES 1 TAB PO SCH ×2 (09:49→21:40)
[2017-03-21] MEDS: TAMSULOSIN HCL 0.4 MG CAP PO SCH (09:50)
[2017-03-21] MEDS: NON-FORMULARY NEW DRUG (Mirabegron [Myrbetriq] 50 MG) PO SCH (09:56)
[2017-03-21] MEDS: GABAPENTIN 100 MG CAP PO SCH ×2 (12:40→16:58)
--- NOTE | 2017-03-21 15:40 | SOAPPROG ---
SOAP Progress Note Assessment/Plan: 61-year-old man with Parkinson disease and Lewy body dementia, who has had a decline in function over approximately a month with numerous falls until eventually he was too debilitated for his fiancee to take care of him. Found to have rhabdomyolysis, resolved with hydration, now on IPR for impairments in mobility and self care, and cognition. * Debility following functional decline and falls. Initial FIM 59 on 03/09/17; improved to 68 on 03/16/17. Bed mobility variable supervision to min A if he has freezing episode. Walked 300' 4WW. Frequent cues especially to perform ADLs while managing 4WW; does not retain strategies. Continue physical therapy and occupational therapy to optimize mobility and activities of daily living. * Lewy body dementia. No decline noted off rivastigmine. Moderate to severe deficits to memory, attention, problem solving, executive function, speed of processing. Needs task segmentation and cuing to complete. 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 Likely no role for memantine per UpToDate review. * Parkinson disease. Continue Sinemet. * Urinary incontinence. Much improved with d/c of rivastigmine and Q 2 hr toileting overnight; change to Q 3 hr to allow fewer interruptions of sleep. Reduce fluids after dinner. Goal to extend overnight toileting towards Q 4 hr.. Urology note from 03/2016 reviewed: was prescribed tamsulosin and mirabegron; cystoscopy showed trabeculated bladder and mild prostatic hypertrophy. Had incontinence overnight 03/09/17. Doxazosin 1 mg po QHS started 03/06/17. Change to tamsulosin 0.4 mg QD on 03/09/17. Continue mirabegron, HS desmopressin. * L shoulder pain, radicular? Improved with gabapentin. * Foot cramps. No electrolyte abnormalities on labs 03/13/17. Improved with methocarbamol at HS. D/C'd 03/18/17 w/out recurrence. * Shoulder pain, radicular? On gabapentin. * Constipation. Responding to bowel program with senna and polyethylene glycol scheduled. Bisacodyl suppository is available on an as-needed basis. * Unclear etiology of multiple falls, though progressive Lewy body dementia with retropulsion may well explain it. Was markedly orthostatic on one determination, not orthostatic subsequently. No symptoms. * Prophylaxis. He has been prescribed enoxaparin 40 mg subcutaneous daily for deep venous thrombosis prophylaxis. Mobility is much improved; discontinued enoxaparin 03/10/17. There is no indication for gastrointestinal prophylaxis, as he does not appear to be an elevated risk for gastric ulcers. Prognosis for independent function without fall/safety risk is poor; will likely need 24 hour supervision. continuity manager to investigate further re finances. Has Medicaid. Discharge planned to home with nancyvasile. Tentative discharge date 03/23/17. Subjective: No acute events. No complaints. Denies hallucination/orthostasis. Objective: Vital Signs Temp Pulse Resp BP Pulse Ox 36.4 C 57 L 16 128/81 H 97 03/21/17 06:43 03/21/17 06:43 03/21/17 06:43 03/21/17 06:43 03/21/17 06:43 Laboratory Results 03/13/17 06:00 03/20/17 03/21/17 03/22/17 05:59 05:59 05:59 Intake Total 2085 991 590 Output Total 875 1125 250 Balance 1210 -134 340 - Pending Discharge Pending Discharge Within 24 Hours: No Pending Discharge Within 48 Hours: Yes Pending Discharge Date: 03/23/17 Pending Discharge Time: 11:00 Physical Exam - Physical Exam General Appearance: alert, no apparent distress Neck: supple Respiratory: lungs clear, normal breath sounds Cardiac/Chest: regular rate, rhythm Abdomen: non-tender, soft Skin: normal color, warm/dry Extremities: No pedal edema Neuro/Psych: alert, normal mood/affect, No speech abnormalities ICD10 Worksheet Patient Problems: Problems Problem Status Onset Shoulder pain, bilateral Acute Urinary retention Acute Dementia without behavioral disturbance Acute Parkinson disease Acute Rhabdomyolysis Acute Weakness Acute
[2017-03-21] MEDS: POLYETHYLENE GLYCOL 3350 17 GM PKT PO SCH (19:57)
[2017-03-21] MEDS: DESMOPRESSIN 10 MCG/0.1 ML 5ML NASAL SPRAY EACHNARE SCH (21:41)
[2017-03-22] MEDS: CARBIDOPA/LEVODOPA 25 MG/100 MG TAB PO SCH ×6 (04:20→23:20)
[2017-03-22] MEDS: GABAPENTIN 300 MG CAP PO SCH ×2 (07:51→21:05)
[2017-03-22] MEDS: SENNOSIDES 1 TAB PO SCH ×2 (07:51→21:05)
[2017-03-22 08:57] VITALS: RESP 16
[2017-03-22] MEDS: TAMSULOSIN HCL 0.4 MG CAP PO SCH (09:00)
[2017-03-22] MEDS: NON-FORMULARY NEW DRUG (Mirabegron [Myrbetriq] 50 MG) PO SCH (10:00)
[2017-03-22] MEDS: GABAPENTIN 100 MG CAP PO SCH ×2 (12:18→17:40)
--- NOTE | 2017-03-22 15:34 | SOAPPROG ---
SOAP Progress Note Assessment/Plan: 61-year-old man with Parkinson disease and Lewy body dementia, who has had a decline in function over approximately a month with numerous falls until eventually he was too debilitated for his fiancee to take care of him. Found to have rhabdomyolysis, resolved with hydration, now on IPR for impairments in mobility and self care, and cognition. * Debility following functional decline and falls. Initial FIM 59 on 03/09/17; improved to 68 on 03/16/17. Bed mobility variable supervision to min A if he has freezing episode. Walked 300' 4WW. Frequent cues especially to perform ADLs while managing 4WW; does not retain strategies. Continue physical therapy and occupational therapy to optimize mobility and activities of daily living. * Lewy body dementia. No decline noted off rivastigmine. Moderate to severe deficits to memory, attention, problem solving, executive function, speed of processing. Needs task segmentation and cuing to complete. Continue FILM WASHER. Likely no role for memantine per UpToDate review. * Parkinson disease. Continue Sinemet. * Urinary incontinence. Much improved with d/c of rivastigmine and Q 2 hr toileting overnight; change to Q 3 hr to allow fewer interruptions of sleep. Reduce fluids after dinner. Goal to extend overnight toileting towards Q 4 hr.. Urology note from 03/2016 reviewed: was prescribed tamsulosin and mirabegron; cystoscopy showed trabeculated bladder and mild prostatic hypertrophy. Had incontinence overnight 03/09/17. Doxazosin 1 mg po QHS started 03/06/17. Change to tamsulosin 0.4 mg QD on 03/09/17. Continue mirabegron, HS desmopressin. * L shoulder pain, radicular? Improved with gabapentin. * Foot cramps. No electrolyte abnormalities on labs 03/13/17. Improved with methocarbamol at HS. D/C'd 03/18/17 w/out recurrence. * Shoulder pain, radicular? On gabapentin. * Constipation. Responding to bowel program with senna and polyethylene glycol scheduled. Bisacodyl suppository is available on an as-needed basis. * Unclear etiology of multiple falls, though progressive Lewy body dementia with retropulsion may well explain it. Was markedly orthostatic on one determination, not orthostatic subsequently. No symptoms. * Prophylaxis. He has been prescribed enoxaparin 40 mg subcutaneous daily for deep venous thrombosis prophylaxis. Mobility is much improved; discontinued enoxaparin 03/10/17. There is no indication for gastrointestinal prophylaxis, as he does not appear to be an elevated risk for gastric ulcers. Prognosis for independent function without fall/safety risk is poor; will likely need 24 hour supervision. creative project manager to investigate further re finances. Has Medicaid. Discharge planned to home with mami. Tentative discharge date 03/23/17. Subjective: No events, no complaints today. Eager for discharge tomorrow. Objective: Vital Signs Temp Pulse Resp BP Pulse Ox 36.4 C 61 16 122/78 H 98 03/22/17 08:00 03/22/17 08:00 03/22/17 08:00 03/22/17 08:00 03/22/17 08:00 Laboratory Results 03/13/17 06:00 03/21/17 03/22/17 03/23/17 05:59 05:59 05:59 Intake Total 991 890 236 Output Total 1125 1700 300 Balance -134 -810 -64 - Pending Discharge Pending Discharge Within 24 Hours: Yes Pending Discharge Within 48 Hours: Yes Pending Discharge Date: 03/23/17 Pending Discharge Time: 11:00 Physical Exam - Physical Exam General Appearance: alert, no apparent distress Neck: supple Respiratory: lungs clear, normal breath sounds Cardiac/Chest: regular rate, rhythm Abdomen: normal bowel sounds, non-tender, soft Skin: normal color, warm/dry Extremities: No pedal edema Neuro/Psych: alert, normal mood/affect, oriented x 3, No speech abnormalities ICD10 Worksheet Patient Problems: Problems Problem Status Onset Shoulder pain, bilateral Acute Urinary retention Acute Dementia without behavioral disturbance Acute Parkinson disease Acute Rhabdomyolysis Acute Weakness Acute
[2017-03-22] MEDS: POLYETHYLENE GLYCOL 3350 17 GM PKT PO SCH (21:05)
[2017-03-22] MEDS: DESMOPRESSIN 10 MCG/0.1 ML 5ML NASAL SPRAY EACHNARE SCH (21:07)
[2017-03-22] MEDS: ACETAMINOPHEN 325 MG TAB PO PRN (23:20)
[2017-03-23] MEDS: CARBIDOPA/LEVODOPA 25 MG/100 MG TAB PO SCH ×4 (05:06→16:00)
[2017-03-23 05:08] VITALS: BP 125/70; PULSE 57; TEMP 97.5; O2SAT 94
[2017-03-23] MEDS: SENNOSIDES 1 TAB PO SCH (08:52)
[2017-03-23] MEDS: GABAPENTIN 300 MG CAP PO SCH (08:52)
[2017-03-23] MEDS: TAMSULOSIN HCL 0.4 MG CAP PO SCH (08:53)
[2017-03-23] MEDS: NON-FORMULARY NEW DRUG (Mirabegron [Myrbetriq] 50 MG) PO SCH (08:59)
[2017-03-23] MEDS: GABAPENTIN 100 MG CAP PO SCH (13:51)
--- NOTE | 2017-03-24 07:19 | GDS ---
[f rep st] DISCHARGE SUMMARY ADMITTING DIAGNOSES: 1. Debility with functional decline. 2. Progressive Lewy body dementia. DISCHARGE DIAGNOSES: 1. Debility with functional decline. 2. Progressive Lewy body dementia. 3. Urinary incontinence. CONSULTATIONS: None. PROCEDURE: None. COMPLICATIONS: None. HISTORY AND HOSPITAL COURSE: The patient was admitted from [facility]. He came to [facility] with a several week course of decline in function including weakness, confusion, and falls. The night before his discharge, he had massive urinary incontinence, and his fiancee could no longer take care of him. In the hospital , he was found to have an elevated creatinine kinase consistent with rhabdomyolysis. A head CT ruled out any intracranial pathology. He was hydrated, and his renal function improved and the myalgias also improved. He was considered stable for rehabilitation. He had gradual steady progress in rehabilitation. His functional independence measure initially was 59 on 03/09/2017. It improved to 68 on 03/16/2017 and to 74 on 03/23/2017. While this is considerable improvement, a FIM of 74 is still consistent with fdc level of care. He had walked more than 300 feet with a 4 wheeled walker, but he would occasionally catch his foot or scissor his feet when turning or distracted. Mostly he needed cuing for mobility and activities of daily living but at times he needed standby to contact guard assist. Regarding urinary incontinence, he was continued on outpatient medications of mirabegron and tamsulosin. Bladder scanning was done, and he was not retaining urine. He had frequent incontinence overnight. Rivastigmine was discontinued due to its procholinergic effect on the bladder, and desmopressin was brought in by his fiancee. When desmopressin was begun, he still had episodes of urinary incontinence overnight until rivastigmine was discontinued. Then his urinary incontinence improved. Additionally, he was initially being toileted every 2 hours at night. Several days before discharge, this frequency was reduced to every 3 hours, and he did not have incontinence overnight. He would stand up at the bedside with a handheld urinal to urinate at night, and then he was able to get back to sleep. Lewy body dementia: He was continued on a low dose of Sinemet. Rivastigmine had originally been begun to treat hallucinations. There was no increase in hallucinations noted. He still would see people in the room at times that were not there, and when he looked out the window, he saw bears and horses which were not there. However, these were not distressing to him. There was no decline in cognitive function noted. Regarding cognition, he was noted to have moderate to severe deficits in memory , attention, problem solving, executive functioning, and speed of processing. He needed task segmentation and cuing to complete any complex tasks that required more than a single step. He had constipation. He was placed on a bowel program with senna and polyethylene glycol, and he had normalization of his bowel pattern. He was noted to be markedly orthostatic on 1 occasion, on other occasions, it was not orthostatic. It was unclear whether orthostasis is contributing to the falls that he had had. LABORATORY DATA: During his stay, serum chemistry was run on 03/13/2017. It showed normal renal function and electrolytes. He had urinalyses x2 on 2016 and 03/13/2017 seeking an etiology for his urinary incontinence, and those were completely within normal limits. PHYSICAL EXAMINATION: On the day of discharge: VITAL SIGNS: Blood pressure is 125/70, heart rate is 57, respiratory rate 16, oxygen saturation is 94% on room air, temperature is 36.4 degrees centigrade. GENERAL: This is a well- nourished, well-developed man sitting in chair and ambulating the hallway with a walker, cooperative and in no acute distress. HEART: There is a regular rate and rhythm with no murmurs, rubs, or gallops. LUNGS: Clear to auscultation bilaterally. ABDOMEN: Soft, nontender, nondistended with normoactive active bowel sounds. EXTREMITIES: There is no cyanosis, clubbing, or edema. NEUROLOGIC: He is alert and oriented x3. Today he knew was the day that he was to be discharged though cognitively he did not understand the process of discharge and got up on his own and began walking down the wick intending to leave before he was stopped by the speech therapist. He has no focal weakness. Sensation intact to light touch. Gait is overall within normal limits using a front-wheeled walker for safety. Staffing meeting was held today with care coordination between Case Management, Nursing, Speech Therapy, Physical Therapy, and Occupational Therapy. The staffing meeting was 15 minutes. Subsequently, there was a 30 minute family meeting held with Mr. Grubbs and his fiancee to discuss his care needs upon discharge. Recommendation is for 24 hour care and consider group home facility. The need for close supervision was emphasized to his mami. CONDITION UPON DISCHARGE: Good. ACTIVITY: Ad saturnino but he needs supervision and sometimes standby to contact guard assist with all mobility related activities of daily living. DIET: Regular. DATE OF NEXT APPOINTMENT: He is to follow up with his movement Disorder neural neurologist. Brent current at the [facility] on 04/07/2017 at 9 a.m. He is to follow up with his primary care provider, Riddhi Berumen MD, on 03/24/2017 at 2:45 p.m. MEDICATIONS AT DISCHARGE: 1. Acetaminophen 650 mg p.o. q.4 hours p.r.n. 2. Desmopressin 1 spray q.h.s. 3. Gabapentin 100 mg p.o. b.i.d. at noon and 1800. 4. Gabapentin 300 mg p.o. b.i.d. at 8 in the morning and 2100. 5. Senna 1 tab p.o. twice daily. 6. Artificial Tears each eye q.i.d. p.r.n. 7. Tamsulosin 0.4 mg p.o. q. day. 8. Sinemet 25/100 one tab q.4 hours. 9. Polyethylene glycol 17 g q. day p.r.n. 10. Mirabegron 50 mg p.o. q. day. ISSUES TO BE ADDRESSED AT FOLLOWUP: 1. Mobility and activities of daily living. We will continue physical therapies at home, and he can follow up with Dr. Berumen as well as Dr. Merino regarding medication management, safety, and continuation of these therapies. 2. Cognitive impairment with Lewy body dementia. He will continue to have speech and language pathology in the home and again can follow up with primary care as well as his neurologist. 3. Urinary incontinence. His fijojoe was advised to consider extending further the time between toileting at night to 4 hours and to see if he can maintain continence on that schedule and continue the mirabegron as well as the tamsulosin. 4. Shoulder pain, possibly radicular in nature. Gabapentin was begun and titrated with relief of his pain. Copy requested to: Dr. Brent Merino [facility], [place] Greater than 35 minutes floor time today, including family and staffing meetings , care coordination, and preparation of discharge orders. /[id number]/MODL MTDD
--- NOTE | 2017-03-26 15:41 | PDOREHIP ---
Admission [facility] - Admission - 3 Day Assessment Period Admission Date/Day 1: 03/05/17 Day 2: 03/06/17 Day 3: 03/07/17 Discharge [facility] - Discharge - 3 Day Assessment Period 2 Days Prior to Anticipated Discharge Date: 03/21/17 1 Day Prior to Anticipated Discharge Date: 03/22/17 Anticipated Discharge Date: 03/23/17 - Discharge Skin Conditions Unhealed Pressure Ulcer (1 or more/Stage 1 or >)-Discharge: 0. No (Late entry for 03/23/17)
== END 2017-03-23 16:45 | disposition home health service (06) | DRG 946 ==
LOC: BREH 15:08
PROVIDERS: ADMIT Internal Medicine; ATTEND Internal Medicine
PROC: F07M3ZZ Motor Function Treatment of Musculoskeletal System - Whole Body (ICD-10-PCS; principal; 2017-03-05)
PROC: F0636ZZ Communicative/Cognitive Integration Skills Treatment of Neurological System - Whole Body (ICD-10-PCS; principal; 2017-03-05)
DX: R53.81 Other malaise (principal); G31.83 Neurocognitive disorder with Lewy bodies; F02.80 Dementia in other diseases classified elsewhere, unspecified severity, without behavioral disturbance, psychotic disturbance, mood disturbance, and anxiety; K59.00 Constipation, unspecified; N40.1 Benign prostatic hyperplasia with lower urinary tract symptoms; R33.9 Retention of urine, unspecified; N32.81 Overactive bladder; M25.511 Pain in right shoulder; Z91.81 History of falling
CPT/HCPCS: 92507-GN; 92522-GN; 92610-GN; 97110-GO; 97110-GP; 97112-GP; 97116-GP; 97140-GO; 97140-GP; 97162-GP; 97166-GO; 97530-GO; 97530-GP; 97535-GO; 97542-GP; 99366-GO; J1650

== ENCOUNTER 2017-03-27 11:25 | Inpatient (IN) | payer MEDICAID ==
--- NOTE | 2017-03-27 11:40 | CPEKG ---
Heart Rate: 72 RR Interval: 833 P-R Interval: 152 QRSD Interval: 98 QT Interval: 368 QTC Interval: 403 P [place]: 33 QRS [place]: -55 T Wave [place]: -12 EKG Severity - ABNORMAL ECG - EKG Impression: SINUS RHYTHM EKG Impression: LEFT ANTERIOR FASCICULAR BLOCK EKG Impression: BORDERLINE T ABNORMALITIES, INFERIOR LEADS Electronically Signed By: Tracey Soriano 27-Mar-2017 15:28:27
--- NOTE | 2017-03-27 12:01 | EDPHY ---
H & P Time Seen by Provider: 03/27/17 11:53 HPI/ROS: CHIEF COMPLAINT: Hypotension. HISTORY OF PRESENT ILLNESS: The patient is a 61-year-old male with a history of dementia and Parkinson's Disease who presents with low blood pressure. His home health care nurse visited him this morning and felt that his blood pressure was significantly lower than usual. He admits ongoing weakness that began when he was discharged from the hospital March 02. He usually walks with a walker. He feels somewhat unstable using his walker now and feels like he might fall. He denies associated symptoms. No fever, cough, cold, recent sickness, chest pain, shortness of breath. He denies recent falls. REVIEW OF SYSTEMS: A complete 10-point review of systems was performed and is negative except for those items mentioned in the HPI. Past Medical/Surgical History: Parkinson's Disease, appendectomy, dementia. Social History: Lives with . Smoking Status: Former smoker Physical Exam: General Appearance: Alert, pleasant Eyes: Pupils equal and round, no conjunctival pallor or injection ENT, Mouth: Mucous membranes moist Neck: Normal inspection Respiratory: Lungs are clear to auscultation Cardiovascular: Regular rate and rhythm Gastrointestinal: Abdomen is soft and non-tender Neurological: A&O, nonfocal exam Skin: Warm and dry, no rash Extremities: Nontender, no pedal edema Psychiatric: Mood and affect normal Constitutional: Initial Vital Signs Temperature (C) 37 C 03/27/17 11:25 Heart Rate 72 03/27/17 11:25 Respiratory Rate 18 03/27/17 11:25 Blood Pressure 84/59 L 03/27/17 11:25 O2 Sat (%) 96 03/27/17 11:25 O2 Delivery Mode Room Air Allergies/Adverse Reactions: No Known Allergies Allergy (Verified 03/02/17 14:44) Home Medications: Medication Instructions Recorded Polyethylene Glycol 3350 [Miralax 17 gm PO DAILY PRN #0 pkt 03/05/17 17 gm (*)] Desmopressin (Nonrefrigerated) 10 mcg [place] HS #1 btl 03/20/17 [Desmopressin 10 Mcg/0.1 ml [place]] Gabapentin [Neurontin 100 MG (*)] 100 mg PO BID@1200,1800 #60 cap 03/20/17 Gabapentin [Neurontin 300 MG (*)] 300 mg PO BID@08,21 #30 cap 03/20/17 Mirabegron [Myrbetriq] 50 mg PO DAILY #30 tab.er.24h 03/20/17 Sennosides [Senokot] 1 tab PO BID #0 tab 03/20/17 Sodium Chloride 2% [Matthew-128 2%] 2 drops EACHEYE QID PRN #0 opht.btl 03/20/17 Tamsulosin HCl [Flomax 0.4 MG (*)] 0.4 mg PO DAILY #30 cap 03/20/17 Acetaminophen [Tylenol 325mg (*)] 650 mg PO Q4 PRN 03/27/17 Carbidopa/Levodopa 25/100Mg 1 tab PO 00,04,08,12,16,20 03/27/17 [Sinemet 25/100 MG (*)] Medical Decision Making - Diagnostics EKG Interpretation: EKG interpreted by me reveals normal sinus rhythm. Left anterior fascicular block. Interpretation: abnormal EKG Imaging Results: Chest x-ray independently reviewed by me reveals no acute disease. ED Course/Re-evaluation: 61-year-old male presents from home with hypotension. He usually runs around 125 /80 but is 83/58 on presentation today. An IV was established and labs ordered. EKG, chest x-ray ordered. 1L IV saline administered. Repeat blood pressure is 96/p. He continues to have generalized weakness. I interpreted the patient's chest x-ray on the PACS system. My interpretation: no acute cardiopulmonary disease. See Imaging Results section for official radiologist report. 1330: The etiology of this patient's hypotension is unclear. There is no evidence of acute coronary syndrome, dysrhythmia, sepsis or GI bleed causing his symptoms. Given his generalized weakness, he will need to be admitted for further evaluation. Consulted with Jessica Patel, hospitalist. She accepts admission for Dr. Rodriges. Differential Diagnosis: Differential diagnosis includes though not limited to acute GI bleed, severe dehydration, dysrhythmia, acute coronary syndrome, pulmonary embolism, septic shock. - Data Points Laboratory Results: Laboratory Results 03/28/17 05:21 03/28/17 05:21 03/28/17 03/28/17 05:21 05:21 WBC 6.07 10^3/uL 10^3/uL (3.80-9.50) RBC 4.21 10^6/uL L 10^6/uL (4.40-6.38) Hgb 12.8 g/dL L g/dL (13.7-17.5) Hct 39.2 % L % (40.0-51.0) MCV 93.1 fL fL (81.5-99.8) MCH 30.4 pg pg (27.9-34.1) MCHC 32.7 g/dL g/dL (32.4-36.7) RDW 12.9 % % (11.5-15.2) Plt Count 176 10^3/uL 10^3/uL (150-400) MPV 9.9 fL fL (8.7-11.7) Neut % (Auto) 52.8 % % (39.3-74.2) Lymph % (Auto) 33.6 % % (15.0-45.0) [place] % (Auto) 9.4 % % (4.5-13.0) Eos % (Auto) 3.1 % % (0.6-7.6) Baso % (Auto) 0.8 % % (0.3-1.7) Nucleat RBC Rel Count 0.0 % % (0.0-0.2) Absolute Neuts (auto) 3.20 10^3/uL 10^3/uL (1.70-6.50) Absolute Lymphs (auto) 2.04 10^3/uL 10^3/uL (1.00-3.00) Absolute Monos (auto) 0.57 10^3/uL 10^3/uL (0.30-0.80) Absolute Eos (auto) 0.19 10^3/uL 10^3/uL (0.03-0.40) Absolute Basos (auto) 0.05 10^3/uL 10^3/uL (0.02-0.10) Absolute Nucleated RBC 0.00 10^3/uL 10^3/uL (0-0.01) Immature Gran % 0.3 % % (0.0-1.1) Immature Gran # 0.02 10^3/uL 10^3/uL (0.00-0.10) Sodium 139 mEq/L mEq/L (134-144) Potassium 4.3 mEq/L mEq/L (3.5-5.2) Chloride 109 mEq/L mEq/L (97-110) Carbon Dioxide 23 mEq/l mEq/l (22-31) Anion Gap 7 mEq/L L mEq/L (8-16) BUN 20 mg/dL mg/dL (7-23) Creatinine 0.9 mg/dL mg/dL (0.7-1.3) Estimated GFR > 60 Glucose 93 mg/dL mg/dL (70-100) Calcium 8.7 mg/dL mg/dL (8.5-10.4) Medications Given: Discontinued Medications Carbidopa/Levodopa (Sinemet) 1 tab PO ONCE ONE Stop: 03/27/17 17:31 Last Admin: 03/27/17 17:30 Dose: 1 tab Sodium Chloride (Ns) 1,000 mls @ 0 mls/hr IV ONCE ONE PRN Reason: Wide Open Stop: 03/27/17 12:04 Last Admin: 03/27/17 12:00 Dose: 1,000 mls Sodium Chloride (Ns) 1,000 mls @ 100 mls/hr IV CONT JUAN R Stop: 09/23/17 15:59 Last Admin: 03/28/17 03:28 Dose: 1,000 mls Departure - Departure Disposition: [facility] Inpatient Acute Clinical Impression: Weakness Hypotension Qualifiers: Hypotension type: unspecified hypotension type Qualified Code(s): I95.9 - Hypotension, unspecified Condition: Fair Report Scribed for: Tracey Soriano Report Scribed by: Timothy Eckert Date of Report: 03/27/17 Time of Report: 11:53 Physician Review and Approval Statement: 03/27/17 11:53 Portions of this note were transcribed by a medical operations supervisor. I personally performed a history, physical exam, medical decision making, and confirmed accuracy of information the transcribed note.
[2017-03-27] MEDS ORDERED: NS 1,000 ML IV ONE (12:03)
[2017-03-27 13:06] LABS: % IMMATURE GRANULYOCYTES 0.3 % (0.0-1.1); ABSOLUTE IMMATURE GRANULOCYTES 0.02 10^3/uL (0.00-0.10); ADD DIFF? NO; ADD MORPH? NO; ADD SCAN? NO; ATYPICAL LYMPHOCYTE FLAG 0 (0-99); FRAGMENT RBC FLAG 0 (0-99); HEMATOCRIT 44.7 % (40.0-51.0); LEFT SHIFT FLG 0 (0-99); LIPEMIA HEMOLYSIS FLAG 80 (0-99); MEAN CELL HEMOGLOBIN 30.5 pg (27.9-34.1); MEAN CELL HEMOGLOBIN CONCENTR. 33.6 g/dL (32.4-36.7); MEAN CELL VOLUME 90.9 fL (81.5-99.8); MEAN PLATELET VOLUME 10.2 fL (8.7-11.7); PLATELET CLUMPS FLAG 0 (0-99); PLATELET COUNT 219 10^3/uL (150-400); RED BLOOD CELL COUNT 4.92 10^6/uL (4.40-6.38); RED CELL DISTRIBUTION WIDTH 12.7 % (11.5-15.2)
[2017-03-27 13:19] LABS: ANION GAP 11 mEq/L (8-16); CALCIUM 9.5 mg/dL (8.5-10.4); CARBON DIOXIDE 25 mEq/l (22-31); CHLORIDE 104 mEq/L (97-110); GLOMERULAR FILTRATION RATE > 60; GLUCOSE 107 mg/dL (70-100); SODIUM 140 mEq/L (134-144)
[2017-03-27 13:31] LABS: TROPONIN I < 0.012 ng/mL (0-0.034)
[2017-03-27] MEDS ORDERED: POLYETHYLENE GLYCOL 3350 17 GM PKT PO PRN ×2 (15:57→15:59)
[2017-03-27] MEDS ORDERED: ACETAMINOPHEN 325 MG TAB PO PRN (15:57)
[2017-03-27] MEDS ORDERED: BISACODYL 10 MG SUPP PR PRN (15:57)
[2017-03-27] MEDS ORDERED: ONDANSETRON DISINTEGRATING 4 MG TAB PO PRN (15:57)
[2017-03-27] MEDS ORDERED: ONDANSETRON 4 MG/2 ML VIAL IVP PRN (15:57)
[2017-03-27] MEDS ORDERED: LACTULOSE 20 GM/30 ML UDCUP PO PRN (15:57)
[2017-03-27] MEDS ORDERED: MAGNESIUM HYDROXIDE 30 ML UDCUP PO PRN (15:57)
[2017-03-27] MEDS ORDERED: SODIUM CHLORIDE 2% EACHEYE PRN (15:59)
--- NOTE | 2017-03-27 16:35 | GHP ---
[f rep st] HISTORY AND PHYSICAL DATE OF ADMISSION: 03/27/2017 CHIEF COMPLAINT: Weakness. HISTORY: This is a 61-year-old man, with past medical history of advanced Parkinson disease as well as Lewy body dementia, who presents with complaints of generalized weakness and lightheadedness. T he patient was recently discharged from inpatient rehab on 03/23, following a hospital stay here in February for similar symptoms. He did return home despite recommendations [facility]. He is living at home with his fiancee. He had been having issues with urinary incontin ence, and the patient's fiancee notes that she was limiting his access to fluids in order to avoid f urther incontinent issues. The patient himself just notes that he has had more weakness than usual along with some tingling in his upper and lower extremities and lightheadedness. He has had no sync ope. He has had no fall. He notes that his urinary issues have improved. PAST MEDICAL HISTORY: Includes. 1. Parkinson disease/advanced. 2. Lewy body dementia. 3. Urinary incontinence. 4. Prior issue with rhabdomyolysis. SOCIAL HISTORY: The patient is currently engaged. He has 6 children from a previous . He is a nonsmoker, nondrinker. He uses a walker to ambulate. FAMILY HISTORY: Noncontributory. REVIEW OF SYSTEMS: A 10-point review of systems obtained, negative except as per HPI. HOME MEDICATIONS: Include: 1. Tylenol. 2. MiraLAX. 3. Mirabegron. 4. Sodium chloride eyedrops. 5. Sinemet. 6. Senna. 7. Gabapentin. 8. Flomax. 9. Desmopressin. ALLERGIES: No known drug allergies. PHYSICAL EXAM: VITAL SIGNS: BP 105/68; was as low as 84/59, heart rate 71, respiratory rate 18, O2 sats 94% on room air, temperature is 36.5. GENERAL APPEARANCE: This is a well-developed, well-nou rished man. He is somnolent, but awake. EYES: Anicteric. HENT: Oropharynx clear, moist mucous m embranes. CARDIOVASCULAR: RRR, no MRG. PULMONARY: CTA bilaterally to anterior exam, shallow alejandro th. ABDOMEN: Obese, soft, nontender. EXTREMITIES: No clubbing, cyanosis, or edema. SKIN: Warm, dry, well perfused. NEURO/PSYCH: Patient is oriented and alert. He has generalized weakness, but nothing focal. Sensation is intact. There is evidence of bradykinesia. CLINICAL DATA: A CBC is completely unremarkable. Chemistry remarkable only for glucose of 107. Tr oponins negative. Chest x-ray personally reviewed and interpreted, shows only hypoventilatory changes without any evid ence of pneumonia or effusion. EKG personally reviewed and interpreted, shows sinus rhythm with a l eft anterior fascicular block. ASSESSMENT/PLAN: This is a 61-year-old man with advanced Parkinson disease and Lewy body dementia, presenting with generalized weakness and hypotension. 1. Generalized weakness, likely secondary to hypotension. Part of this likely due to autonomic dys function related to Parkinson disease, also in the setting of fluid restriction. Will provide gentl e IV fluids and monitor overnight. Patient is on several medications that could be contributing inc luding gabapentin and Flomax, though these do not appear to be new medications. 2. Hypotension, in the setting of above. Again, the patient's fiancee notes that she has been rest ricting his access to fluid. His hypotension improved with IV fluids, I suspect it was largely volu me related. He also undoubtedly has some component of autonomic dysfunction in the setting of Parki nson disease. 3. Parkinson disease, is quite advanced. He had issues with recurrent falls in the past. He previ ously had some hallucinations as well. We will continue his usual outpatient medications. It is un clear at this point if his symptoms are directly related to worsening of his Parkinson disease or Pa rkinson's exacerbation versus simply weakness from dehydration. PT/OT to evaluate. 4. Lewy body dementia. This does seem to be at baseline. He is currently oriented and appropriate . He does have some evidence of cognitive dysfunction, though this does not seem to be severe at th is point. 5. Urinary incontinence. Previous issues noted that seem to have improved with timing of urination as well as Flomax and mirabegron. These will be continued. DISPOSITION: Observation status. Suspect he will need less than 48 hours stay for evaluation and m anagement of above. Patient is new to my care. Old records reviewed and summarized as per HPI and past medical history. Care plan reviewed with ER physician, including plans for overnight observation. Care plan also r eviewed with case management. The patient likely should go to SNF, though unclear if he would be wi lling to at this point. /[id number]/MODL
[2017-03-27] MEDS ORDERED: CARBIDOPA/LEVODOPA 25 MG/100 MG TAB PO ONE (17:30)
[2017-03-27] MEDS: GABAPENTIN 100 MG CAP PO SCH (17:31)
[2017-03-27 18:00] LABS: COLOR YELLOW; LEUKOCYTE ESTERASE,URINE NEGATIVE (NEGATIVE); NITRITE,URINE NEGATIVE (NEGATIVE)
[2017-03-27] MEDS: NS 1,000 ML IV SCH (18:00)
[2017-03-27] MEDS: ACETAMINOPHEN 325 MG TAB PO PRN (18:47)
[2017-03-27] MEDS: oxyCODONE IR 5 MG TAB PO PRN (19:23)
[2017-03-27] MEDS ORDERED: CARBIDOPA/LEVODOPA 25 MG/100 MG TAB PO SCH (20:00)
[2017-03-27] MEDS: DESMOPRESSIN 10 MCG/0.1 ML 5ML NASAL SPRAY EACHNARE SCH (20:28)
[2017-03-27] MEDS: SENNOSIDES/DOCUSATE SODIUM TAB PO SCH (20:28)
[2017-03-27] MEDS: GABAPENTIN 300 MG CAP PO SCH (20:28)
[2017-03-27] MEDS: CARBIDOPA/LEVODOPA 25 MG/100 MG TAB PO SCH (20:30)
[2017-03-27] MEDS ORDERED: SENNOSIDES 1 TAB PO SCH (21:00)
[2017-03-28] MEDS: CARBIDOPA/LEVODOPA 25 MG/100 MG TAB PO SCH ×6 (00:25→21:20)
[2017-03-28] MEDS: NS 1,000 ML IV SCH (03:28)
[2017-03-28 05:53] LABS: % IMMATURE GRANULYOCYTES 0.3 % (0.0-1.1); ABSOLUTE IMMATURE GRANULOCYTES 0.02 10^3/uL (0.00-0.10); ADD DIFF? NO; ADD MORPH? NO; ADD SCAN? NO; ATYPICAL LYMPHOCYTE FLAG 0 (0-99); FRAGMENT RBC FLAG 0 (0-99); HEMATOCRIT 39.2 % (40.0-51.0); HEMOGLOBIN 12.8 g/dL (13.7-17.5); LEFT SHIFT FLG 0 (0-99); LIPEMIA HEMOLYSIS FLAG 80 (0-99); MEAN CELL HEMOGLOBIN 30.4 pg (27.9-34.1); MEAN CELL HEMOGLOBIN CONCENTR. 32.7 g/dL (32.4-36.7); MEAN CELL VOLUME 93.1 fL (81.5-99.8); MEAN PLATELET VOLUME 9.9 fL (8.7-11.7); PLATELET CLUMPS FLAG 10 (0-99); PLATELET COUNT 176 10^3/uL (150-400); RED BLOOD CELL COUNT 4.21 10^6/uL (4.40-6.38); RED CELL DISTRIBUTION WIDTH 12.9 % (11.5-15.2)
[2017-03-28 06:04] LABS: ANION GAP 7 mEq/L (8-16); CALCIUM 8.7 mg/dL (8.5-10.4); CARBON DIOXIDE 23 mEq/l (22-31); CHLORIDE 109 mEq/L (97-110); CREATININE 0.9 mg/dL (0.7-1.3); GLOMERULAR FILTRATION RATE > 60; GLUCOSE 93 mg/dL (70-100); POTASSIUM 4.3 mEq/L (3.5-5.2); SODIUM 139 mEq/L (134-144)
[2017-03-28] MEDS: ENOXAPARIN 40 MG/0.4 ML SYR SC SCH (07:48)
[2017-03-28] MEDS: GABAPENTIN 300 MG CAP PO SCH ×2 (07:49→21:20)
[2017-03-28] MEDS: TAMSULOSIN HCL 0.4 MG CAP PO SCH (07:49)
[2017-03-28] MEDS: SENNOSIDES/DOCUSATE SODIUM TAB PO SCH ×2 (07:49→21:20)
[2017-03-28] MEDS: Mirabegron [Myrbetriq] 50 MG PO SCH (07:50)
[2017-03-28] MEDS: GABAPENTIN 100 MG CAP PO SCH ×2 (12:04→18:08)
--- NOTE | 2017-03-28 13:25 | PDCONSULT ---
Supervisor Pig Machine Note: I have been asked to see this patient by Dr. Dahl for hypotension in the setting of idiopathic Parkinson disease with dementia. Consult request received by telephonic request from Dr. Dahl. This patient has a longstanding history of idiopathic PD with dementia currently on Sinemet. Patient is unsure regarding the specifics of his disease course due to his cognitive impairments. His was not at bedside and nursing, DO ALL OPERATOR and myself tried to phone the patient's without success. Therefor, the history is namely obtained from review of the medical record. The patient was admitted last month for dehydration, rhabdomyolysis and worsening overall physical functioning. He was previously maintained on carbidopa/levodopa 25/100 1 tab PO QID, but somewhere along the line (perhaps before admission) he was changed to 2 tabs PO TID. He was hydrated and after a short course of inpatient rehab went home. He was admitted here again yesterday with worsening overall function and found to be hypotensive and dehydrated with elevated BUN/Cr ratio. The specific issue I have been asked to address is if the patient's hypotension may be related to autonomic dysfunction due to his neurodegenerative conditions. He has been getting IVF with improvement in his lab measures and resolution of his hypotension. Patient is unsure if he has been dizzy/lightheaded at home, particularly with orthostatic changes. ROS: Per the HPI, otherwise limited due to patient dementia. ALLERGIES AND MEDS: As reviewed and recorded in the [facility] PFSH: As per the intake H&P by Dr. Rodriges from yesterday EXAM: VS reviewed in EMR GEN: WDWN laying in NAD HEENT: NCAT, sclera anicteric, conjunctiva not injected, no scalp tenderness, oropharynx clear NECK: supple, nontender, no meningismus CV: RRR s1 s2 wo m/r/c/g. Carotid pulses 2+ wo bruit. NEURO: MS: awake, some reduced attention, disoriented. Hypomimetic. Speech nondysarthric. Voice with good volume and prosody. No Language disturbance. Follows commands. Attends to both sides. Memory seems globally impaired on casual conversation. Adequate fund of knowledge. Mood euthymic. CN: pupils 3mm round reactive. Intolerant of fundoscopy. Primary gaze centered with square wave jerks. Limited upgaze, otherwise ocular motility full. Smooth pursuit with saccadic intrusions. Facial sensation preserved. Face symmetric. Palatoglossal movements intact. Shoulder shrug strong. MOTOR: normal bulk. Cogwheeling about elbow and wrist R>L. No adventitial movements. Full power. SENSORY: intact LT/PP throughout and symmetric wo extinction. COORD: no ataxia FN/HS. Ana bradykinetic in BUEs, less so in BLEs. REFLEX: plantars down. No clonus. Absent ankle jerks (activating), rest of DTRs 3-/4. GAIT: deferred to PT safety eval DATA: Labs reviewed in EMR IMPRESSION: // HYPOTENSION - RESOLVED // IDIOPATHIC PD WITH DEMENTIA (OR LBD WITH PARKINSONISM - UNCLEAR TIMELINE OF EVENTS) // DEHYDRATION Patient with dehydration and hypotension in the setting on PD. Looks like his hypotension had been persistent and not provoked by orthostatic changes. Dysautonomia associated with PD tends to manifest as orthostatic hypotension, not persistent hypotension. His BP has improved with IVF. Suspect this is more due to his dehydration. For now, would check orthostatic vitals in house BID and see if he does indeed have any orthostatic changes. He does, he may need to be reduced back to his prior Sinemet dosing of 1 tab q4H to give steadier L-dopa exposure. L-dopa can exacerbate orthostatic hypotension. He should stay well hydrated, liberalize salt intake, increase muscular tone in core and BLEs, and perhaps try thigh- high compression stockings. Would defer any additional supportive medications, such as fludricortisone, midodrine or pyridostigmine, to his outpatient providers after he has tried conservative measures, kept BP log and had adjustment of Sinemet if needed (that is, if he is indeed orthostatic). If he is not orthostatic here, advise he monitor BPs after discharged several times daily, stay well hydrated and followup with his PCP and neurologist.
--- NOTE | 2017-03-28 15:11 | HOSPPROG ---
Hospitalist Progress Note Assessment/Plan: * Parkinson's/Lewy body dementia with hypotension * Maybe element autonomic dysfunction causing hypotension * He was probably a little bit dehydrated * Neurology input is appreciated * No evidence of sepsis * Will continue to watch with monitoring her orthostatic vital signs * history of previous rhabdo * deconditioning with progressive weakness * Was recommended to go to longterm after inpatient rehab * This recommendation is probably not changed Subjective: Has right arm pain with some tingling in his fingers as well as a little bit of deltoid weakness. Objective: Vital Signs Temp Pulse Resp BP Pulse Ox 36.9 C 71 16 149/89 H 92 03/28/17 12:05 03/28/17 12:05 03/28/17 12:05 03/28/17 12:05 03/28/17 12:05 Laboratory Results 03/28/17 05:21 03/28/17 05:21 03/27/17 03/28/17 03/29/17 05:59 05:59 05:59 Intake Total 2510 280 Output Total 900 Balance 1610 280 Discussed with Neurology - Physical Exam Constitutional: no apparent distress, appears nourished, not in pain Eyes: anicteric sclera, EOMI Ears, Nose, Mouth, Throat: moist mucous membranes, hearing normal, ears appear normal Cardiovascular: regular rate and rhythym, no murmur, rub, or gallop Respiratory: no respiratory distress, no rales or rhonchi, clear to auscultation Gastrointestinal: normoactive bowel sounds, soft, non-tender abdomen, no palpable masses Skin: warm Neurologic: AAOx3, other (Some slight weakness in deltoids. Good supervisor plastic sheets strength and biceps strength.) Psychiatric: interacting appropriately, not anxious, not encephalopathic, thought process linear, flat affect ICD10 Worksheet Patient Problems: Problems Problem Status Onset Hypotension Acute Weakness Acute Dementia without behavioral disturbance Acute Parkinson disease Acute Rhabdomyolysis Acute Shoulder pain, bilateral Acute Urinary retention Acute Weakness Acute
[2017-03-28] MEDS: oxyCODONE IR 5 MG TAB PO PRN (21:20)
[2017-03-28] MEDS: ZOLPIDEM TARTRATE 5 MG TAB PO PRN (21:21)
[2017-03-28] MEDS: DESMOPRESSIN 10 MCG/0.1 ML 5ML NASAL SPRAY EACHNARE SCH (21:26)
[2017-03-29] MEDS: CARBIDOPA/LEVODOPA 25 MG/100 MG TAB PO SCH ×6 (00:38→20:04)
[2017-03-29] MEDS: SENNOSIDES/DOCUSATE SODIUM TAB PO SCH ×2 (07:27→20:04)
[2017-03-29] MEDS: GABAPENTIN 300 MG CAP PO SCH ×3 (07:27→22:56)
[2017-03-29] MEDS: TAMSULOSIN HCL 0.4 MG CAP PO SCH (07:27)
[2017-03-29] MEDS: ENOXAPARIN 40 MG/0.4 ML SYR SC SCH (07:27)
[2017-03-29] MEDS: Mirabegron [Myrbetriq] 50 MG PO SCH (07:28)
[2017-03-29] MEDS: GABAPENTIN 100 MG CAP PO SCH (12:00)
--- NOTE | 2017-03-29 13:39 | HOSPPROG ---
Hospitalist Progress Note Assessment/Plan: * Parkinson's/Lewy body dementia with hypotension * Maybe element autonomic dysfunction causing hypotension * He was probably a little bit dehydrated * Neurology input is appreciated * No evidence of sepsis * Orthostatics look okay today * Continue to watch while off IV fluids making sure he is able to keep up with po water intake * right upper extremity and shoulder pain tingling * Due to tenuous functional status at baseline, this pain has been significantly debilitating * Will go ahead with cervical MRI and consider steroid injection * history of previous rhabdo * deconditioning with progressive weakness * Was borderline in terms of being discharged to home versus snf after inpatient rehab stay * I am not sure if inpatient rehab would would reconsider readmission * Seems too debilitated at this point for home Subjective: No further episodes profound weakness. Does have continued shoulder pain. Today it is more subscapular with trigger points but in the past it has been shoulder and radiating tingling to fingers Objective: Vital Signs Temp Pulse Resp BP Pulse Ox 36.8 C 57 L 16 147/89 H 93 03/29/17 12:14 03/29/17 12:14 03/29/17 12:14 03/29/17 12:14 03/29/17 12:14 03/28/17 03/29/17 03/30/17 05:59 05:59 05:59 Intake Total 1385 Output Total 1600 Balance -215 - Time Spent With Patient Time Spent with Patient: greater than 35 minutes (Discussing plan of care with him in his fiancee) Time Spent with Patient: Greater than 35 minutes spent on this patients care, greater than 50% of time spent counseling, educating, and coordinating care regarding the above mentioned plan. - Physical Exam Constitutional: no apparent distress, appears nourished, not in pain Eyes: anicteric sclera, EOMI Ears, Nose, Mouth, Throat: moist mucous membranes, hearing normal Cardiovascular: regular rate and rhythym Respiratory: no respiratory distress, no rales or rhonchi, clear to auscultation Gastrointestinal: normoactive bowel sounds, soft, non-tender abdomen, no palpable masses Skin: warm Neurologic: AAOx3, other (Perhaps some slight weakness of the deltoids) Psychiatric: interacting appropriately, not anxious, not encephalopathic, thought process linear, flat affect ICD10 Worksheet Patient Problems: Problems Problem Status Onset Hypotension Acute Weakness Acute Dementia without behavioral disturbance Acute Parkinson disease Acute Rhabdomyolysis Acute Shoulder pain, bilateral Acute Urinary retention Acute Weakness Acute
[2017-03-29] MEDS: ACETAMINOPHEN 325 MG TAB PO PRN (14:15)
[2017-03-29] MEDS: DESMOPRESSIN 10 MCG/0.1 ML 5ML NASAL SPRAY EACHNARE SCH (20:05)
[2017-03-30] MEDS: CARBIDOPA/LEVODOPA 25 MG/100 MG TAB PO SCH ×6 (00:19→21:23)
[2017-03-30] MEDS: GABAPENTIN 300 MG CAP PO SCH ×3 (08:32→21:24)
[2017-03-30] MEDS: SENNOSIDES/DOCUSATE SODIUM TAB PO SCH ×2 (08:32→21:23)
[2017-03-30] MEDS: TAMSULOSIN HCL 0.4 MG CAP PO SCH (08:32)
[2017-03-30] MEDS: ENOXAPARIN 40 MG/0.4 ML SYR SC SCH (08:39)
[2017-03-30] MEDS: Mirabegron [Myrbetriq] 50 MG PO SCH (11:41)
--- NOTE | 2017-03-30 14:50 | HOSPPROG ---
Hospitalist Progress Note Assessment/Plan: # weakness - wonder if this is due to worsening Parkinson's and dehydration - will ask for another neurology evaluation - cont PT/OT # hypotension - seems d/t hypovolemia; resolved # neck pain/R arm pain - actually better today - MRI reviewed - will hold off on any intervention today - cont gabapentin # Parkinson's/Lewy Body dementia - cont sinemet # urinary incontinence - started on desmopressin at rehab - cont myrbetriq/flomax Subjective: still feels very weak Objective: Vital Signs Temp Pulse Resp BP Pulse Ox 37.0 C 55 L 16 152/94 H 90 L 03/30/17 12:07 03/30/17 12:07 03/30/17 12:07 03/30/17 12:07 03/30/17 12:07 03/29/17 03/30/17 03/31/17 05:59 05:59 05:59 Intake Total 1385 100 Output Total 1600 1150 750 Balance -215 1050 -750 - Physical Exam Constitutional: no apparent distress, appears nourished Cardiovascular: regular rate and rhythym, no murmur, rub, or gallop Respiratory: no respiratory distress, no rales or rhonchi, clear to auscultation Gastrointestinal: normoactive bowel sounds, soft, non-tender abdomen, no palpable masses Neurologic: other (cogwheeling rigidity) ICD10 Worksheet Patient Problems: Problems Problem Status Onset Rhabdomyolysis Acute Weakness Acute Parkinson disease Acute Dementia without behavioral disturbance Acute Urinary retention Acute Shoulder pain, bilateral Acute Hypotension Acute Weakness Acute
--- NOTE | 2017-03-30 17:57 | NEUROPROG ---
Assessment: Note dictated with 35 minutes of total unit time spent today in review and discussion with patient, nurse, provider and Fiancee on the phone. Will follow up more tomorrow. Objective: Vital Signs Temp Pulse Resp BP Pulse Ox 37.0 C 72 18 141/88 H 94 03/30/17 15:59 03/30/17 15:59 03/30/17 15:59 03/30/17 15:59 03/30/17 15:59 03/29/17 03/30/17 03/31/17 05:59 05:59 05:59 Intake Total 1385 100 Output Total 1600 1150 1050 Balance -215 -1050 -1050 Allergies/Adverse Reactions: No Known Allergies Allergy (Verified 03/02/17 14:44)
[2017-03-30] MEDS: ZOLPIDEM TARTRATE 5 MG TAB PO PRN (21:24)
[2017-03-30] MEDS: oxyCODONE IR 5 MG TAB PO PRN (21:24)
[2017-03-30] MEDS: DESMOPRESSIN 10 MCG/0.1 ML 5ML NASAL SPRAY EACHNARE SCH (21:25)
--- NOTE | 2017-03-30 22:04 | GCON ---
[f rep st] CONSULTATION NEUROLOGIC CONSULTATION REFERRING PHYSICIAN: Khari Fontaine MD HISTORY OF PRESENT ILLNESS: The patient is a 61-year-old gentleman who I am asked to see in [facility] consultation regarding his known diagnosis of dementia with Lewy body disease. He actually came to the hospital on March 27 and had been discharged from rehab on March 23 following a hospital stay in February for a similar set of problems. It had been recommended that he go to a snf fac ility, but they chose to try home care with his fiancee helping. There have been challenges with in termittent incontinence and some hypotension and perhaps some dehydration. There have been some sakina llenges with weakness and some extremity paresthesias and lightheadedness. No fall or syncope had b een documented. The patient had been seen previously in our practice by Dr. Garcia who suspected a par kinsonian syndrome and made a referral to the [facility] at the [facility] where the patient was seen by Dr. Merino on November 26. At that time, the assessment was for addison ia with Lewy body and recommendations for monitoring very closely, and the usual course of recommend ations for treatment strategies to try to minimize risk of hallucinations and other complications of drugs. Basically, he had been relatively stable with an illness that has been evolving over the 3-4 years. They have been in touch with Dr. Merino's office intermittently including prior to the recent hospitalization. He feels fairly good today. He denies hallucinations. He has had imaging on March 29 of the cervical spine, which showed minimal degenerative changes overall with a very smal l area of possible syrinx at the level of the dens. The C5-C6 level shows moderate foraminal and ce ntral canal stenosis and similar at the C6-C7 level. In the hospitalist's note from yesterday, he w as being monitored after my partner had seen him, Dr. Tate for neurologic consultation. It was v danielle unclear where he would wind up in a snf facility or trying to get back home or inpat ient rehab. There has been a feeling that the dehydration was probably contributing to his challeng es. There have been general recommendations to try and minimize the risk of hypotension by perhaps reducing Sinemet if necessary and using support hose, and then consideration of pharmacologic treatm ents if necessary to keep blood pressure adequately controlled. I was called today by Khari hu MD to do followup on the case for any other input. His incontinence is being treated with Myrb etriq and Flomax. He has been on desmopressin since being on rehab. His current dosing of dopamine is 25/100 mg taken at midnight, 4 a.m., 8 a.m., noon, 4 p.m., and 8 p.m. Overall, it is hard to say for sure how much of a major change has occurred. I think we are going t o face frequent challenges on knowing the precise regimen of medicine, which is best and will always face the challenge of what environment he is best to live in. He obviously does not want to be in a snf facility, but it is not clear if his fiancee with home care can adequately manage his case, and she is requesting if he can go back to rehab again if at all possible. Obviously, jovanny t would be ideal, though I am not sure he can qualify for another rehab stay after having just compl eted that. Currently, the patient is alert. He is fully oriented except needed to be reminded of the day of . He is asking logical questions and not hallucinating or delusional. He expresses insight a bout the challenges that are present and does not want to burden his fiancee, but says she has been very supportive for him. I will continue to monitor his progress, and we will have open discussions about the best setting for ongoing care and see if he qualifies for any more extensive rehab option s. Copy requested to: Brent Merino MD [facility] /[id number]/MODL
[2017-03-31] MEDS: CARBIDOPA/LEVODOPA 25 MG/100 MG TAB PO SCH ×7 (01:28→23:03)
[2017-03-31 05:34] LABS: % IMMATURE GRANULYOCYTES 0.6 % (0.0-1.1); ABSOLUTE IMMATURE GRANULOCYTES 0.05 10^3/uL (0.00-0.10); ADD DIFF? NO; ADD MORPH? NO; ADD SCAN? NO; ATYPICAL LYMPHOCYTE FLAG 0 (0-99); FRAGMENT RBC FLAG 0 (0-99); HEMATOCRIT 38.9 % (40.0-51.0); HEMOGLOBIN 13.5 g/dL (13.7-17.5); LEFT SHIFT FLG 0 (0-99); LIPEMIA HEMOLYSIS FLAG 90 (0-99); MEAN CELL HEMOGLOBIN 30.8 pg (27.9-34.1); MEAN CELL HEMOGLOBIN CONCENTR. 34.7 g/dL (32.4-36.7); MEAN CELL VOLUME 88.6 fL (81.5-99.8); MEAN PLATELET VOLUME 9.6 fL (8.7-11.7); PLATELET CLUMPS FLAG 0 (0-99); PLATELET COUNT 169 10^3/uL (150-400); RED BLOOD CELL COUNT 4.39 10^6/uL (4.40-6.38); RED CELL DISTRIBUTION WIDTH 12.2 % (11.5-15.2)
[2017-03-31 06:10] LABS: ANION GAP 7 mEq/L (8-16); CALCIUM 8.8 mg/dL (8.5-10.4); CARBON DIOXIDE 24 mEq/l (22-31); CHLORIDE 99 mEq/L (97-110); CREATININE 0.9 mg/dL (0.7-1.3); GLOMERULAR FILTRATION RATE > 60; GLUCOSE 76 mg/dL (70-100); POTASSIUM 4.2 mEq/L (3.5-5.2); SODIUM 130 mEq/L (134-144)
--- NOTE | 2017-03-31 08:13 | NEUROPROG ---
Assessment: 2 days total units time was 15 minutes reviewing the plan for discharge and follow-up. From a neurologic standpoint, he is stable and has a movement disorder expert who is managing his case. The patient should have assessment by all of his therapists here in the hospital as well as a rehab evaluation to determine if he is a candidate for further inpatient rehab and then determine the discharge plan that is most practical. I do not recommend making any other changes at this stage. He should follow up with his principle managing neurologist at [facility], Dr. Merino. Subjective: Uri reports that he had a good evening and slept well and was able to eat. He denies hallucinations or delusions and the nurse reports no new problems have arisen. I spoke with him and his was on the speaker phone. They both desire to go to rehab if possible rather than home or custodial facility at this stage. After that, they would hope to go home. Objective: Vital Signs Temp Pulse Resp BP Pulse Ox 36.8 C 57 L 17 129/77 H 91 L 03/31/17 04:19 03/31/17 04:19 03/31/17 04:19 03/31/17 04:19 03/31/17 04:19 Laboratory Results 03/31/17 04:20 03/31/17 04:20 03/30/17 03/31/17 04/01/17 05:59 05:59 05:59 Intake Total 100 750 Output Total 1150 0822 325 Balance -4850 -0039 -325 He is alert and oriented and has mild bradykinesia but no hallucinations or delusional thinking. Allergies/Adverse Reactions: No Known Allergies Allergy (Verified 03/02/17 14:44)
[2017-03-31] MEDS: TAMSULOSIN HCL 0.4 MG CAP PO SCH (09:25)
[2017-03-31] MEDS: ENOXAPARIN 40 MG/0.4 ML SYR SC SCH (09:25)
[2017-03-31] MEDS: GABAPENTIN 300 MG CAP PO SCH ×3 (09:25→21:49)
[2017-03-31] MEDS: SENNOSIDES/DOCUSATE SODIUM TAB PO SCH ×2 (09:26→20:04)
[2017-03-31] MEDS: Mirabegron [Myrbetriq] 50 MG PO SCH (09:31)
--- NOTE | 2017-03-31 12:36 | HOSPPROG ---
Hospitalist Progress Note Assessment/Plan: # weakness - wonder if this is due to worsening Parkinson's and dehydration - no change in treatment per neurology - cont PT/OT # hyponatremia - SIADH? - urine osms pending - will fluid restrict # hypotension - seems d/t hypovolemia; resolved # neck pain/R arm pain - actually better today - MRI reviewed - will hold off on any intervention today - cont gabapentin # Parkinson's/Lewy Body dementia - cont sinemet # urinary incontinence - started on desmopressin at rehab - cont myrbetriq/flomax # dispo - pending; ongoing rehab evals, SNF evals (patient and fiancee do not want SNF), home health evals Subjective: patient and fiancee very frustrated Objective: Vital Signs Temp Pulse Resp BP Pulse Ox 36.9 C 67 18 132/86 H 93 03/31/17 08:18 03/31/17 08:18 03/31/17 08:18 03/31/17 08:18 03/31/17 08:18 Laboratory Results 03/31/17 04:20 03/31/17 04:20 03/30/17 03/31/17 04/01/17 05:59 05:59 05:59 Intake Total 100 750 Output Total 5668 1767 814 Balance -6720 -8229 -974 - Physical Exam Constitutional: no apparent distress, appears nourished ICD10 Worksheet Patient Problems: Problems Problem Status Onset Lewy body dementia Acute Rhabdomyolysis Acute Weakness Acute Parkinson disease Acute Dementia without behavioral disturbance Acute Urinary retention Acute Shoulder pain, bilateral Acute Hypotension Acute Weakness Acute
[2017-03-31] MEDS: DESMOPRESSIN 10 MCG/0.1 ML 5ML NASAL SPRAY EACHNARE SCH (20:07)
[2017-04-01] MEDS: CARBIDOPA/LEVODOPA 25 MG/100 MG TAB PO SCH ×6 (03:59→23:58)
[2017-04-01 05:40] LABS: ANION GAP 9 mEq/L (8-16); CARBON DIOXIDE 24 mEq/l (22-31); CHLORIDE 102 mEq/L (97-110); CREATININE 0.9 mg/dL (0.7-1.3); GLOMERULAR FILTRATION RATE > 60; GLUCOSE 89 mg/dL (70-100); POTASSIUM 4.4 mEq/L (3.5-5.2); SODIUM 135 mEq/L (134-144)
[2017-04-01] MEDS: TAMSULOSIN HCL 0.4 MG CAP PO SCH (09:08)
[2017-04-01] MEDS: ENOXAPARIN 40 MG/0.4 ML SYR SC SCH (09:08)
[2017-04-01] MEDS: SENNOSIDES/DOCUSATE SODIUM TAB PO SCH ×2 (09:09→20:39)
[2017-04-01] MEDS: GABAPENTIN 300 MG CAP PO SCH ×3 (09:09→20:39)
--- NOTE | 2017-04-01 09:16 | NEUROPROG ---
Assessment: 2 days total units time was 15 minutes reviewing the plan for discharge and follow-up. From a neurologic standpoint, he is stable and has a movement disorder expert who is managing his case. The patient should have assessment by all of his therapists here in the hospital as well as a rehab evaluation to determine if he is a candidate for further inpatient rehab and then determine the discharge plan that is most practical. I do not recommend making any other changes at this stage. He should follow up with his principle managing neurologist at [facility], Dr. Merino. 04/01/17: Today I had over 35 minutes of [id number] discussion and review with the patient, nursing, various providers, and patient's fiancee over the telephone regarding his current care and disposition. We decided that the short-term plan will be going to a correction facility for about 1 week in order to give time to set up appropriate home care needs. The patient agrees to this but strongly wants to be sure that he does ultimately get home if at all possible and we all support that. He is not a inpatient rehabilitation candidate due to his relatively high level of functioning right now. Objective: Vital Signs Temp Pulse Resp BP Pulse Ox 36.2 C 68 16 132/79 H 94 04/01/17 07:55 04/01/17 07:55 04/01/17 07:55 04/01/17 07:55 04/01/17 07:55 Laboratory Results 03/31/17 04:20 04/01/17 04:42 03/31/17 04/01/17 04/02/17 05:59 05:59 05:59 Intake Total 750 2330 240 Output Total 2225 2125 300 Balance -1475 205 -60 Allergies/Adverse Reactions: No Known Allergies Allergy (Verified 03/02/17 14:44)
[2017-04-01] MEDS: Mirabegron [Myrbetriq] 50 MG PO SCH (09:19)
--- NOTE | 2017-04-01 17:36 | HOSPPROG ---
Hospitalist Progress Note Assessment/Plan: # weakness - ongoing issue, multifactorial - no change in Parkinson's treatment per neurology - cont PT/OT # hyponatremia - is on desmopressin for nocturnal incontinence - relax fluid restriction - salt tabs, recheck tomorrow # hypotension, ongoing orthostatic hypotension - add salt tabs, liberalize fluid intake # neck pain/R arm pain - actually better today - MRI reviewed - will hold off on any intervention today - cont gabapentin # Parkinson's/Lewy Body dementia - cont sinemet # urinary incontinence - started on desmopressin at rehab - cont myrbetriq/flomax - scheduled voiding Q4 # dispo - will now accept SNF; CM involved Subjective: no dizziness when standing Objective: Vital Signs Temp Pulse Resp BP Pulse Ox 36.2 C 68 16 132/79 H 94 04/01/17 07:55 04/01/17 07:55 04/01/17 07:55 04/01/17 07:55 04/01/17 07:55 Laboratory Results 03/31/17 04:20 04/01/17 04:42 03/31/17 04/01/17 04/02/17 05:59 05:59 05:59 Intake Total 750 2330 640 Output Total 2225 2125 450 Balance -1475 205 190 - Time Spent With Patient Time Spent with Patient: greater than 25 minutes Time Spent with Patient: Greater than 25 minutes spent on this patients care, greater than 50% of time spent counseling, educating, and coordinating care regarding the above mentioned plan. - Physical Exam Constitutional: no apparent distress, appears nourished ICD10 Worksheet Patient Problems: Problems Problem Status Onset Lewy body dementia Acute Rhabdomyolysis Acute Weakness Acute Parkinson disease Acute Dementia without behavioral disturbance Acute Urinary retention Acute Shoulder pain, bilateral Acute Hypotension Acute Weakness Acute
[2017-04-01] MEDS: SODIUM CHLORIDE 1,000 MG TAB PO SCH (18:51)
[2017-04-01] MEDS: DESMOPRESSIN 10 MCG/0.1 ML 5ML NASAL SPRAY EACHNARE SCH (20:38)
[2017-04-01] MEDS: oxyCODONE IR 5 MG TAB PO PRN (23:58)
[2017-04-02] MEDS: CARBIDOPA/LEVODOPA 25 MG/100 MG TAB PO SCH ×5 (04:55→21:27)
[2017-04-02 06:29] LABS: ANION GAP 7 mEq/L (8-16); CALCIUM 9.1 mg/dL (8.5-10.4); CARBON DIOXIDE 25 mEq/l (22-31); CHLORIDE 105 mEq/L (97-110); CREATININE 0.9 mg/dL (0.7-1.3); GLOMERULAR FILTRATION RATE > 60; GLUCOSE 77 mg/dL (70-100); POTASSIUM 4.6 mEq/L (3.5-5.2); SODIUM 137 mEq/L (134-144)
[2017-04-02] MEDS: TAMSULOSIN HCL 0.4 MG CAP PO SCH (09:38)
[2017-04-02] MEDS: ENOXAPARIN 40 MG/0.4 ML SYR SC SCH (09:38)
[2017-04-02] MEDS: GABAPENTIN 300 MG CAP PO SCH ×3 (09:39→21:27)
[2017-04-02] MEDS: SENNOSIDES/DOCUSATE SODIUM TAB PO SCH ×2 (09:39→21:27)
[2017-04-02] MEDS: SODIUM CHLORIDE 1,000 MG TAB PO SCH ×3 (09:39→16:49)
[2017-04-02] MEDS: Mirabegron [Myrbetriq] 50 MG PO SCH (09:40)
[2017-04-02] MEDS: ACETAMINOPHEN 325 MG TAB PO PRN (12:22)
--- NOTE | 2017-04-02 14:52 | HOSPPROG ---
Hospitalist Progress Note Assessment/Plan: # weakness - ongoing issue, multifactorial - no change in Parkinson's treatment per neurology - cont PT/OT # hyponatremia - is on desmopressin for nocturnal incontinence - relax fluid restriction - salt tabs, recheck tomorrow # hypotension, ongoing orthostatic hypotension - add salt tabs, liberalize fluid intake # neck pain/R arm pain - better - will hold off on any intervention today - cont gabapentin # Parkinson's/Lewy Body dementia - cont sinemet # urinary incontinence - started on desmopressin at rehab - cont myrbetriq/flomax - scheduled voiding Q4 # dispo - plan dc home tomorrow; rx written for a hospital bed at home - he will require this as he requires positioning of the body in ways not feasible with an ordinary bed to alleviate pain Subjective: ambulated today Objective: Vital Signs Temp Pulse Resp BP Pulse Ox 36.4 C 60 18 104/63 95 04/02/17 09:05 04/02/17 09:05 04/02/17 09:05 04/02/17 09:05 04/02/17 09:05 Laboratory Results 03/31/17 04:20 04/02/17 05:10 04/01/17 04/02/17 04/03/17 05:59 05:59 05:59 Intake Total 2330 2040 250 Output Total 2125 1700 Balance 205 340 250 - Time Spent With Patient Time Spent with Patient: greater than 35 minutes Time Spent with Patient: Greater than 35 minutes spent on this patients care, greater than 50% of time spent counseling, educating, and coordinating care regarding the above mentioned plan. - Physical Exam Constitutional: no apparent distress, appears nourished ICD10 Worksheet Patient Problems: Problems Problem Status Onset Lewy body dementia Acute Rhabdomyolysis Acute Weakness Acute Parkinson disease Acute Dementia without behavioral disturbance Acute Urinary retention Acute Shoulder pain, bilateral Acute Hypotension Acute Weakness Acute
[2017-04-02] MEDS: DESMOPRESSIN 10 MCG/0.1 ML 5ML NASAL SPRAY EACHNARE SCH (21:27)
[2017-04-02] MEDS: oxyCODONE IR 5 MG TAB PO PRN (22:37)
[2017-04-03] MEDS: CARBIDOPA/LEVODOPA 25 MG/100 MG TAB PO SCH ×5 (00:23→16:01)
[2017-04-03] MEDS: TAMSULOSIN HCL 0.4 MG CAP PO SCH (08:48)
[2017-04-03] MEDS: GABAPENTIN 300 MG CAP PO SCH ×2 (08:48→16:01)
[2017-04-03] MEDS: SODIUM CHLORIDE 1,000 MG TAB PO SCH ×2 (08:48→11:57)
[2017-04-03] MEDS: SENNOSIDES/DOCUSATE SODIUM TAB PO SCH (08:48)
[2017-04-03] MEDS: ENOXAPARIN 40 MG/0.4 ML SYR SC SCH (08:48)
[2017-04-03] MEDS: Mirabegron [Myrbetriq] 50 MG PO SCH (08:58)
[2017-04-03 09:55] VITALS: RESP 16
[2017-04-03] MEDS: ACETAMINOPHEN 325 MG TAB PO PRN (12:00)
--- NOTE | 2017-04-03 13:17 | PDIAF ---
- Diagnosis Diagnosis: Parkinsons Disease Code Status: Full Code - Medication Management Discharge Medications: Medications to Continue on Transfer Polyethylene Glycol 3350 [Miralax 17 gm (*)] 17 gm PO DAILY PRN #0 pkt 03/05/17 [Last Taken Unknown] Desmopressin (Nonrefrigerated) [Desmopressin 10 Mcg/0.1 ml [place]] 10 mcg EACHNARE HS #1 btl 03/20/17 [Last Taken Unknown] Mirabegron [Myrbetriq] 50 mg PO DAILY #30 tab.er.24h 03/20/17 [Last Taken Unknown] Sennosides [Senokot] 1 tab PO BID #0 tab 03/20/17 [Last Taken Unknown] Sodium Chloride 2% [Matthew-128 2%] 2 drops EACHEYE QID PRN #0 opht.btl 03/20/17 [ Last Taken Unknown] Tamsulosin HCl [Flomax 0.4 MG (*)] 0.4 mg PO DAILY #30 cap 03/20/17 [Last Taken Unknown] Acetaminophen [Tylenol 325mg (*)] 650 mg PO Q4 PRN 03/27/17 [Last Taken Unknown] Carbidopa/Levodopa 25/100Mg [Sinemet 25/100 MG (*)] 1 tab PO 00,04,08,12,16,20 03/27/17 [Last Taken Unknown] Gabapentin [Neurontin 300 MG (*)] 300 mg PO TID #90 cap 04/03/17 [Last Taken Unknown] Sodium Chloride [Salt Tablet] 1,000 mg PO TIDMEAL #90 tab 04/03/17 [Last Taken Unknown] oxyCODONE IR [Oxycodone Ir (*)] 5 - 10 mg PO Q3HRS PRN #30 tab 04/03/17 [Last Taken Unknown] Discharge Medications: Refer to the Discharge Home Medication list for PRN reason. - Orders Services needed: Home Care, Registered Nurse, Certified Maturity Checker, Physical Therapy, Occupational Therapy, Speech Language Pathologist Home Care Face to Face: I certify that this patient was under my care and that I had the required [id number] encounter meeting the encounter requirements on the discharge day. My findings support the fact that the patient is homebound as defined in CMS Chapter 7 Medicare Benefits Manual 30.1.1, The condition of the patient is such that there exists a normal inability to leave home and consequently, leaving home would require a considerable and taxing effort. - Follow Up Care Current Providers and Referrals: Patient,NotPresent [Unknown] - As per Instructions
--- NOTE | 2017-04-03 15:10 | GDS ---
[f rep st] DISCHARGE SUMMARY ALL DIAGNOSES: 1. Parkinson disease/Lewy body dementia. 2. Orthostatic hypotension. 3. Hyponatremia. 4. Urinary incontinence. 5. Neck pain and right arm pain. 6. Overall weakness. HOSPITAL COURSE: This is a 61-year-old man with progressive Parkinson's and Lewy body dementia, who was recently admitted here, discharged to [facility]. He was discharged from [facility] on March 23, 2017 to home. He was readmitted here 5 days later. I think the majority of his symptoms are related to progressive Parkinson disease. His weakness seems mostly related to this disorder. Kiarra jamil has been seen by Neurology, as well as physical therapy. Overall we feel that it would be better f or him to be discharged to a penitentiary facility. He and his fiancee have strongly considered t his, however, they are quite adamant that they would like to be discharged home. I have ordered them a hospital bed and all the services that we can provide. He has some orthostatic hypotension. We discussed pharmacologic and non-pharmacologic options. He is actually not very symptomatic with this. He was quite hypotensive on admission, which I think was d ehydration. I started him on salt tabs, both for hyponatremia as well as orthostatic hypotension. He has worked with PT and OT on strategies around this. He has urinary incontinence. He had been started on Flomax, Myrbetriq and desmopressin nocturnally a t rehab. I have continued these. Also recommended scheduled voiding every 4 hours, which we have bee n trying here. He had one episode of hyponatremia, and I think that this was likely due to his desmopressin use. Sa lt tabs should help mitigate this. BILLING: I spent more than 30 minutes on the day of discharge coordinating care. /[id number]/MODL
[2017-04-03 17:00] VITALS: BP 149/86; PULSE 92; TEMP 99; O2SAT 91
== END 2017-04-03 17:24 | disposition home or self-care (01) | DRG 57 ==
LOC: EDUNIT# → INTOOBSV 13:31 → F1N 15:34 → OBSVTOIN 03-28 15:08
PROVIDERS: ADMIT Internal Medicine; ATTEND Internal Medicine
DX: G31.83 Neurocognitive disorder with Lewy bodies (principal); F02.80 Dementia in other diseases classified elsewhere, unspecified severity, without behavioral disturbance, psychotic disturbance, mood disturbance, and anxiety; I95.9 Hypotension, unspecified; E86.0 Dehydration; E87.1 Hypo-osmolality and hyponatremia; R32 Unspecified urinary incontinence; M54.2 Cervicalgia; Z87.891 Personal history of nicotine dependence
CPT/HCPCS: 97110-GP; 97112-GP; 97116-GP; 97161-GP; 97165-GO; 97530-GO; 97530-GP; 97535-GO; G0378; J1650

== ENCOUNTER 2017-04-05 12:47 | Inpatient (IN) | payer MEDICAID ==
--- NOTE | 2017-04-05 13:09 | EDPHY ---
H & P Stated Complaint: poss GI bleed Time Seen by Provider: 04/05/17 13:09 - Personal History Current Tetanus Diphtheria and Acellular Pertussis (TDAP): Unsure - Medical/Surgical History Hx Asthma: No Hx Chronic Respiratory Disease: No Hx Diabetes: No Hx Cardiac Disease: No Hx Renal Disease: Yes Hx Cirrhosis: No Hx Alcoholism: No Hx HIV/AIDS: No Hx Splenectomy or Spleen Trauma: No Other PMH: Parkinsons, urology issues, appy., lewey body dementia - Social History Smoking Status: Former smoker Constitutional: Initial Vital Signs Temperature (C) 37.4 C 04/05/17 12:59 Heart Rate 95 04/05/17 12:59 Respiratory Rate 16 04/05/17 12:59 Blood Pressure 124/84 H 04/05/17 12:59 O2 Sat (%) 96 04/05/17 12:59 O2 Delivery Mode Room Air Allergies/Adverse Reactions: No Known Allergies Allergy (Verified 03/02/17 14:44) Home Medications: Medication Instructions Recorded Desmopressin (Nonrefrigerated) 10 mcg EACHNARE HS #1 btl 03/20/17 [Desmopressin 10 Mcg/0.1 ml [place]] Mirabegron [Myrbetriq] 50 mg PO DAILY #30 tab.er.24h 03/20/17 Acetaminophen [Tylenol 325mg (*)] 650 mg PO Q4 PRN 03/27/17 Carbidopa/Levodopa 25/100Mg 1 tab PO 00,04,08,12,16,20 03/27/17 [Sinemet 25/100 MG (*)] Sodium Chloride [Salt Tablet] 1,000 mg PO TIDMEAL #90 tab 04/03/17 Tamsulosin HCl [Flomax 0.4 MG (*)] 0.4 mg PO DAILY #30 cap 04/03/17 oxyCODONE IR [Oxycodone Ir (*)] 5 - 10 mg PO Q3HRS PRN #30 tab 04/03/17 Docusate Sodium [Colace 100 MG (*)] 100 mg PO BID 04/05/17 Gabapentin [Neurontin 100 MG (*)] 100 mg PO BID@12,18 04/05/17 Gabapentin [Neurontin 300 MG (*)] 300 mg PO BID@08,21 04/05/17 Medical Decision Making ED Course/Re-evaluation: CHIEF COMPLAINT: Possible GI Bleed HISTORY OF PRESENT ILLNESS: This patient is a 61 year old male with history of Parkinson's and Lewy body dementia complaining of rectal bleeding he initially noticed today. He has been recently admitted here for symptoms related to progressive Parkinson's disease and frequent falls. The patient states that he feels he is able to live independently, but discharge summary from 03/28/17 states that nursing facility care was recommended. This recommendation was declined by the patient and his fiance. Today, he had a fully formed bowel movement with associated blood which he describes as "bright red to cranberry juice" in color. He denies fever, diarrhea, abdominal or rectal pain, nausea, vomiting, chills, or other associated symptoms. He denies history of colonoscopy. REVIEW OF SYSTEMS: A 10 point review of systems was performed and is negative with the exception of the elements mentioned in the history of present illness. PHYSICAL EXAM: HR, BP, O2 Sat, RR. Temp noted General Appearance: Flat affect. Alert, well hydrated, appropriate, and non- toxic appearing. Head: Atraumatic without scalp tenderness or obvious injury Eyes: Pupils equal, round, reactive to light and accommodation, EOMI, no trauma , no injection. Nose: Atraumatic, no rhinorrhea, clear. Throat: Mucus membranes moist. Neck: Supple, nontender, no lymphadenopathy. Respiratory: No retractions, no distress, no wheezes, and no accessory muscle use. Lungs are clear to auscultation bilaterally. Cardiovascular: Regular rate and rhythm, no murmurs, rubs, or gallops. Good capillary refill all extremities. Gastrointestinal: Abdomen is soft, nontender, non-distended, no masses, no rebound, no guarding, no peritoneal signs. Musculoskeletal: Normal active ROM of all extremities, atraumatic. Neurological: Alert, appropriate, and interactive. Mask-like face, minimal facial expression. No obvious tremors. Skin: Diaphoretic. No rashes, good turgor, no nodules on palpation. Past medical history: Parkinson's, constipation, neuropathy, overactive bladder Family history: Noncontributory Social history: Engaged. Nonsmoker, nondrinker. DIFFERENTIAL DIAGNOSIS: The differential diagnosis for the patient's lower GI bleeding included but was not limited to hemorrhoids, constipation secondary to Parkinson's, diverticulosis, tumor, AVM, and upper GI Bleed. MEDICAL DECISION MAKING: This patient is a 61 year old male with Parkinson's who presents today following a bowel movement this morning accompanied by bright red blood. He has been admitted recently to the hospital and to [facility]. His discharge summary indicates recommendation for placement in a fpc facility, which was declined by the patient and his fiance. Physical exam unremarkable. EMS reports stool was well-formed with small amounts of bright red blood. This is likely related to hemorrhoid rather than lower GI bleed. Plan to draw labs, admit for symptoms related to progressive Parkinson's. 14:00 Spoke with hospitalist service. Dr. Naik accepts admission for advanced Parkinson's, multiple falls, hemorrhoids, and inability to care for himself. Labs unremarkable. - Data Points Laboratory Results: Laboratory Results 04/05/17 12:45 04/05/17 12:45 04/05/17 04/05/17 04/05/17 12:45 12:45 12:45 WBC 11.72 10^3/uL H 10^3/uL (3.80-9.50) RBC 5.07 10^6/uL 10^6/uL (4.40-6.38) Hgb 15.6 g/dL g/dL (13.7-17.5) Hct 46.1 % % (40.0-51.0) MCV 90.9 fL fL (81.5-99.8) MCH 30.8 pg pg (27.9-34.1) MCHC 33.8 g/dL g/dL (32.4-36.7) RDW 12.9 % % (11.5-15.2) Plt Count 247 10^3/uL 10^3/uL (150-400) MPV 9.7 fL fL (8.7-11.7) Neut % (Auto) 85.0 % H % (39.3-74.2) Lymph % (Auto) 8.6 % L % (15.0-45.0) [place] % (Auto) 5.8 % % (4.5-13.0) Eos % (Auto) 0.1 % L % (0.6-7.6) Baso % (Auto) 0.2 % L % (0.3-1.7) Nucleat RBC Rel Count 0.0 % % (0.0-0.2) Absolute Neuts (auto) 9.96 10^3/uL H 10^3/uL (1.70-6.50) Absolute Lymphs (auto) 1.01 10^3/uL 10^3/uL (1.00-3.00) Absolute Monos (auto) 0.68 10^3/uL 10^3/uL (0.30-0.80) Absolute Eos (auto) 0.01 10^3/uL L 10^3/uL (0.03-0.40) Absolute Basos (auto) 0.02 10^3/uL 10^3/uL (0.02-0.10) Absolute Nucleated RBC 0.00 10^3/uL 10^3/uL (0-0.01) Immature Gran % 0.3 % % (0.0-1.1) Immature Gran # 0.04 10^3/uL 10^3/uL (0.00-0.10) PT 13.7 SEC SEC (12.0-15.0) INR 1.06 (0.83-1.16) APTT 27.4 SEC SEC (23.0-38.0) Sodium 141 mEq/L mEq/L (134-144) Potassium 4.2 mEq/L mEq/L (3.5-5.2) Chloride 102 mEq/L mEq/L (97-110) Carbon Dioxide 25 mEq/l mEq/l (22-31) Anion Gap 14 mEq/L mEq/L (8-16) BUN 26 mg/dL H mg/dL (7-23) Creatinine 1.2 mg/dL mg/dL (0.7-1.3) Estimated GFR > 60 Glucose 82 mg/dL mg/dL (70-100) Calcium 10.2 mg/dL mg/dL (8.5-10.4) Departure - Departure Disposition: [facility] Inpatient Acute Clinical Impression: Rectal bleed, Multiple falls, Parkinsons Hemorrhoid Qualifiers: Hemorrhoid type: unspecified Qualified Code(s): K64.9 - Unspecified hemorrhoids Condition: Fair Report Scribed for: Cortez Gauthier Report Scribed by: Jacy Grayson Date of Report: 04/05/17 Time of Report: 13:11
[2017-04-05 13:31] LABS: % IMMATURE GRANULYOCYTES 0.3 % (0.0-1.1); ABSOLUTE IMMATURE GRANULOCYTES 0.04 10^3/uL (0.00-0.10); ADD DIFF? NO; ADD MORPH? NO; ADD SCAN? NO; ATYPICAL LYMPHOCYTE FLAG 0 (0-99); FRAGMENT RBC FLAG 0 (0-99); HEMATOCRIT 46.1 % (40.0-51.0); HEMOGLOBIN 15.6 g/dL (13.7-17.5); LEFT SHIFT FLG 0 (0-99); LIPEMIA HEMOLYSIS FLAG 90 (0-99); MEAN CELL HEMOGLOBIN 30.8 pg (27.9-34.1); MEAN CELL HEMOGLOBIN CONCENTR. 33.8 g/dL (32.4-36.7); MEAN CELL VOLUME 90.9 fL (81.5-99.8); MEAN PLATELET VOLUME 9.7 fL (8.7-11.7); PLATELET CLUMPS FLAG 30 (0-99); PLATELET COUNT 247 10^3/uL (150-400); RED BLOOD CELL COUNT 5.07 10^6/uL (4.40-6.38); RED CELL DISTRIBUTION WIDTH 12.9 % (11.5-15.2)
[2017-04-05 13:59] LABS: ANION GAP 14 mEq/L (8-16); CALCIUM 10.2 mg/dL (8.5-10.4); CARBON DIOXIDE 25 mEq/l (22-31); CHLORIDE 102 mEq/L (97-110); CREATININE 1.2 mg/dL (0.7-1.3); GLOMERULAR FILTRATION RATE > 60; GLUCOSE 82 mg/dL (70-100); INR 1.06 (0.83-1.16); POTASSIUM 4.2 mEq/L (3.5-5.2); PROTIME(PATIENT) 13.7 SEC (12.0-15.0); SODIUM 141 mEq/L (134-144)
[2017-04-05 14:00] LABS: APTT 27.4 SEC (23.0-38.0)
[2017-04-05] MEDS ORDERED: ONDANSETRON DISINTEGRATING 4 MG TAB PO PRN (14:20)
[2017-04-05] MEDS ORDERED: ONDANSETRON 4 MG/2 ML VIAL IVP PRN (14:20)
[2017-04-05] MEDS ORDERED: oxyCODONE IR 5 MG TAB PO PRN (15:11)
--- NOTE | 2017-04-05 15:56 | GHP ---
[f rep st] HISTORY AND PHYSICAL DATE OF ADMISSION: 04/05/2017 CHIEF COMPLAINT: 1. Weakness. 2. Hematochezia. HISTORY OF PRESENT ILLNESS: The patient is a 61-year-old male with a history of progressive Kitty on/Lewy body dementia, hyponatremia, urinary incontinence, autonomic dysfunction, who was just hospi talized here at [facility] 03/28/2017 through 04/03/2017, with weakness, hyponatremia, and orthostatic hypotension. At that time, he was evaluated by Neurology and Physical Therapy. It was agreed that patient would be discharged to a assisted facility for 7 days, so clyde soriano arrange delivery of a hospital bed and home safety evaluation. Per clyde, this was all to be arranged through [facility]. However, it was rejected on Thursday. So, patient has been at home [facility]. He did well with PT on Thursday, but then was tired. So, last night he was incontinent i n bed, ate dinner without issue. At 2 a.m., clyde awoke and saw blood in his urine. He then fell out of bed, but he does not recall the event, it appears he landed on his knees, as he has abrasion s on both. Denies loss of consciousness. Then, had another urine at 4 a.m. which was clear. This morning, his maxineomero Betancur called paramedics and they helped reposition patient in bed. She recalle d paramedics after he had diarrhea and blood in his stool. The patient denies abdominal pain. They did eat chicken last night, but she is not having any sympt oms of diarrhea. No recent antibiotics. He chronically has sweats and is hot. He denies nausea, v omiting. He has chronic incontinence. He has right shoulder pain consistent with arthritis on rece nt MRI. Patient does have chronic constipation and has a BM every 4-5 days. They just started usin g Colace. REVIEW OF SYSTEMS: I completed a 10-point review of systems, negative except as noted in HPI. PAST MEDICAL HISTORY: 1. Progressive Parkinson/Lewy body dementia. 2. Hyponatremia. 3. Weakness. 4. Urinary incontinence. 5. Autonomic dysfunction. 6. Falls. PAST SURGICAL HISTORY: 1. Lazy eye as a child. 2. Appendectomy. FAMILY HISTORY: No CAD. SOCIAL HISTORY: Lives in [place] with his clyde Betancur. Has 6 kids with a previous . No illi cit drugs or alcohol. ALLERGIES: No known drug allergies. HOME MEDICATIONS: Mirabegron 50 mg daily, gabapentin 100 mg b.i.d., Tylenol as needed, gabapentin 3 00 b.i.d., Sinemet, salt tablets t.i.d. with meals, Colace, Flomax, desmopressin each naris, oxycodo ne 5-10 mg q.3 hours p.r.n. PHYSICAL EXAM: VITAL SIGNS: Temperature 37.4, blood pressure 124/84, heart rate 90s, respirations 16, 96% on room air. GENERAL: The patient appears mildly tired, but in no acute distress, sitting in bed. HEENT: PERRLA. EOMI. Mild injection of right eye. CV: Regular rate and rhythm. No mur murs, gallops, or rubs. LUNGS: Clear to auscultation bilaterally. ABDOMEN: Soft, nontender. [place] el sounds throughout. : No suprapubic or CVA tenderness. MUSCULOSKELETAL: Decreased strength o f lower extremities. Good handgrip bilaterally. NEURO: Cranial nerves II through XII intact. Cog wheeling of upper extremities. Normal sensation to touch. PSYCH: Alert and oriented x3. LABS: WBC 11, hemoglobin 15, hematocrit 46, platelets 247. INR is 1.0, PT is 13. Sodium 141, pota ssium 4.2, chloride 102, carbon dioxide 25, creatinine 1.2. UA is pending. ASSESSMENT AND PLAN: 1. Hematochezia: Acute onset this morning. Differential includes constipation versus bacterial. However, less suspicion as patient does not have abdominal pain, is afebrile, and mildly elevated wh ite count. Will repeat H and H this evening. If has persistent diarrhea, will check a GI panel. H e is currently hemodynamically stable. 2. Progressive Parkinson/Lewy body dementia: The patient was evaluated by Neurology here during hi s last stay. He was also recommended rehab at time of discharge, and to work with therapy. The bartolome hoyos has a followup appointment with his primary neurologist, Dr. Merino at [facility], on Thursday. Will continue his home medications. Clyde is mainly concerned that patient becom es weak at night and she is not able to assist him. I stressed concern that will be at risk for fal ls and further injury and would really consider a SNF for 30 days. Will have PT, OT, as well as rafi e management involved. 3. Urinary incontinence: Will continue his home medications. Check a UA. 4. Falls: Patient does not use a walker or a cane at home. He fell out of bed. Denies loss of co nsciousness or hitting his head. He does have mild abrasions on his knees. 5. Autonomic dysfunction: Secondary to underlying dementia. He is currently hemodynamically stabl e. 6. Hyponatremia: Will continue desmopressin and salt tablets. 7. Right neck pain. There is degenerative disk disease at C5-C6 and C6-C7 on a MRI from 03/29/2017 : Will continue p.r.n. opioids. 8. Diet: Regular. 9. Deep venous thrombosis prophylaxis: SCDs given hematochezia. 10. Patient warrants inpatient admission given falls, which places him at risk for subsequent harm, warrants serial H and H and PT evaluation. /[id number]/MODL
[2017-04-05] MEDS: CARBIDOPA/LEVODOPA 25 MG/100 MG TAB PO SCH ×2 (16:29→21:35)
[2017-04-05 19:17] LABS: HEMATOCRIT 41.9 % (40.0-51.0); HEMOGLOBIN 14.1 g/dL (13.7-17.5)
[2017-04-05] MEDS: DESMOPRESSIN 10 MCG/0.1 ML 5ML NASAL SPRAY EACHNARE SCH (21:35)
[2017-04-05] MEDS: GABAPENTIN 300 MG CAP PO SCH (21:35)
[2017-04-05] MEDS: DOCUSATE SODIUM 100 MG CAP PO SCH (21:35)
[2017-04-05] MEDS: SODIUM CHLORIDE 1,000 MG TAB PO SCH (21:37)
[2017-04-05] MEDS: GABAPENTIN 100 MG CAP PO SCH (21:37)
[2017-04-05 22:30] LABS: COLOR YELLOW; LEUKOCYTE ESTERASE,URINE NEGATIVE (NEGATIVE); NITRITE,URINE NEGATIVE (NEGATIVE)
[2017-04-05 22:42] LABS: MUCUS TRACE /lpf (NONE-1+)
[2017-04-06] MEDS: CARBIDOPA/LEVODOPA 25 MG/100 MG TAB PO SCH ×6 (00:47→20:38)
[2017-04-06 04:38] LABS: HEMOGLOBIN 13.8 g/dL (13.7-17.5); MEAN CELL HEMOGLOBIN 30.4 pg (27.9-34.1); MEAN CELL HEMOGLOBIN CONCENTR. 32.9 g/dL (32.4-36.7); MEAN CELL VOLUME 92.5 fL (81.5-99.8); RED BLOOD CELL COUNT 4.54 10^6/uL (4.40-6.38)
[2017-04-06 04:50] LABS: ANION GAP 7 mEq/L (8-16); CARBON DIOXIDE 23 mEq/l (22-31); CHLORIDE 109 mEq/L (97-110); GLOMERULAR FILTRATION RATE > 60; GLUCOSE 76 mg/dL (70-100); POTASSIUM 4.1 mEq/L (3.5-5.2); SODIUM 139 mEq/L (134-144)
[2017-04-06] MEDS: TAMSULOSIN HCL 0.4 MG CAP PO SCH (08:20)
[2017-04-06] MEDS: SODIUM CHLORIDE 1,000 MG TAB PO SCH ×3 (08:21→17:06)
[2017-04-06] MEDS: GABAPENTIN 300 MG CAP PO SCH ×3 (08:21→20:43)
[2017-04-06] MEDS: DOCUSATE SODIUM 100 MG CAP PO SCH ×3 (08:21→21:02)
[2017-04-06] MEDS ORDERED: Mirabegron [Myrbetriq] 50 MG PO SCH (09:00)
--- NOTE | 2017-04-06 11:05 | HOSPPROG ---
Hospitalist Progress Note Assessment/Plan: 61-year-old male with known Parkinson's and Lewy body disease who was readmitted after an episode of weakness and possible hematuria or hematochezia. Patient is new to me today. -hematuria or hematochezia. Patient gives a history that he grabbed his own penis in order to stop from urinating and may have traumatized his penis. Hemoglobin is now stable. We have no evidence for hematochezia. Today there is no blood at the urethral meatus. He denies dysuria fever or back pain. Hemoglobin is stable. I reviewed the pictures brought by his mami and it shows bright red blood with brown stool in the toilet bowl. Thus I believe this was hematuria, gross hematuria, and not melena. -Parkinson's disease and Lewy body dementia: This appears stable. -hyponatremia -autonomic dysfunction with orthostatic hypotension. This problem places him at a fall risk. Plan: Discussed disposition with case management. It would be best that the gentleman returned to an SNF rather than going home. Apparently prior arrangements were unsuccessful. He is functional during the day but exhibits weakness and probably orthostatic hypotension in the evenings resulting in a fall risk issue. Subjective: Reports no chest pain shortness of breath cough or abdominal pain denies hematuria or hematochezia. Reports that he traumatized his own penis possibly trying to stop urinating in the evening. No family members are available for history. His fijojoe's name is Gypsy Zamarripa Objective: Vital Signs Temp Pulse Resp BP Pulse Ox 36.5 C 65 16 124/79 H 94 04/06/17 08:00 04/06/17 08:00 04/06/17 08:00 04/06/17 08:00 04/06/17 08:00 Laboratory Results 04/06/17 04:08 04/06/17 04:08 04/05/17 04/06/17 04/07/17 05:59 05:59 05:59 Intake Total 2049 Output Total 600 250 Balance 1450 -250 PT 13.7 SEC (12.0-15.0) 04/05/17 12:45 INR 1.06 (0.83-1.16) 04/05/17 12:45 - Time Spent With Patient Time Spent with Patient: greater than 35 minutes Time Spent with Patient: Greater than 35 minutes spent on this patients care, greater than 50% of time spent counseling, educating, and coordinating care regarding the above mentioned plan. - Pending Discharge Pending Discharge Within 24 Hours: No Pending Discharge Within 48 Hours: Yes Pending Discharge Date: 04/08/17 Pending Discharge Time: 11:00 - Physical Exam Constitutional: no apparent distress Eyes: PERRL, anicteric sclera Ears, Nose, Mouth, Throat: moist mucous membranes, hearing normal Cardiovascular: regular rate and rhythym, no murmur, rub, or gallop Respiratory: no respiratory distress, no rales or rhonchi, clear to auscultation Gastrointestinal: normoactive bowel sounds, soft, non-tender abdomen, no palpable masses Genitourinary: no bladder fullness Skin: warm Musculoskeletal: generalized weakness, other (No lateralizing neurologic findings.) Psychiatric: interacting appropriately ICD10 Worksheet Patient Problems: Problems Problem Status Onset Hemorrhoid Acute Rectal bleed Acute Multiple falls Acute Parkinsons Acute Lewy body dementia Acute Rhabdomyolysis Acute Weakness Acute Parkinson disease Acute Dementia without behavioral disturbance Acute Urinary retention Acute Shoulder pain, bilateral Acute Hypotension Acute Weakness Acute
[2017-04-06] MEDS: GABAPENTIN 100 MG CAP PO SCH ×2 (12:32→17:06)
[2017-04-06] MEDS: DESMOPRESSIN 10 MCG/0.1 ML 5ML NASAL SPRAY EACHNARE SCH (20:36)
[2017-04-07] MEDS: CARBIDOPA/LEVODOPA 25 MG/100 MG TAB PO SCH ×7 (00:25→23:38)
[2017-04-07] MEDS: DOCUSATE SODIUM 100 MG CAP PO SCH ×2 (09:41→20:54)
[2017-04-07] MEDS: SODIUM CHLORIDE 1,000 MG TAB PO SCH ×3 (09:41→18:23)
[2017-04-07] MEDS: TAMSULOSIN HCL 0.4 MG CAP PO SCH (09:41)
[2017-04-07] MEDS: GABAPENTIN 300 MG CAP PO SCH ×3 (09:42→20:59)
[2017-04-07] MEDS: Mirabegron [Myrbetriq] 50 MG PO SCH (09:57)
[2017-04-07] MEDS: GABAPENTIN 100 MG CAP PO SCH ×2 (12:05→18:23)
--- NOTE | 2017-04-07 16:00 | HOSPPROG ---
Hospitalist Progress Note Assessment/Plan: 61-year-old male with known Parkinson's and Lewy body disease who was readmitted after an episode of weakness and possible hematuria or hematochezia. since admission we have confirmed that this has been intermittent hematuria likely secondary to trauma to the penis. There has been no hematochezia. -hematuria Patient gives a history that he grabbed his own penis in order to stop from urinating and may have traumatized his penis. Hemoglobin is now stable. We have no evidence for hematochezia. Today there is no blood at the urethral meatus. He denies dysuria fever or back pain. Hemoglobin is stable. I reviewed the pictures brought by his fiancee and it shows bright red blood with brown stool in the toilet bowl. Thus I believe this was hematuria, gross hematuria, and not melena. -Parkinson's disease and Lewy body dementia: This appears stable. His mental status and cognition seems to wax and wane. Today he is less interactive and slower to interact. -hyponatremia: Resolved -autonomic dysfunction with orthostatic hypotension. This problem places him at a fall risk. Plan: Discussed disposition with case management. It would be best that the gentleman returned to an SNF rather than going home. Apparently prior arrangements were unsuccessful. He is functional during the day but exhibits weakness and probably orthostatic hypotension in the evenings resulting in a fall risk issue. today I spoke with are the patient's physician Dr. Merino at the [facility]. Dr. Merino phone number is [phone]. Dr. butcher is managing his motion disorder and has attempted to deal with his nocturia. Adjustments of his medications have been made including the addition of desmopressin. Patient has been taking the desmopressin for 1 month without much relief of his nocturia. Despite that I will continue this medication. Today I also spoke with his fiancee dolores Cabezas. She is a great difficulty managing him at home because he becomes weak at night and has nocturia. He has fallen twice and return to this facility once after a prior admission. She is not getting much sleep at all and he will certainly require more care than she can give him. She is agreed that he should be discharged to an SNF facility for 2-4 weeks. If he improves then he can return home at that time. Time: 50 minutes for the phone calls in interactions and management of his medications. Subjective: His cognition seems slower and less interactive although he is aware and oriented x3. He also seems weaker without complaint of fever chills shortness of breath cough abdominal pain or nausea. Objective: Vital Signs Temp Pulse Resp BP Pulse Ox 37.6 C 110 H 18 136/82 H 91 L 04/07/17 07:23 04/07/17 07:23 04/07/17 07:23 04/07/17 07:23 04/07/17 07:23 Laboratory Results 04/06/17 04:08 04/06/17 04:08 04/06/17 04/07/17 04/08/17 05:59 05:59 05:59 Intake Total 2050 2100 Output Total 600 475 Balance 1450 1625 PT 13.7 SEC (12.0-15.0) 04/05/17 12:45 INR 1.06 (0.83-1.16) 04/05/17 12:45 - Time Spent With Patient Time Spent with Patient: greater than 35 minutes Time Spent with Patient: Greater than 35 minutes spent on this patients care, greater than 50% of time spent counseling, educating, and coordinating care regarding the above mentioned plan. - Pending Discharge Pending Discharge Within 24 Hours: Yes Pending Discharge Date: 04/08/17 Pending Discharge Time: 11:00 - Physical Exam Constitutional: no apparent distress, chronically ill appearing Eyes: PERRL, anicteric sclera Ears, Nose, Mouth, Throat: moist mucous membranes Cardiovascular: regular rate and rhythym, no murmur, rub, or gallop Respiratory: no respiratory distress, no rales or rhonchi, clear to auscultation Gastrointestinal: normoactive bowel sounds, soft, non-tender abdomen Genitourinary: no bladder fullness, other ( No blood is seen at the urethral meatu) Skin: warm Musculoskeletal: generalized weakness Neurologic: AAOx3, CN II-XII Intact, other ( slow mentation) Psychiatric: interacting appropriately, flat affect ICD10 Worksheet Patient Problems: Problems Problem Status Onset Hemorrhoid Acute Rectal bleed Acute Multiple falls Acute Parkinsons Acute Lewy body dementia Acute Rhabdomyolysis Acute Weakness Acute Parkinson disease Acute Dementia without behavioral disturbance Acute Urinary retention Acute Shoulder pain, bilateral Acute Hypotension Acute Weakness Acute
[2017-04-07] MEDS: ACETAMINOPHEN 325 MG TAB PO PRN (16:34)
[2017-04-07 17:29] LABS: % IMMATURE GRANULYOCYTES 0.7 % (0.0-1.1); ABSOLUTE IMMATURE GRANULOCYTES 0.07 10^3/uL (0.00-0.10); ADD DIFF? NO; ADD MORPH? NO; ADD SCAN? NO; ATYPICAL LYMPHOCYTE FLAG 0 (0-99); FRAGMENT RBC FLAG 0 (0-99); HEMATOCRIT 40.6 % (40.0-51.0); HEMOGLOBIN 13.9 g/dL (13.7-17.5); LEFT SHIFT FLG 0 (0-99); LIPEMIA HEMOLYSIS FLAG 90 (0-99); MEAN CELL HEMOGLOBIN 31.2 pg (27.9-34.1); MEAN CELL HEMOGLOBIN CONCENTR. 34.2 g/dL (32.4-36.7); MEAN PLATELET VOLUME 9.7 fL (8.7-11.7); PLATELET CLUMPS FLAG 10 (0-99); PLATELET COUNT 181 10^3/uL (150-400); RED BLOOD CELL COUNT 4.46 10^6/uL (4.40-6.38); RED CELL DISTRIBUTION WIDTH 12.8 % (11.5-15.2)
[2017-04-07] MEDS ORDERED: ERTAPENEM 1 GM in NS 100 ML IV ONE (17:52)
[2017-04-07 18:22] LABS: ALANINE AMINOTRANSFERASE 19 IU/L (21-72); ALBUMIN 3.5 g/dL (3.5-5.0); ALKALINE PHOSPHATASE 45 IU/L (38-126); ANION GAP 7 mEq/L (8-16); ASPARTATE AMINOTRANSFERASE 45 IU/L (17-59); BILIRUBIN,TOTAL 1.2 mg/dL (0.1-1.4); CALCIUM 8.5 mg/dL (8.5-10.4); CARBON DIOXIDE 21 mEq/l (22-31); CHLORIDE 106 mEq/L (97-110); GLOMERULAR FILTRATION RATE > 60; GLUCOSE 100 mg/dL (70-100); POTASSIUM 4.1 mEq/L (3.5-5.2); SODIUM 134 mEq/L (134-144); TOTAL PROTEIN 6.4 g/dL (6.3-8.2)
[2017-04-07] MEDS: DESMOPRESSIN 10 MCG/0.1 ML 5ML NASAL SPRAY EACHNARE SCH (20:54)
[2017-04-07 21:24] LABS: COLOR YELLOW; LEUKOCYTE ESTERASE,URINE TRACE (NEGATIVE); NITRITE,URINE NEGATIVE (NEGATIVE)
[2017-04-07 21:39] LABS: MUCUS 4+ /lpf (NONE-1+); RBC,URINE 25-50 /hpf (0-3); WBC,URINE 25-50 /hpf (0-3)
[2017-04-07] MEDS: NS 1,000 ML IV SCH (23:38)
[2017-04-08] MEDS: ACETAMINOPHEN 325 MG TAB PO PRN ×2 (00:27→12:54)
[2017-04-08] MEDS: CARBIDOPA/LEVODOPA 25 MG/100 MG TAB PO SCH ×5 (04:17→20:45)
[2017-04-08] MEDS: NS 1,000 ML IV SCH ×2 (04:17→20:34)
[2017-04-08] MEDS: SODIUM CHLORIDE 1,000 MG TAB PO SCH ×3 (08:20→19:02)
[2017-04-08] MEDS: DOCUSATE SODIUM 100 MG CAP PO SCH ×2 (08:20→20:34)
[2017-04-08] MEDS: TAMSULOSIN HCL 0.4 MG CAP PO SCH (08:20)
[2017-04-08] MEDS: GABAPENTIN 300 MG CAP PO SCH ×2 (08:20→20:34)
[2017-04-08] MEDS: Mirabegron [Myrbetriq] 50 MG PO SCH (08:21)
[2017-04-08 09:19] LABS: % IMMATURE GRANULYOCYTES 0.4 % (0.0-1.1); ABSOLUTE IMMATURE GRANULOCYTES 0.02 10^3/uL (0.00-0.10); ADD DIFF? NO; ADD MORPH? NO; ADD SCAN? NO; ATYPICAL LYMPHOCYTE FLAG 0 (0-99); FRAGMENT RBC FLAG 0 (0-99); HEMATOCRIT 39.8 % (40.0-51.0); HEMOGLOBIN 13.3 g/dL (13.7-17.5); LEFT SHIFT FLG 0 (0-99); LIPEMIA HEMOLYSIS FLAG 80 (0-99); MEAN CELL HEMOGLOBIN 30.8 pg (27.9-34.1); MEAN CELL HEMOGLOBIN CONCENTR. 33.4 g/dL (32.4-36.7); MEAN CELL VOLUME 92.1 fL (81.5-99.8); MEAN PLATELET VOLUME 9.9 fL (8.7-11.7); PLATELET CLUMPS FLAG 10 (0-99); PLATELET COUNT 162 10^3/uL (150-400); RED BLOOD CELL COUNT 4.32 10^6/uL (4.40-6.38); RED CELL DISTRIBUTION WIDTH 12.9 % (11.5-15.2)
[2017-04-08 09:28] LABS: INR 1.31 (0.83-1.16); PROTIME(PATIENT) 16.3 SEC (12.0-15.0)
[2017-04-08] MEDS ORDERED: IOPAMIDOL (ISOVUE-300) 100 ML BTL ONE (09:36)
[2017-04-08 09:38] LABS: ANION GAP 8 mEq/L (8-16); CALCIUM 8.3 mg/dL (8.5-10.4); CARBON DIOXIDE 21 mEq/l (22-31); CHLORIDE 108 mEq/L (97-110); GLOMERULAR FILTRATION RATE > 60; GLUCOSE 141 mg/dL (70-100); POTASSIUM 3.7 mEq/L (3.5-5.2); SODIUM 137 mEq/L (134-144)
[2017-04-08] MEDS: TEARS/DEXTRAN 70/HYPROMELLOSE 15 ML OPHT.BTL EACHEYE PRN (12:54)
[2017-04-08] MEDS: GABAPENTIN 100 MG CAP PO SCH ×2 (12:54→19:02)
--- NOTE | 2017-04-08 13:35 | PCMIDPN ---
Assessment/Plan: Assessment: entered in error Plan: 04/08/17 13:35 Objective: Vital Signs Temp Pulse Resp BP Pulse Ox 38.7 C H 63 16 147/83 H 92 04/08/17 12:55 04/08/17 12:17 04/08/17 12:17 04/08/17 12:17 04/08/17 12:17 Laboratory Results 04/08/17 09:00 04/08/17 09:00 04/07/17 04/08/17 04/09/17 05:59 05:59 05:59 Intake Total 2100 5050 571 Output Total 475 125 Balance 1625 4921 571 ICD10 Worksheet Patient Problems: Problems Problem Status Onset Hemorrhoid Acute Multiple falls Acute Parkinsons Acute Rectal bleed Acute Dementia without behavioral disturbance Acute Hypotension Acute Lewy body dementia Acute Parkinson disease Acute Rhabdomyolysis Acute Shoulder pain, bilateral Acute Urinary retention Acute Weakness Acute Weakness Acute
--- NOTE | 2017-04-08 14:35 | HOSPPROG ---
Hospitalist Progress Note Assessment/Plan: 61-year-old male with known Parkinson's and Lewy body disease who was readmitted after an episode of weakness and possible hematuria or hematochezia. since admission we have confirmed that this has been intermittent hematuria likely secondary to trauma to the penis. There has been no hematochezia. Last 48 hours the patient has had intermittent fever cultures are pending and he has been placed on Invanz. Had initial leukocytosis which is now resolving. -hematuria: Possible secondary to trauma. CTA of the abdomen and pelvis shows only 1-2 mm stone without signs of obstruction. Bladder shows some thickening but no signs of obstruction again. Urology consultation confirms that there are no urologic findings. If it is penile distal trauma it is intermittent will resolve on its own. Case was discussed with Dr. Jelani Hinton for Urology. -Parkinson's disease and Lewy body dementia: This appears stable. His mental status and cognition seems to wax and wane. Today he is less interactive and slower to interact. This change in cognitive function is likely secondary to his intermittent fevers. There is no signs of meningismus. -hyponatremia: Resolved -autonomic dysfunction with orthostatic hypotension. This problem places him at a fall risk. Plan: Discussed disposition with case management. It would be best that the gentleman returned to an SNF rather than going home. Apparently prior arrangements were unsuccessful. He is functional during the day but exhibits weakness and probably orthostatic hypotension in the evenings resulting in a fall risk issue. today I spoke with are the patient's physician Dr. Merino at the [facility]. Dr. Merino phone number is [phone]. Dr. butcher is managing his motion disorder and has attempted to deal with his nocturia. Adjustments of his medications have been made including the addition of desmopressin. Patient has been taking the desmopressin for 1 month without much relief of his nocturia. Despite that I will continue this medication. Today I also spoke with his fiancee dolores Cabezas. She is a great difficulty managing him at home because he becomes weak at night and has nocturia. He has fallen twice and return to this facility once after a prior admission. She is not getting much sleep at all and he will certainly require more care than she can give him. She is agreed that he should be discharged to an SNF facility for 2-4 weeks. If he improves then he can return home at that time. Disposition: Possible discharge to [facility] on 04/09. Time: 45 minutes with discussion with Dr. Hinton, infectious Disease, and with nursing staff and case management. Subjective: Mentation is slow but he is appropriate. No complaints of chest pain abdominal pain nausea vomiting dysuria frequency or back pain. Objective: Vital Signs Temp Pulse Resp BP Pulse Ox 37.9 C 63 16 147/83 H 92 04/08/17 14:18 04/08/17 12:17 04/08/17 12:17 04/08/17 12:17 04/08/17 12:17 Laboratory Results 04/08/17 09:00 04/08/17 09:00 04/07/17 04/08/17 04/09/17 05:59 05:59 05:59 Intake Total 2100 5050 571 Output Total 475 125 Balance 1625 4925 571 PT 16.3 SEC (12.0-15.0) H 04/08/17 09:00 INR 1.31 (0.83-1.16) H 04/08/17 09:00 - Time Spent With Patient Time Spent with Patient: greater than 35 minutes Time Spent with Patient: Greater than 35 minutes spent on this patients care, greater than 50% of time spent counseling, educating, and coordinating care regarding the above mentioned plan. - Pending Discharge Pending Discharge Within 24 Hours: Yes Pending Discharge Date: 04/09/17 Pending Discharge Time: 11:00 - Physical Exam Constitutional: no apparent distress, chronically ill appearing Eyes: PERRL Cardiovascular: regular rate and rhythym, no murmur, rub, or gallop Respiratory: no respiratory distress, no rales or rhonchi, clear to auscultation Gastrointestinal: normoactive bowel sounds, soft, non-tender abdomen, no palpable masses Genitourinary: other ( Testicle and penis appear normal there are no masses and no signs of blood at the urethral meatus. Rectal exam showed a normal size prostate without lumps or masses or tenderness. No stool was obtained in the rectal vault.) Skin: warm Musculoskeletal: generalized weakness Neurologic: AAOx3, other ( Cognition is very slow but seems appropriate.) Psychiatric: flat affect ICD10 Worksheet Patient Problems: Problems Problem Status Onset Hemorrhoid Acute Rectal bleed Acute Multiple falls Acute Parkinsons Acute Lewy body dementia Acute Rhabdomyolysis Acute Weakness Acute Parkinson disease Acute Dementia without behavioral disturbance Acute Urinary retention Acute Shoulder pain, bilateral Acute Hypotension Acute Weakness Acute
--- NOTE | 2017-04-08 17:44 | CPEKG ---
Heart Rate: 66 RR Interval: 909 P-R Interval: 152 QRSD Interval: 100 QT Interval: 384 QTC Interval: 403 P Weems: 45 QRS Weems: -49 T Wave Weems: -10 EKG Severity - ABNORMAL ECG - EKG Impression: SINUS RHYTHM EKG Impression: LEFT ANTERIOR FASCICULAR BLOCK EKG Impression: BORDERLINE T ABNORMALITIES, INFERIOR LEADS Electronically Signed By: Riddhi Berumen 09-Apr-2017 07:18:32
[2017-04-08 19:48] LABS: % IMMATURE GRANULYOCYTES 0.5 % (0.0-1.1); ABSOLUTE IMMATURE GRANULOCYTES 0.02 10^3/uL (0.00-0.10); ADD DIFF? NO; ADD MORPH? NO; ADD SCAN? YES; ATYPICAL LYMPHOCYTE FLAG 0 (0-99); FRAGMENT RBC FLAG 0 (0-99); HEMATOCRIT 36.1 % (40.0-51.0); HEMOGLOBIN 12.3 g/dL (13.7-17.5); LEFT SHIFT FLG 20 (0-99); LIPEMIA HEMOLYSIS FLAG 90 (0-99); MEAN CELL HEMOGLOBIN CONCENTR. 34.1 g/dL (32.4-36.7); MEAN CELL VOLUME 90.9 fL (81.5-99.8); MEAN PLATELET VOLUME 9.5 fL (8.7-11.7); PLATELET CLUMPS FLAG 0 (0-99); PLATELET COUNT 118 10^3/uL (150-400); RED BLOOD CELL COUNT 3.97 10^6/uL (4.40-6.38); RED CELL DISTRIBUTION WIDTH 12.8 % (11.5-15.2)
[2017-04-08] MEDS ORDERED: NS BOLUS 1000 ML (Wide open) IV ONE (20:00)
[2017-04-08] MEDS: DESMOPRESSIN 10 MCG/0.1 ML 5ML NASAL SPRAY EACHNARE SCH (20:33)
[2017-04-08 20:36] LABS: SCAN NEGATIVE
--- NOTE | 2017-04-08 22:12 | GCON ---
[f rep st] CONSULTATION DATE OF CONSULTATION: 04/08/2017 REFERRING PHYSICIAN: Tom Shelton Jr., MD REASON FOR CONSULTATION: Hematuria, urinary incontinence, fever. HISTORY OF PRESENT ILLNESS: Dr. Shelton asked me to evaluate this 61-year-old male. He has a histo ry of progressive Parkinson/Lewy body dementia, and was recently hospitalized for such at [facility]. Approximately 2 days ago, he apparently had blood in his urine versus in his stoo l. He was brought to the emergency department from [facility], where there was noted to be blood in the commode. Since that time, the urine has been fairly clear, according to the nurse. He is weari ng a diaper and is intermittently incontinent of urine. Apparently, on the previous admission, he w as able to use urinal, and by history, has been getting up at night, which may have resulted in a fa ll. He has been taking tamsulosin 0.4 mg per day. Additionally, he has been febrile intermittently with fevers up to 102. His white count has also been up and down. Urine and blood cultures are cu rrently pending. Renal function was normal on admission. CT scan this morning showed a small nonob structing left lower pole stone and bilateral renal cysts. However, there were no renal masses, no obstruction. The bladder had a slightly thickened wall, and the prostate was enlarged. He had a mo derate volume in his bladder. PAST MEDICAL HISTORY: Positive for the progressive Parkinson/Lewy body dementia, hyponatremia, inco ntinence, falls. PAST SURGICAL HISTORY: Positive for appendectomy. SOCIAL HISTORY: Significant for recent admission at [facility] due to his decline in mental stat us. ALLERGIES: He has no known drug allergies. PHYSICAL EXAMINATION: GENERAL: The patient is not oriented, but he is comfortable and in no acute distress. ABDOMEN: Soft, nontender, and he has no CVA tenderness. : He has a circumcised phall us. There is no bruising noted, and his meatus is unremarkable. He has a diaper, which is saturate d with a clear urine. Bladder scan showed 220 mL residual. IMPRESSION: Hematuria from unclear etiology. There is some question of penile trauma, but this joe ears to be intermittent and is likely from the distal to the external sphincter as his voided urine is grossly clear. There are no other upper tract explanations for his symptoms. I feel that he lik krista has mental status changes due to an infection, probably urinary tract. At this point, I do not see a need for catheterization. I would consider increasing tamsulosin to 0.8 mg a day to see if th is helps him empty his bladder. I will continue to monitor him, although at this juncture I do not feel that acute urologic intervention is indicated. Based on his clinical deterioration, there may be a need for decision making in terms of diapers versus placement of a suprapubic catheter so that it minimizes his tendency to fall when he gets up. /[id number]/MODL
[2017-04-09] MEDS: CARBIDOPA/LEVODOPA 25 MG/100 MG TAB PO SCH ×6 (00:56→20:45)
[2017-04-09] MEDS: ACETAMINOPHEN 325 MG TAB PO PRN (02:36)
[2017-04-09] MEDS: NS 1,000 ML IV SCH (05:50)
[2017-04-09] MEDS: DOCUSATE SODIUM 100 MG CAP PO SCH ×2 (08:55→20:45)
[2017-04-09] MEDS: TAMSULOSIN HCL 0.4 MG CAP PO SCH (08:55)
[2017-04-09] MEDS: SODIUM CHLORIDE 1,000 MG TAB PO SCH ×3 (08:56→18:31)
[2017-04-09] MEDS: GABAPENTIN 300 MG CAP PO SCH ×2 (08:56→20:45)
[2017-04-09] MEDS: Mirabegron [Myrbetriq] 50 MG PO SCH (09:13)
[2017-04-09 09:45] LABS: ADD MORPH? NO; ATYPICAL LYMPHOCYTE FLAG 0 (0-99); FRAGMENT RBC FLAG 0 (0-99); HEMATOCRIT 40.8 % (40.0-51.0); LEFT SHIFT FLG 30 (0-99); LIPEMIA HEMOLYSIS FLAG 90 (0-99); MEAN CELL HEMOGLOBIN 30.4 pg (27.9-34.1); MEAN CELL HEMOGLOBIN CONCENTR. 34.3 g/dL (32.4-36.7); MEAN CELL VOLUME 88.7 fL (81.5-99.8); MEAN PLATELET VOLUME 9.8 fL (8.7-11.7); PLATELET CLUMPS FLAG 0 (0-99); PLATELET COUNT 162 10^3/uL (150-400); RED CELL DISTRIBUTION WIDTH 12.4 % (11.5-15.2)
[2017-04-09 10:00] LABS: ALANINE AMINOTRANSFERASE 55 IU/L (21-72); ALBUMIN 3.4 g/dL (3.5-5.0); ALKALINE PHOSPHATASE 72 IU/L (38-126); ANION GAP 8 mEq/L (8-16); ASPARTATE AMINOTRANSFERASE 44 IU/L (17-59); CALCIUM 8.6 mg/dL (8.5-10.4); CARBON DIOXIDE 21 mEq/l (22-31); CHLORIDE 108 mEq/L (97-110); CREATININE 0.9 mg/dL (0.7-1.3); GLOMERULAR FILTRATION RATE > 60; GLUCOSE 96 mg/dL (70-100); SODIUM 137 mEq/L (134-144); TOTAL PROTEIN 6.2 g/dL (6.3-8.2)
[2017-04-09 10:55] LABS: ADD DIFF? YES; ADD SCAN? NO; SCAN POSITIVE
[2017-04-09 11:06] LABS: LARGE PLATELETS PRESENT; PLATELET ESTIMATE DECREASED (ADEQ)
[2017-04-09] MEDS: GABAPENTIN 100 MG CAP PO SCH ×2 (12:56→18:31)
--- NOTE | 2017-04-09 16:39 | HOSPPROG ---
Hospitalist Progress Note Assessment/Plan: 61-year-old male with known Parkinson's and Lewy body disease who was readmitted after an episode of weakness and possible hematuria or hematochezia. since admission we have confirmed that this has been intermittent hematuria likely secondary to trauma to the penis. There has been no hematochezia. Last 48 hours the patient has had intermittent fever cultures are pending and he has been placed on Invanz initially and then changed to Rocephin. The initial leukocytosis is now resolving slowly. -hematuria: Secondary to penile trauma self induced by the patient. Consult by Urology appreciated. -Parkinson's disease and Lewy body dementia: T mental status waxes and wanes with his fever. Today is more alert and interactive and afebrile. -persistent intermittent fever in the last 72 hours despite the use of antibiotics with negative blood cultures. This is probably viral. An ID consult will be ordered. Will continue Rocephin IV. -hyponatremia: Resolved -autonomic dysfunction with orthostatic hypotension. This problem places him at a fall risk. Plan: Disposition will be to [facility], SNF. If no source of the fever can be found all soon to be viral. His mental status seems. Normal when his temperature is normal. His white count is declining. Disposition on 04/10 to [facility]. Time: 45 minutes with discussion with Dr. Hinton, infectious Disease, and with nursing staff and case management. Plan has been discussed with his mami ID and the nursing staff and case management. Subjective: Interacting and more alert today peak. He is afebrile and without complaints. No cough nasal discharge complain of sore throat or abdominal pain. Objective: Vital Signs Temp Pulse Resp BP Pulse Ox 36.8 C 80 18 136/83 H 97 04/09/17 16:24 04/09/17 16:24 04/09/17 16:24 04/09/17 16:24 04/09/17 16:24 Laboratory Results 04/09/17 09:15 04/09/17 09:15 04/08/17 04/09/17 04/10/17 05:59 05:59 05:59 Intake Total 5050 3729 120 Output Total 233 953 8384 Balance 4925 3004 -1280 PT 16.3 SEC (12.0-15.0) H 04/08/17 09:00 INR 1.31 (0.83-1.16) H 04/08/17 09:00 - Time Spent With Patient Time Spent with Patient: greater than 35 minutes Time Spent with Patient: Greater than 35 minutes spent on this patients care, greater than 50% of time spent counseling, educating, and coordinating care regarding the above mentioned plan. - Physical Exam Constitutional: no apparent distress Eyes: PERRL, anicteric sclera Ears, Nose, Mouth, Throat: moist mucous membranes, hearing normal, ears appear normal, no oral mucosal ulcers, other (Posterior oropharynx may be slightly red but no purulence is noted. Uvula and soft palate appear normal. There are no buccal or gingival lesions seen.) Cardiovascular: regular rate and rhythym, no murmur, rub, or gallop, systolic murmur Respiratory: no respiratory distress, no rales or rhonchi, clear to auscultation Gastrointestinal: normoactive bowel sounds, soft, non-tender abdomen, no palpable masses Genitourinary: no bladder fullness, other (No blood seen at the penis. Condom catheters in place. Testicles and penis appear normal.) Skin: warm, other (No rashes are appreciated.) Musculoskeletal: generalized weakness Neurologic: AAOx3, CN II-XII Intact, other (Mentation is slow but most of the time he is oriented x3. Cranial 2 through 12 were intact Babinski's are plantar response.) Psychiatric: flat affect ICD10 Worksheet Patient Problems: Problems Problem Status Onset Hemorrhoid Acute Multiple falls Acute Parkinsons Acute Rectal bleed Acute Dementia without behavioral disturbance Acute Hypotension Acute Lewy body dementia Acute Parkinson disease Acute Rhabdomyolysis Acute Shoulder pain, bilateral Acute Urinary retention Acute Weakness Acute Weakness Acute
--- NOTE | 2017-04-09 19:20 | GCON ---
[f rep st] CONSULTATION INFECTIOUS DISEASE CONSULTATION DATE OF CONSULTATION: 04/09/2017 REFERRING PHYSICIAN: Tom Shelton Jr., MD REASON FOR CONSULTATION: Fever of unclear etiology. HISTORY OF PRESENT ILLNESS: This is a 61-year-old male who moved to [place] approximately a year and half ago from [place], who has underlying Parkinson' s/Lewy body dementia, who presented to the emergency room on 04/05/2017 for possible GI bleed. The patient was admitted for evaluation of hematochezia. Initial workup showed a relatively normal hematocrit at 40. He denied abdominal pain, nausea, vomiting on admission. He does have chronic constipation with a BM every 4-5 days. He never had a decline in his hematocrit throughout his hospitalization but, on 04/07/2017, he did develop a temperature to 39.5. Blood and urine cultures were obtained at that time. The patient was empirically started on ertapenem 1 g IV daily. Overnight the patient developed some mild hypotension and had a persistent fever to 39.3. He subsequently was changed to ceftriaxone 1 g IV daily. Since that time, patient has had a fever at noon on the to 38.7 and today at 2 a.m. to 38.2. He does not feel these temperatures. In fact, patient denies headache, sinus congestion, neck pain, shortness of breath, cough, abdominal pain, joint pain, myalgia, malaise, diarrhea and rash. His primary complaint is some mild oral pain. REVIEW OF SYSTEMS: A complete 10-point review of systems was performed and is negative except as mentioned in the HPI. PAST MEDICAL HISTORY: Parkinsonism, Lewy body dementia, urinary incontinence, hyponatremia. PAST SURGICAL HISTORY: Appendectomy and strabismus. FAMILY HISTORY: Positive for heart disease and dementia. SOCIAL HISTORY: Patient has 6 children. He is but engaged. Former tobacco. Not sexually active. 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 No alcohol. EXPOSURE HISTORY: Patient is originally from [place], moved here a year and half ago. No international travel. Denies contact with small children. No sick contacts. ALLERGIES: NKDA. MEDICATIONS: Ertapenem 1 g IV daily on 04/07, changed to ceftriaxone 1 g on . He is also on Sinemet 1 tablet 6 times daily, Colace 100 mg twice daily, Neurontin 400 mg twice daily, Zofran, oxycodone, Flomax 0.8 mg daily. PHYSICAL EXAMINATION: VITAL SIGNS: Blood pressure 135/77, heart rate 79, respiratory rate 19, saturation 93% on room air. T-current is 36.9. GENERAL: Pleasant nontoxic-appearing male, who has somewhat sluggish speech but answers all questions appropriately. HEENT: Dry mucous membranes. No oral ulcerations or exudates were noted. NECK: Supple. No clear meningismus. CARDIOVASCULAR: Regular rate. No murmur. CHEST: Clear to auscultation bilaterally. ABDOMEN: Soft, nontender. : Bilateral descended testicles. Circumcised phallus. No penile lesions. A condom cath was in place. BOTTOM: No skin breakdown. EXTREMITIES: No clubbing, cyanosis, or edema. The patient had some cogwheel rigidity as expected but was moving all 4 extremities equally. LABORATORY DATA: White count on admission was 10,700, with 92% neutrophils; today is 6.4 with 50% neutrophils, 28% bands, 14% lymphocytes, hematocrit 40, platelets 162. CRP of 78, creatinine 0.9. Blood cultures from 04/07 are no growth to date, as well as a urine culture. IMAGING: Performed on 04/08 that was a head CT, was negative. A CT abdomen and pelvis urogram that showed left-sided nephrolithiasis but no clear source for infection. Urinalysis on the showed 20-50 RBCs, 20-50 WBCs, and trace leukocyte esterase. ASSESSMENT AND PLAN: This is a 61-year-old male with parkinsonism and Lewy body dementia who was admitted for possible gastrointestinal bleed but subsequently was found to have a fever which has been persistent since the with associated mild leukocytosis, as well as bandemia. Interestingly, no localizing symptoms or physical exam finding. UA does show some mild pyuria and hematuria so could consider urinary source, although urine culture negative so far. Further imaging of head, abdomen and pelvis shows no clear source. Further, patient has no symptoms of pneumonia with a negative chest x-ray, normal O2 sats and no symptoms. No gastrointestinal symptoms to suggest gastroenteritis. RECOMMENDATIONS: 1. Reasonable to continue ceftriaxone while awaiting maturity of urine and blood cultures and evaluate for source. 2. Would obtain a respiratory viral swab to evaluate for potential viral etiology of patient's fever with minimal symptoms. 3. If fever continues, could consider expansion of evaluation for more unusual etiologies pertinent to patient's past history of living in [place] and other more common causes of FUO such as Q fever. Would hold off on this workup for now. We will continue to follow with you. 4. Monitor urine and blood cultures. Thank you for this consultation. /[id number]/MODL MTDD
[2017-04-09] MEDS: DESMOPRESSIN 10 MCG/0.1 ML 5ML NASAL SPRAY EACHNARE SCH (20:46)
[2017-04-10] MEDS: CARBIDOPA/LEVODOPA 25 MG/100 MG TAB PO SCH ×6 (00:32→20:15)
[2017-04-10 09:24] LABS: % IMMATURE GRANULYOCYTES 0.4 % (0.0-1.1); ABSOLUTE IMMATURE GRANULOCYTES 0.02 10^3/uL (0.00-0.10); ADD DIFF? NO; ADD MORPH? NO; ADD SCAN? YES; FRAGMENT RBC FLAG 0 (0-99); HEMATOCRIT 38.8 % (40.0-51.0); HEMOGLOBIN 13.2 g/dL (13.7-17.5); LEFT SHIFT FLG 0 (0-99); LIPEMIA HEMOLYSIS FLAG 90 (0-99); MEAN CELL HEMOGLOBIN 30.6 pg (27.9-34.1); MEAN PLATELET VOLUME 9.8 fL (8.7-11.7); PLATELET CLUMPS FLAG 0 (0-99); PLATELET COUNT 175 10^3/uL (150-400); RED BLOOD CELL COUNT 4.31 10^6/uL (4.40-6.38); RED CELL DISTRIBUTION WIDTH 12.6 % (11.5-15.2)
[2017-04-10 09:25] LABS: ATYPICAL LYMPHOCYTE FLAG 120 (0-99)
[2017-04-10 09:51] LABS: SCAN NEGATIVE
[2017-04-10] MEDS: GABAPENTIN 300 MG CAP PO SCH ×2 (10:03→20:15)
[2017-04-10] MEDS: TAMSULOSIN HCL 0.4 MG CAP PO SCH (10:03)
[2017-04-10] MEDS: DOCUSATE SODIUM 100 MG CAP PO SCH ×2 (10:03→20:15)
[2017-04-10] MEDS: SODIUM CHLORIDE 1,000 MG TAB PO SCH ×3 (10:03→17:13)
[2017-04-10] MEDS: Mirabegron [Myrbetriq] 50 MG PO SCH (10:04)
--- NOTE | 2017-04-10 10:17 | PCMIDPN ---
Assessment/Plan: Assessment: fevers - apparently resolved after empiric course of ceftriaxone preceded by a carbapenem. No clear focal site of infection. Patient may be having thermal dysregulation due to autonomic issues from underlying neurologic illness - or may have had an unidentified viral episode. Either way, concur with the plan to discontinue the empiric antibiotics and observe. Plan: 1) Discontinue ceftriaxone. 2) Follow clinical course. 04/08/17 13:35 04/10/17 22:33 Subjective: Patient is resting in his hospital bed. No localizing complaint. No further fevers. Objective: ceftriaxone #2 Vital Signs Temp Pulse Resp BP Pulse Ox 36.9 C 69 19 147/89 H 92 04/10/17 07:01 04/10/17 07:01 04/10/17 07:01 04/10/17 07:01 04/10/17 07:01 Microbiology 04/09/17 17:10 Respiratory Panel (PCR) - Final Nasal, Sinus - Swab No Organism Detected 04/07/17 21:00 Urine Culture - Final Urine,Clean Catch Laboratory Results 04/10/17 09:00 04/09/17 09:15 04/09/17 04/10/17 04/11/17 05:59 05:59 05:59 Intake Total 3729 1820 925 Output Total 725 3750 Balance 3004 -1930 925 C-Reactive Protein 78.3 mg/L (<10.0) H 04/08/17 19:36 - Physical Exam General Appearance: WD/WN, alert, other (chronically ill appearing) Respiratory: lungs clear, normal breath sounds, No respiratory distress Cardiac/Chest: regular rate, rhythm, No tachycardia Skin: normal color, warm/dry, No rash Neuro/Psych: alert, normal mood/affect ICD10 Worksheet Patient Problems: Problems Problem Status Onset Hemorrhoid Acute Multiple falls Acute Parkinsons Acute Rectal bleed Acute Dementia without behavioral disturbance Acute Hypotension Acute Lewy body dementia Acute Parkinson disease Acute Rhabdomyolysis Acute Shoulder pain, bilateral Acute Urinary retention Acute Weakness Acute Weakness Acute
[2017-04-10] MEDS: GABAPENTIN 100 MG CAP PO SCH ×3 (12:53→17:14)
[2017-04-10] MEDS ORDERED: MIDAZOLAM 2 MG/2 ML VIAL ONE (13:54)
[2017-04-10] MEDS ORDERED: fentaNYL 100 MCG/2 ML INJ ONE (13:54)
--- NOTE | 2017-04-10 17:03 | HOSPPROG ---
Hospitalist Progress Note Assessment/Plan: 61-year-old male with known Parkinson's and Lewy body disease who was readmitted after an episode of weakness and possible hematuria or hematochezia. since admission we have confirmed that this has been intermittent hematuria likely secondary to trauma to the penis. There has been no hematochezia. In the prior 3 days he had intermittent fevers has undergone cultures. Fever has resolved in the last 36 hours. -hematuria: Secondary to penile trauma self induced by the patient. Consult by Urology appreciated. -Parkinson's disease and Lewy body dementia: T mental status waxes and wanes with his fever. Today is more alert and interactive and afebrile. -persistent intermittent fever in the last 9, none in the last 36-48 hours. hours despite the use of antibiotics with negative blood cultures. This is probably viral. Cultures of the blood urine strep screen, flu swab, and respiratory viral PCR are all negative. Is possible he is having intermittent fevers from a cerebral fact of his Parkinson's and Lewy body disease. -hyponatremia: Resolved -autonomic dysfunction with orthostatic hypotension. This problem places him at a fall risk. Plan: Disposition will be to [facility], [facility]. Time: 40 minutes with discussion with Dr. Hinton, infectious Disease, and with nursing staff and case management. Plan has been discussed with his mami ID and the nursing staff and case management. Subjective: More alert and interactive this morning. No complaints Objective: Vital Signs Temp Pulse Resp BP Pulse Ox 36.8 C 65 20 122/70 H 93 04/10/17 15:14 04/10/17 15:14 04/10/17 15:14 04/10/17 15:14 04/10/17 15:14 Microbiology 04/09/17 17:10 Respiratory Panel (PCR) - Final Nasal, Sinus - Swab No Organism Detected 04/07/17 21:00 Urine Culture - Final Urine,Clean Catch Laboratory Results 04/10/17 09:00 04/09/17 09:15 04/09/17 04/10/17 04/11/17 05:59 05:59 05:59 Intake Total 3729 1820 1265 Output Total 725 2120 475 Balance 3004 -1930 790 PT 16.3 SEC (12.0-15.0) H 04/08/17 09:00 INR 1.31 (0.83-1.16) H 04/08/17 09:00 - Time Spent With Patient Time Spent with Patient: greater than 35 minutes Time Spent with Patient: Greater than 35 minutes spent on this patients care, greater than 50% of time spent counseling, educating, and coordinating care regarding the above mentioned plan. - Pending Discharge Pending Discharge Within 24 Hours: Yes Pending Discharge Date: 04/11/17 Pending Discharge Time: 11:00 - Physical Exam Constitutional: no apparent distress Eyes: PERRL, anicteric sclera Ears, Nose, Mouth, Throat: moist mucous membranes, hearing normal, ears appear normal, no oral mucosal ulcers, other Cardiovascular: regular rate and rhythym, no murmur, rub, or gallop Respiratory: no respiratory distress, no rales or rhonchi, clear to auscultation Gastrointestinal: normoactive bowel sounds, soft, non-tender abdomen, no palpable masses Genitourinary: no bladder fullness, other (Condom catheter is in place) Skin: warm, other Musculoskeletal: generalized weakness Neurologic: AAOx3, CN II-XII Intact (He responds very slowly and sometimes is less responsive than others. His mental status and responsiveness waxes and wanes.) Psychiatric: interacting appropriately Lymph, Heme, Immunologic: no cervical LAD, no supraclavicular LAD ICD10 Worksheet Patient Problems: Problems Problem Status Onset Hemorrhoid Acute Rectal bleed Acute Multiple falls Acute Parkinsons Acute Lewy body dementia Acute Rhabdomyolysis Acute Weakness Acute Parkinson disease Acute Dementia without behavioral disturbance Acute Urinary retention Acute Shoulder pain, bilateral Acute Hypotension Acute Weakness Acute
[2017-04-10] MEDS: DESMOPRESSIN 10 MCG/0.1 ML 5ML NASAL SPRAY EACHNARE SCH (20:15)
[2017-04-10] MEDS: NS 1,000 ML IV SCH (20:16)
[2017-04-11 05:44] LABS: % IMMATURE GRANULYOCYTES 0.7 % (0.0-1.1); ABSOLUTE IMMATURE GRANULOCYTES 0.04 10^3/uL (0.00-0.10); ADD DIFF? NO; ADD MORPH? NO; ADD SCAN? YES; FRAGMENT RBC FLAG 0 (0-99); HEMATOCRIT 37.1 % (40.0-51.0); HEMOGLOBIN 12.5 g/dL (13.7-17.5); LEFT SHIFT FLG 0 (0-99); LIPEMIA HEMOLYSIS FLAG 80 (0-99); MEAN CELL HEMOGLOBIN 30.9 pg (27.9-34.1); MEAN CELL HEMOGLOBIN CONCENTR. 33.7 g/dL (32.4-36.7); MEAN CELL VOLUME 91.6 fL (81.5-99.8); MEAN PLATELET VOLUME 10.3 fL (8.7-11.7); PLATELET CLUMPS FLAG 0 (0-99); PLATELET COUNT 176 10^3/uL (150-400); RED BLOOD CELL COUNT 4.05 10^6/uL (4.40-6.38); RED CELL DISTRIBUTION WIDTH 12.8 % (11.5-15.2)
[2017-04-11 05:45] LABS: ATYPICAL LYMPHOCYTE FLAG 160 (0-99)
[2017-04-11] MEDS: CARBIDOPA/LEVODOPA 25 MG/100 MG TAB PO SCH ×6 (05:48→20:25)
[2017-04-11 06:15] LABS: SCAN NEGATIVE
[2017-04-11] MEDS: NS 1,000 ML IV SCH (08:29)
[2017-04-11] MEDS: DOCUSATE SODIUM 100 MG CAP PO SCH ×2 (08:33→20:25)
[2017-04-11] MEDS: SODIUM CHLORIDE 1,000 MG TAB PO SCH ×3 (08:33→18:30)
[2017-04-11] MEDS: GABAPENTIN 300 MG CAP PO SCH ×2 (08:34→20:26)
[2017-04-11] MEDS: TAMSULOSIN HCL 0.4 MG CAP PO SCH (08:36)
--- NOTE | 2017-04-11 08:50 | PCMIDPN ---
Assessment/Plan: Assessment: fevers - apparently resolved after empiric course of ceftriaxone preceded by a carbapenem. No clear focal site of infection. viral infection seems most likely. Temperature dysregulation associated with Parkinson's disease is not typically episodic and so clearly limited from normal temp curves. At this point will discontinue the antibiotics. Will discuss with hospitalist about discharge to home. Plan: 1) Discontinue ceftriaxone. 2) Clear for discharge. Subjective: Patient is resting comfortably in his bed. He is in good spirits and very conversant. He denies any subjective fever chills or sweats. States he is back to baseline. Objective: Ceftriaxone # 3 Vital Signs Temp Pulse Resp BP Pulse Ox 36.8 C 62 20 142/81 H 91 L 04/11/17 07:44 04/11/17 07:44 04/11/17 07:44 04/11/17 07:44 04/11/17 07:44 Laboratory Results 04/11/17 03:34 04/09/17 09:15 04/10/17 04/11/17 04/12/17 05:59 05:59 05:59 Intake Total 1820 4401 Output Total 3750 2725 Balance -1930 1676 C-Reactive Protein 78.3 mg/L (<10.0) H 04/08/17 19:36 - Physical Exam General Appearance: WD/WN, alert, no apparent distress, non-toxic Respiratory: lungs clear, normal breath sounds, No respiratory distress, No crackles Cardiac/Chest: regular rate, rhythm, No tachycardia Skin: normal color, warm/dry, No rash Neuro/Psych: alert, normal mood/affect, oriented x 3 ICD10 Worksheet Patient Problems: Problems Problem Status Onset Hemorrhoid Acute Multiple falls Acute Parkinsons Acute Rectal bleed Acute Dementia without behavioral disturbance Acute Hypotension Acute Lewy body dementia Acute Parkinson disease Acute Rhabdomyolysis Acute Shoulder pain, bilateral Acute Urinary retention Acute Weakness Acute Weakness Acute
[2017-04-11] MEDS: Mirabegron [Myrbetriq] 50 MG PO SCH (11:07)
[2017-04-11] MEDS: GABAPENTIN 100 MG CAP PO SCH ×2 (13:02→19:00)
[2017-04-11] MEDS: TEARS/DEXTRAN 70/HYPROMELLOSE 15 ML OPHT.BTL EACHEYE PRN (13:15)
--- NOTE | 2017-04-11 13:34 | HOSPPROG ---
Hospitalist Progress Note Assessment/Plan: 61 yo M with hx of Parkinson's disease and Lewy body dementia pw weakness and hematuria # hematuria: presumed to be 2/2 self induced penile trauma, urology consult appreciated, abd ct personally reviewed showing mild bladder wall thickening and nephrolithiasis but no etiology for bleeding. Urine now appears clear. # weakness: ongoing issue, multifactorial and not much improvement since admission, will need to dc to snf # fevers: intermittent fevers intially that have now resolved, afebrile x 3 days , appreciate ID input, monitoring off of abx given no clear source of infection # PD/lewy body dementia: with cognitive dysfunction associated with this as well as intermittent issues with hallucinations, currently appears to be relatively stable, dc to snf # urinary incontinence: has been an ongoing issue, continue mirabegron, flomax, desmopressin. Currently with condom catheter on. # autonomic dysfunction: related to PD, has had orthostatic hypotension related to same # protein calorie malnutrition: dietary involved Dispo: IP status, will dc to snf likely on Thursday Patient new to my care. Old records reviewed and summarized as above. Care plan reviewed with CM Subjective: no significant overnight events, patient states he is feeling well though he is worried about the "leak" in the ceiling Objective: Vital Signs Temp Pulse Resp BP Pulse Ox 37.1 C 68 118 H 129/75 H 91 L 04/11/17 12:50 04/11/17 12:50 04/11/17 12:50 04/11/17 12:50 04/11/17 12:50 Laboratory Results 04/11/17 03:34 04/09/17 09:15 04/10/17 04/11/17 04/12/17 05:59 05:59 05:59 Intake Total 1820 4401 Output Total 3750 2725 900 Balance -1930 1676 -900 PT 16.3 SEC (12.0-15.0) H 04/08/17 09:00 INR 1.31 (0.83-1.16) H 04/08/17 09:00 awake alert chronically ill appearing anicteric op clear rrr no mrg cta with dec bs at bases soft nt nd 1+ ble edema warm dry well perfused oriented, perseverating on "leak" from ceiling ICD10 Worksheet Patient Problems: Problems Problem Status Onset Hemorrhoid Acute Multiple falls Acute Parkinsons Acute Rectal bleed Acute Dementia without behavioral disturbance Acute Hypotension Acute Lewy body dementia Acute Parkinson disease Acute Rhabdomyolysis Acute Shoulder pain, bilateral Acute Urinary retention Acute Weakness Acute Weakness Acute
[2017-04-11] MEDS: DESMOPRESSIN 10 MCG/0.1 ML 5ML NASAL SPRAY EACHNARE SCH (20:25)
[2017-04-12 07:54] LABS: % IMMATURE GRANULYOCYTES 0.7 % (0.0-1.1); ABSOLUTE IMMATURE GRANULOCYTES 0.05 10^3/uL (0.00-0.10); ADD DIFF? NO; ADD MORPH? NO; ADD SCAN? YES; FRAGMENT RBC FLAG 30 (0-99); HEMATOCRIT 38.1 % (40.0-51.0); HEMOGLOBIN 12.9 g/dL (13.7-17.5); LEFT SHIFT FLG 0 (0-99); LIPEMIA HEMOLYSIS FLAG 90 (0-99); MEAN CELL HEMOGLOBIN 30.5 pg (27.9-34.1); MEAN CELL HEMOGLOBIN CONCENTR. 33.9 g/dL (32.4-36.7); MEAN CELL VOLUME 90.1 fL (81.5-99.8); MEAN PLATELET VOLUME 9.9 fL (8.7-11.7); PLATELET CLUMPS FLAG 0 (0-99); PLATELET COUNT 234 10^3/uL (150-400); RED BLOOD CELL COUNT 4.23 10^6/uL (4.40-6.38); RED CELL DISTRIBUTION WIDTH 12.6 % (11.5-15.2)
[2017-04-12] MEDS: CARBIDOPA/LEVODOPA 25 MG/100 MG TAB PO SCH ×6 (08:11→21:03)
[2017-04-12] MEDS: GABAPENTIN 300 MG CAP PO SCH ×3 (08:12→21:03)
[2017-04-12] MEDS: TAMSULOSIN HCL 0.4 MG CAP PO SCH (08:12)
[2017-04-12] MEDS: DOCUSATE SODIUM 100 MG CAP PO SCH ×2 (08:12→21:03)
[2017-04-12 08:13] LABS: ANION GAP 8 mEq/L (8-16); CALCIUM 9.1 mg/dL (8.5-10.4); CARBON DIOXIDE 25 mEq/l (22-31); CHLORIDE 109 mEq/L (97-110); CREATININE 0.9 mg/dL (0.7-1.3); GLOMERULAR FILTRATION RATE > 60; GLUCOSE 84 mg/dL (70-100); POTASSIUM 4.1 mEq/L (3.5-5.2); SODIUM 142 mEq/L (134-144)
[2017-04-12] MEDS: SODIUM CHLORIDE 1,000 MG TAB PO SCH ×3 (08:13→16:44)
[2017-04-12] MEDS: Mirabegron [Myrbetriq] 50 MG PO SCH (08:14)
[2017-04-12 08:30] LABS: ATYPICAL LYMPHOCYTE FLAG 110 (0-99)
[2017-04-12 11:54] LABS: SCAN POSITIVE
[2017-04-12 11:55] LABS: PLATELET ESTIMATE ADEQUATE (ADEQ)
[2017-04-12] MEDS: ACETAMINOPHEN 325 MG TAB PO PRN (12:47)
[2017-04-12] MEDS: GABAPENTIN 100 MG CAP PO SCH ×2 (12:48→21:01)
--- NOTE | 2017-04-12 15:56 | HOSPPROG ---
Hospitalist Progress Note Assessment/Plan: 61 yo M with hx of Parkinson's disease and Lewy body dementia pw weakness and hematuria # hematuria: presumed to be 2/2 self induced penile trauma, urology consult appreciated, abd ct personally reviewed showing mild bladder wall thickening and nephrolithiasis but no etiology for bleeding. Urine now appears clear. # weakness: ongoing issue, multifactorial and not much improvement since admission, will need to dc to snf. This is likely largely related to progression of underlying PD but patient and fiance hopeful he can get stronger to where he can return home. # fevers: intermittent fevers intially that have now resolved, afebrile x 3 days , appreciate ID input, monitoring off of abx without recurrence # PD/lewy body dementia: with cognitive dysfunction associated with this as well as intermittent issues with hallucinations, currently appears to be back to baseline, dc to snf. continue carbidopa/levodopa # urinary incontinence: has been an ongoing issue, continue mirabegron, flomax, desmopressin. # autonomic dysfunction: related to PD, has had orthostatic hypotension related to same # protein calorie malnutrition: dietary involved Dispo: IP status, will dc to snf likely on Thursday Care plan reviewed with CM. Further hx obtained from patients fiance present at bedside. Subjective: no significant overnight events, patient currently feeling better but still fairly weak, no new complaints, has walked with pt Objective: Vital Signs Temp Pulse Resp BP Pulse Ox 37.0 C 65 14 124/78 H 98 04/12/17 15:46 04/12/17 15:46 04/12/17 15:46 04/12/17 15:46 04/12/17 15:46 Laboratory Results 04/12/17 04:05 04/12/17 03:11 04/11/17 04/12/17 04/13/17 05:59 05:59 05:59 Intake Total 4401 1375 800 Output Total 2725 1375 550 Balance 1676 0 250 PT 16.3 SEC (12.0-15.0) H 04/08/17 09:00 INR 1.31 (0.83-1.16) H 04/08/17 09:00 awake alert chronically ill appearing anicteric op clear rrr no mrg cta with dec bs at bases soft nt nd 1+ ble edema warm dry well perfused oriented, appropriate - Time Spent With Patient Time Spent with Patient: greater than 35 minutes Time Spent with Patient: Greater than 35 minutes spent on this patients care, greater than 50% of time spent counseling, educating, and coordinating care regarding the above mentioned plan. ICD10 Worksheet Patient Problems: Problems Problem Status Onset Hemorrhoid Acute Multiple falls Acute Parkinsons Acute Rectal bleed Acute Dementia without behavioral disturbance Acute Hypotension Acute Lewy body dementia Acute Parkinson disease Acute Rhabdomyolysis Acute Shoulder pain, bilateral Acute Urinary retention Acute Weakness Acute Weakness Acute
[2017-04-12] MEDS: DESMOPRESSIN 10 MCG/0.1 ML 5ML NASAL SPRAY EACHNARE SCH (21:03)
[2017-04-13] MEDS: CARBIDOPA/LEVODOPA 25 MG/100 MG TAB PO SCH ×5 (01:47→15:54)
[2017-04-13] MEDS: GABAPENTIN 300 MG CAP PO SCH (10:10)
[2017-04-13] MEDS: SODIUM CHLORIDE 1,000 MG TAB PO SCH ×2 (10:14→13:13)
[2017-04-13] MEDS: Mirabegron [Myrbetriq] 50 MG PO SCH (10:15)
[2017-04-13] MEDS: DOCUSATE SODIUM 100 MG CAP PO SCH (10:15)
[2017-04-13] MEDS: TAMSULOSIN HCL 0.4 MG CAP PO SCH (10:18)
[2017-04-13] MEDS: TEARS/DEXTRAN 70/HYPROMELLOSE 15 ML OPHT.BTL EACHEYE PRN (13:14)
[2017-04-13] MEDS: GABAPENTIN 100 MG CAP PO SCH (13:17)
[2017-04-13 14:49] VITALS: BP 129/74; PULSE 72; RESP 16; TEMP 98.2; O2SAT 93
--- NOTE | 2017-04-13 15:01 | PDDCSUM ---
Discharge Summary Discharge Summary: Dates of service 04/05-04/13/17 Discharge dx: # hematuria # weakness # fevers # Parkinson's disease/lewy body dementia # chronic urinary incontinence # autonomic dysfunction # protein calorie malnutrition consultations: urology, infectious disease Procedures performed: abd ct Hospital course by problem: # hematuria: presumed to be 2/2 self induced penile trauma, urology consult appreciated, abd ct personally reviewed showing mild bladder wall thickening and nephrolithiasis but no etiology for bleeding. Urine now clear. # weakness: ongoing issue, multifactorial and not much improvement since admission, will need to dc to snf. This is likely largely related to progression of underlying PD but patient and fiance hopeful he can get stronger to where he can return home. # fevers: intermittent fevers intially that have now resolved, afebrile x 3 days , appreciate ID input, off of abx without recurrence # PD/lewy body dementia: with cognitive dysfunction associated with this as well as intermittent issues with hallucinations, currently appears to be back to baseline, dc to snf. continue carbidopa/levodopa # urinary incontinence: has been an ongoing issue, continue mirabegron, flomax, desmopressin. # autonomic dysfunction: related to PD, has had orthostatic hypotension related to same # protein calorie malnutrition: will need to continue to pursue improved nutrition DC to SNF F/u with doctor at snf and with pcp after dc > 35 minutes spent in dc of patient, more than half in coordination of care
--- NOTE | 2017-04-13 15:01 | PDIAF ---
- Diagnosis Code Status: Full Code - Medication Management Discharge Medications: Medications to Continue on Transfer Desmopressin (Nonrefrigerated) [Desmopressin 10 Mcg/0.1 ml [place]] 10 mcg EACHNARE HS #1 btl 03/20/17 [Last Taken 04/04/17] Mirabegron [Myrbetriq] 50 mg PO DAILY #30 tab.er.24h 03/20/17 [Last Taken ] Acetaminophen [Tylenol 325mg (*)] 650 mg PO Q4 PRN 03/27/17 [Last Taken Unknown] Carbidopa/Levodopa 25/100Mg [Sinemet 25/100 MG (*)] 1 tab PO 00,04,08,12,16,20 03/27/17 [Last Taken 04/05/17 14:00] Sodium Chloride [Salt Tablet] 1,000 mg PO TIDMEAL #90 tab 04/03/17 [Last Taken 04/05/17 09:00] Tamsulosin HCl [Flomax 0.4 MG (*)] 0.4 mg PO DAILY #30 cap 04/03/17 [Last Taken 04/05/17] oxyCODONE IR [Oxycodone Ir (*)] 5 - 10 mg PO Q3HRS PRN #30 tab 04/03/17 [Last Taken Unknown] Docusate Sodium [Colace 100 MG (*)] 100 mg PO BID 04/05/17 [Last Taken 04/04/17] Gabapentin [Neurontin 100 MG (*)] 100 mg PO BID@12,18 04/05/17 [Last Taken 04/05 12:00] Gabapentin [Neurontin 300 MG (*)] 300 mg PO BID@08,04/05/17 [Last Taken 04/05 08:00] Discharge Medications: Refer to the Discharge Home Medication list for PRN reason. - Orders Services needed: Registered Nurse, Certified Dope Firer, Physical Therapy, Occupational Therapy Diet Recommendation: no restrictions on diet - Follow Up Care Current Providers and Referrals: Patient,NotPresent [Unknown] - As per Instructions
== END 2017-04-13 17:20 | DRG 394 ==
LOC: EDUNIT# → OBSVTOIN 15:01 → F1N 15:17 → F2W 04-08 19:51
PROVIDERS: ADMIT Internal Medicine; ATTEND Internal Medicine
DX: K64.9 Unspecified hemorrhoids (principal); R31.9 Hematuria, unspecified; E46 Unspecified protein-calorie malnutrition; R32 Unspecified urinary incontinence; G31.83 Neurocognitive disorder with Lewy bodies; F02.80 Dementia in other diseases classified elsewhere, unspecified severity, without behavioral disturbance, psychotic disturbance, mood disturbance, and anxiety; G90.3 Multi-system degeneration of the autonomic nervous system; R41.9 Unspecified symptoms and signs involving cognitive functions and awareness; E87.1 Hypo-osmolality and hyponatremia
CPT/HCPCS: 97112-GP; 97116-GP; 97161-GP; 97166-GO; 97530-GO; 97530-GP; 97535-GO; J0696; J1335; J2250; J3010; Q9967

== ENCOUNTER → 2018-01-16 | Outpatient (CLI) | payer OTHER, MEDICAID | LOC: FIMAGING 12:01 | DX: G20 Parkinson's disease (principal); G24.9 Dystonia, unspecified; G31.9 Degenerative disease of nervous system, unspecified; R90.82 White matter disease, unspecified ==

== ENCOUNTER 2018-05-20 06:37 | Emergency (ER) | payer OTHER, MEDICAID ==
--- NOTE | 2018-05-20 07:05 | EDPHY ---
H & P Stated Complaint: UTI Time Seen by Provider: 05/20/18 06:42 - Personal History Current Tetanus Diphtheria and Acellular Pertussis (TDAP): Yes - Medical/Surgical History Hx Asthma: No Hx Chronic Respiratory Disease: No Hx Diabetes: No Hx Cardiac Disease: No Hx Renal Disease: Yes Hx Cirrhosis: No Hx Alcoholism: No Hx HIV/AIDS: No Hx Splenectomy or Spleen Trauma: No Other PMH: Parkinsons, urology issues, appy., lewey body dementia - Social History Smoking Status: Former smoker Constitutional: Initial Vital Signs Temperature (C) 36.9 C 05/20/18 06:49 Heart Rate 74 05/20/18 06:49 Respiratory Rate 18 05/20/18 06:49 Blood Pressure 136/88 H 05/20/18 06:49 O2 Sat (%) 95 05/20/18 06:49 O2 Delivery Mode Room Air Allergies/Adverse Reactions: No Known Allergies Allergy (Verified 03/02/17 14:44) Home Medications: Medication Instructions Recorded Desmopressin (Nonrefrigerated) 10 mcg EACHNARE HS #1 btl 03/20/17 [Desmopressin 10 Mcg/0.[address] [place]] Mirabegron [Myrbetriq] 50 mg PO DAILY #30 tab.er.24h 03/20/17 Acetaminophen [Tylenol 325mg (*)] 650 mg PO Q4 PRN 03/27/17 Carbidopa/Levodopa 25/100Mg 1 tab PO 00,04,08,12,16,20 03/27/17 [Sinemet 25/100 MG (*)] Sodium Chloride [Salt Tablet] 1,000 mg PO TIDMEAL #90 tab 04/03/17 Tamsulosin HCl [Flomax 0.4 MG (*)] 0.4 mg PO DAILY #30 cap 04/03/17 oxyCODONE IR [Oxycodone Ir (*)] 5 - 10 mg PO Q3HRS PRN #30 tab 04/03/17 Docusate Sodium [Colace 100 MG (*)] 100 mg PO BID 04/05/17 Gabapentin [Neurontin 100 MG (*)] 100 mg PO BID@12,18 04/05/17 Gabapentin [Neurontin 300 MG (*)] 300 mg PO BID@08,21 04/05/17 Medical Decision Making ED Course/Re-evaluation: CHIEF COMPLAINT: UTI HISTORY OF PRESENT ILLNESS: The patient is a 62 y/o male with a history of Parkinson's disease and recurrent UTI's requiring admission arriving via EMS complaining of "feeling off ". With prior UTI's his main complaint has been altered mental status as he usually does not have typical urinary symptoms. Due to his lack of sensation, he typically presents very late for a UTI. Recently his friend stated that the patient was mentating differently, so the patient called EMS as he was concerned that he developed another UTI. He is currently denying pain, fever, chills or urinary complaints. Denies using a catheter recently. Denies headache , chest pain, shortness of breath, abdominal pain, bowel complaints. REVIEW OF SYSTEMS: A 10 point review of systems was performed and is negative with the exception of the elements mentioned in the history of present illness. PHYSICAL EXAM: HR, BP, O2 Sat, RR. Temp noted. Patient has significant sensory and motor deficits secondary to Parkinson's. General Appearance: Alert, well hydrated, appropriate, and non-toxic appearing. Head: Atraumatic without scalp tenderness or obvious injury Eyes: Pupils equal, round, reactive to light and accommodation, EOMI, no trauma , no injection. Ears: Clear bilaterally, no perforation, normal landmarks Nose: Atraumatic, no rhinorrhea, clear. Throat: There is no erythema or exudates, no lesions, normal tonsils, mucus membranes moist. Neck: Supple, nontender, no lymphadenopathy. Respiratory: No retractions, no distress, no wheezes, and no accessory muscle use. Lungs are clear to auscultation bilaterally. Cardiovascular: Regular rate and rhythm, no murmurs, rubs, or gallops. Bilateral carotid, radial, dorsalis pedis, and posterior tibial pulses intact. Good capillary refill all extremities. Gastrointestinal: Abdomen is soft, nontender, non-distended, no masses, no rebound, no guarding, no peritoneal signs. Musculoskeletal: Normal active ROM of all extremities, atraumatic. Neurological: Alert, appropriate, and interactive. The patient has normal DTRs and non-focal cranial nerves, motor, sensory, and cerebellar exam. Skin: No rashes, good turgor, no nodules on palpation. Past medical history: Parkinson's disease, frequent UTI's, Lewey body dementia Past surgical history: Appendectomy Family history: Denies Social history: Lives in [place], , retired DIFFERENTIAL DIAGNOSIS: The differential diagnosis for the patient's symptoms included but was not limited to pneumonia, urinary tract infection, viral syndrome, meningitis, and sepsis. MEDICAL DECISION MAKING: The patient is a 62 y/o male with a history of Parkinson's disease and recurrent UTI's requiring admission arriving via EMS complaining of "feeling off ". He does not illicit any pain but does have significant sensory and motor deficits. Due to his history of recurrent UTI's, I suspect he has another one. CBC, BMP, bilirubin, lactic acid, PTPTT, UA, and urine microscopy ordered; Leach catheter placed. 0800: Patient's UA is negative. 0806: There is no evidence of altered mental status or a UTI in this patient; he has a negative workup and at his baseline. 0807: Reassessed patient and discussed normal laboratory findings. Return precautions provided; patient is comfortable with this plan. 0840: Patient's does not want to take this patient home as she feels that the patient requires more care than she can provide. They are requesting to speak with case management. 0920: Spoke with case management regarding this patient. Dr. Lopez from [facility] will consult with me regarding this patient. 1200: Patient has been accepted to [facility]. - Data Points Laboratory Results: Laboratory Results 05/20/18 07:00 05/20/18 07:00 05/20/18 05/20/18 05/20/18 07:45 07:20 07:00 WBC RBC Hgb Hct MCV MCH MCHC RDW Plt Count MPV Neut % (Auto) Lymph % (Auto) [place] % (Auto) Eos % (Auto) Baso % (Auto) Nucleat RBC Rel Count Absolute Neuts (auto) Absolute Lymphs (auto) Absolute Monos (auto) Absolute Eos (auto) Absolute Basos (auto) Absolute Nucleated RBC Immature Gran % Immature Gran # PT 13.5 SEC SEC (12.0-15.0) INR 1.01 (0.83-1.16) APTT 31.8 SEC SEC (23.0-38.0) VBG Lactic Acid 1.5 mmol/L mmol/L (0.7-2.1) Sodium Potassium Chloride Carbon Dioxide Anion Gap BUN Creatinine Estimated GFR Glucose Calcium Total Bilirubin Urine Color YELLOW Urine Appearance CLEAR Urine pH 5.0 (5.0-7.5) Ur Specific [place] 1.020 (1.002-1.030) Urine Protein NEGATIVE (NEGATIVE) Urine Ketones NEGATIVE (NEGATIVE) Urine Blood NEGATIVE (NEGATIVE) Urine Nitrate NEGATIVE (NEGATIVE) Urine Bilirubin NEGATIVE (NEGATIVE) Urine Urobilinogen NEGATIVE EU EU (0.2-1.0) Ur Leukocyte Esterase NEGATIVE (NEGATIVE) Urine RBC NONE SEEN /hpf /hpf (0-3) Urine WBC 1-3 /hpf /hpf (0-3) Ur Epithelial Cells TRACE /lpf /lpf (NONE-1+) Urine Mucus TRACE /lpf /lpf (NONE-1+) Urine Glucose NEGATIVE (NEGATIVE) 05/20/18 05/20/18 07:00 07:00 WBC 9.00 10^3/uL 10^3/uL (3.80-9.50) RBC 5.21 10^6/uL 10^6/uL (4.40-6.38) Hgb 15.9 g/dL g/dL (13.7-17.5) Hct 47.6 % % (40.0-51.0) MCV 91.4 fL fL (81.5-99.8) MCH 30.5 pg pg (27.9-34.1) MCHC 33.4 g/dL g/dL (32.4-36.7) RDW 12.8 % % (11.5-15.2) Plt Count 219 10^3/uL 10^3/uL (150-400) MPV 9.6 fL fL (8.7-11.7) Neut % (Auto) 76.4 % H % (39.3-74.2) Lymph % (Auto) 14.2 % L % (15.0-45.0) [place] % (Auto) 7.2 % % (4.5-13.0) Eos % (Auto) 1.4 % % (0.6-7.6) Baso % (Auto) 0.4 % % (0.3-1.7) Nucleat RBC Rel Count 0.0 % % (0.0-0.2) Absolute Neuts (auto) 6.86 10^3/uL H 10^3/uL (1.70-6.50) Absolute Lymphs (auto) 1.28 10^3/uL 10^3/uL (1.00-3.00) Absolute Monos (auto) 0.65 10^3/uL 10^3/uL (0.30-0.80) Absolute Eos (auto) 0.13 10^3/uL 10^3/uL (0.03-0.40) Absolute Basos (auto) 0.04 10^3/uL 10^3/uL (0.02-0.10) Absolute Nucleated RBC 0.00 10^3/uL 10^3/uL (0-0.01) Immature Gran % 0.4 % % (0.0-1.1) Immature Gran # 0.04 10^3/uL 10^3/uL (0.00-0.10) PT INR APTT VBG Lactic Acid Sodium 145 mEq/L mEq/L (135-145) Potassium 4.5 mEq/L mEq/L (3.3-5.0) Chloride 108 mEq/L mEq/L (97-110) Carbon Dioxide 28 mEq/l mEq/l (22-31) Anion Gap 9 mEq/L mEq/L (8-16) BUN 27 mg/dL H mg/dL (7-23) Creatinine 1.2 mg/dL mg/dL (0.7-1.3) Estimated GFR > 60 Glucose 90 mg/dL mg/dL (70-100) Calcium 9.6 mg/dL mg/dL (8.5-10.4) Total Bilirubin 0.6 mg/dL mg/dL (0.1-1.4) Urine Color Urine Appearance Urine pH Ur Specific [place] Urine Protein Urine Ketones Urine Blood Urine Nitrate Urine Bilirubin Urine Urobilinogen Ur Leukocyte Esterase Urine RBC Urine WBC Ur Epithelial Cells Urine Mucus Urine Glucose Departure - Departure Disposition: Home, Routine, Self-Care Clinical Impression: History of UTI Condition: Good Instructions: Urinary Tract Infection in Men (ED), Altered Mental Status (ED) Additional Instructions: 1. You do not have evidence of a UTI. 2. Follow-up with your primary doctor within 72 hours. 3. Return to the Emergency Department for fever, chest pain, shortness of breath , confusion, increasing pain or other worsening of condition. Referrals: [facility],. [Clinic] - As per Instructions Report Scribed for: Cortez Gauthier Report Scribed by: Aisha Sales Date of Report: 05/20/18 Time of Report: 06:57
[2018-05-20 07:27] LABS: PLATELET COUNT 219 10^3/uL (150-400)
[2018-05-20 07:29] LABS: INR 1.01 (0.83-1.16); PROTIME(PATIENT) 13.5 SEC (12.0-15.0)
[2018-05-20 12:23] VITALS: BP 128/79
--- NOTE | 2018-05-20 17:17 | ASMTCMCOM ---
CM Note CM Note Notes: I met with patient and his Gypsy to discuss potential respite options. Patient presented to the ER this morning to rule out UTI and with possible AMS. At the time I meet with him, his believes he is at his "baseline" cognition. See ER report for details. Gypsy has been pts. primary washroom operator at home and they are currently in the process of packing/moving out of their 5 bedroom rental home. Gypsy expresses concern and frustration that she is unable to continue caring for patient at this time, especially given the extra stress of an impending move. Patient acknowledges that this has been difficult. We discussed the option of HH services, private pay caretakers, and other family member support. Gypsy explains that patient has adult children in [facility] that are not available due to their work schedules, etc., and that they do not have other family support in [place]. She states that they cannot afford private pay help and that HH services do not provide the "time study observer" care he needs. Patient has had HH services; PT/OT, etc. with [facility] in the past. She asks me about "respite" care options. Per chart review, patient does have Medicare, secondary Medicaid, and ACMI. Patient's ACMI adult care manager is Lauren . Patient has been at [facility] within the past year as well. I contacted Mayte Burrell at [facility] who was able to confirm a 30 day bed for patient with his ACMI. I have completed a ULTC (which Mayte requests that I send with patient) and is able to take patient directly from the ER. Gypsy is comfortable transporting patient to I was also in contact with Carolyn Santos RN with Dr. Merino's office (neurology) at [facility]. Dr. Merino follows patient with his Parkinsons and is also his prescriber of home medications. I was able to have a current home medication list faxed to me which I forwarded to along with patient's ER reocord and ULTC. Date Signed: 05/20/2018 05:16 PM Electronically Signed By:Yari Golden RN
== END 2018-05-20 12:23 | disposition home or self-care (01) ==
LOC: EDUNIT#
DX: N39.0 Urinary tract infection, site not specified (principal); G20 Parkinson's disease; Z87.891 Personal history of nicotine dependence

== ENCOUNTER 2019-01-29 09:58 | Observation (INO) | payer MEDICAID, OTHER ==
--- NOTE | 2019-01-29 10:23 | EDPHY ---
H & P Time Seen by Provider: 01/29/19 10:16 HPI/ROS: HPI: This is a 63-year-old male who presents with Chief Complaint: Urinary tract infection Location: Quality: Suspected urinary tract infection Duration: Signs and Symptoms: no fever, no nausea, no vomiting, no hematemesis, no blood in stool, no abdominal bloating, no diarrhea, no back pain, no urinary symptoms , no testicular/groin pain, no indigestion, no chest pain, no shortness of breath Timing: Severity: Context: Patient arrives via EMS from [facility], accompanied by , with complaints of disorientation the last 2 mornings, moaning in pain the last several days and complaining of penile pain to his . Patient has a suprapubic catheter, history of Lewy body dementia, Parkinson's disease, recurrent UTIs. reports that patient has been on 3 different antibiotics since November for urinary tract infections. She believes that the infection has not completely cleared. Urology advised that he was having bladder spasms but patient continues to moan at night in pain. has noted low-grade fevers. also reports decreased appetite and oral intake. Modifying Factors: See above Comment: ROS: A comprehensive 10 system review of systems is otherwise negative aside from elements mentioned in the history of present illness. MEDICAL/SURGICAL/SOCIAL HISTORY: Medical history: Parkinson, urology issues, Lewey body dementia Surgical history: Appendectomy Social history: Retired. Disabled. . Resident of [facility]. Former smoker. Family history noncontributory. CONSTITUTIONAL: Chronically ill-appearing elderly white male, awake and alert, no obvious distress HEENT: Atraumatic and normocephalic, PERRL, EOMI. Nares patent; no rhinorrhea; no nasal mucosal edema. Tympanic membranes clear. Oropharynx clear, no exudate and dry oral mucosa. Airway patent. No lymphadenopathy. No meningismus. Cardiovascular: Normal S1/S2, regular rate, regular rhythm, without murmur rub or gallop. PULMONARY/CHEST: Symmetrical and nontender. Clear to auscultation bilaterally. Good air movement. No accessory muscle usage. ABDOMEN: Soft, nondistended, nontender, no rebound, no guarding, no peritoneal signs, no masses or organomegaly. No CVAT. EXTREMITIES: 2/2 pulses, strength 5/5, no deformities, no clubbing, no cyanosis or edema. NEUROLOGICAL: no focal neuro deficits. Alert to self and . Mumbles. Follows one-step commands. Tremors noted. SKIN: Warm and dry, no erythema. no rash. Delayed capillary refill. Source: Patient, Family () Exam Limitations: Clinical condition - Medical/Surgical History Hx Asthma: No Hx Chronic Respiratory Disease: No Hx Diabetes: No Hx Cardiac Disease: No Hx Renal Disease: Yes Hx Cirrhosis: No Hx Alcoholism: No Hx HIV/AIDS: No Hx Splenectomy or Spleen Trauma: No Other PMH: Parkinsons, urology issues, appy., lewey body dementia - Social History Smoking Status: Former smoker Constitutional: Initial Vital Signs Temperature (C) 36.6 C 01/29/19 10:14 Heart Rate 55 L 01/29/19 10:14 Respiratory Rate 16 01/29/19 10:14 Blood Pressure 119/56 L 01/29/19 10:14 O2 Sat (%) 99 01/29/19 10:14 O2 Delivery Mode Room Air Allergies/Adverse Reactions: No Known Allergies Allergy (Verified 01/29/19 10:13) Home Medications: Medication Instructions Recorded Acetaminophen [Tylenol 325mg (*)] 650 mg PO Q4 PRN 03/27/17 Carbidopa/Levodopa 25/100Mg 1 tab PO HS 03/27/17 [Sinemet 25/100 MG (*)] Docusate Sodium [Colace 100 MG (*)] 100 mg PO HS 04/05/17 Albuterol Sulfate [Albuterol 2 puffs IH Q4H PRN 01/29/19 Sulfate Hfa] Benzonatate [Tessalon Pearles (RX)] 100 mg PO Q8H PRN 01/29/19 Bisacodyl [Dulcolax] 10 mg RC DAILY PRN 01/29/19 Carbidopa/Levodopa 25/100Mg 1 tab PO DAILY PRN 01/29/19 [Sinemet 25/100 MG (*)] Carbidopa/Levodopa 25/100Mg 2 tab PO 08,12,18,20 01/29/19 [Sinemet 25/100 MG (*)] Cholecalciferol (Vitamin D3) 5,000 unit PO TH 01/29/19 [Vitamin D3] Cranberry Fruit Extract [CRANBERRY] 250 mg PO BID 01/29/19 Dextromethorphan HBr [Tussin Cough] 10 ml PO Q6H PRN 01/29/19 Donepezil HCl [Aricept] 10 mg PO DAILY 01/29/19 Lidocaine 4%/Menthol 1% [Icy Hot 1 patch TD DAILY 01/29/19 Lidocaine/Menthol 4%/1% Patch (*)] Magnesium Hydroxide [Milk of 30 ml PO DAILY PRN 01/29/19 Magnesia] Memantine HCl [Namenda 5 mg (*)] 5 mg PO BID 01/29/19 Oxybutynin Chloride [Ditropan 5mg 5 mg PO DAILY 01/29/19 (RX)] Pimavanserin Tartrate [Nuplazid] 34 mg PO DAILY 01/29/19 Polyethylene Glycol 3350 [Miralax 17 gm PO DAILY 01/29/19 17 gm (*)] Polyvinyl Alcohol [Artificial 2 drops EACHEYE Q2H PRN 01/29/19 Tears] Sennosides [Senokot] 2 tab PO HS 01/29/19 Sennosides/Docusate Sodium 1 tab PO BID PRN 01/29/19 [Senokot-S] oxyCODONE IR [Oxycodone Ir (*)] 5 mg PO Q4H PRN 01/29/19 Medical Decision Making ED Course/Re-evaluation: Vital signs reviewed and blood pressure low normal. IV access, laboratory studies, lactic acid, blood cultures, urinalysis ordered Placed on classroom monitor and given 1 L normal saline 1200: Labs reviewed. WBC 6.58, H&H 12.230.3, lactic acid 1.4, BUN 26, creatinine 1.3 Baseline creatinine is around 0.8-0.9 Urinalysis shows positive nitrate but no signs of infection. Long discussion with who believes that patient is not at baseline of mentation and is dehydrated. She does not feel comfortable taking him back to [facility] and is requesting overnight admission. 1206: ED decision to consult for admission for mild dehydration, acute renal insufficiency, altered mental status. Spoke with Jessica who kindly agrees to admit on med surge in observation status under Dr. Gill. This patient was seen under the supervision of my secondary supervising physician. I evaluated care for this patient with attending. Discussed this patient with Dr. Hui. Differential Diagnosis: Altered mental status including but not limited to hypoglycemia, infectious process, electrolyte abnormality, head injury and intoxicants. - Data Points Laboratory Results: Laboratory Results 01/29/19 10:05 01/29/19 10:05 01/29/19 01/29/19 01/29/19 10:52 10:26 10:05 WBC RBC Hgb Hct MCV MCH MCHC RDW Plt Count MPV Neut % (Auto) Lymph % (Auto) [place] % (Auto) Eos % (Auto) Baso % (Auto) Nucleat RBC Rel Count Absolute Neuts (auto) Absolute Lymphs (auto) Absolute Monos (auto) Absolute Eos (auto) Absolute Basos (auto) Absolute Nucleated RBC Immature Gran % Immature Gran # VBG Lactic Acid 1.4 mmol/L mmol/L (0.7-2.1) Sodium 139 mEq/L mEq/L (135-145) Potassium 4.1 mEq/L mEq/L (3.5-5.2) Chloride 105 mEq/L mEq/L (97-110) Carbon Dioxide 26 mEq/l mEq/l (22-31) Anion Gap 8 mEq/L mEq/L (6-14) BUN 26 mg/dL H mg/dL (7-23) Creatinine 1.3 mg/dL mg/dL (0.7-1.3) Estimated GFR 56 Glucose 86 mg/dL mg/dL (70-100) Calcium 9.1 mg/dL mg/dL (8.5-10.4) Urine Color PALE YELLOW Urine Appearance CLEAR Urine pH 5.0 (5.0-7.5) Ur Specific [place] 1.004 (1.002-1.030) Urine Protein NEGATIVE (NEGATIVE) Urine Ketones NEGATIVE (NEGATIVE) Urine Blood NEGATIVE (NEGATIVE) Urine Nitrate POSITIVE H (NEGATIVE) Urine Bilirubin NEGATIVE (NEGATIVE) Urine Urobilinogen NEGATIVE EU EU (0.2-1.0) Ur Leukocyte Esterase NEGATIVE (NEGATIVE) Urine RBC NONE SEEN /hpf /hpf (0-3) Urine WBC 0-1 /hpf /hpf (0-3) Ur Epithelial Cells NONE SEEN /lpf /lpf (NONE-1+) Urine Mucus TRACE /lpf /lpf (NONE-1+) Urine Glucose NEGATIVE (NEGATIVE) 01/29/19 10:05 WBC 6.58 10^3/uL 10^3/uL (3.80-9.50) RBC 4.23 10^6/uL L 10^6/uL (4.40-6.38) Hgb 12.2 g/dL L g/dL (13.7-17.5) Hct 38.3 % L % (40.0-51.0) MCV 90.5 fL fL (81.5-99.8) MCH 28.8 pg pg (27.9-34.1) MCHC 31.9 g/dL L g/dL (32.4-36.7) RDW 13.9 % % (11.5-15.2) Plt Count 261 10^3/uL 10^3/uL (150-400) MPV 10.3 fL fL (8.7-11.7) Neut % (Auto) 78.8 % H % (39.3-74.2) Lymph % (Auto) 14.0 % L % (15.0-45.0) [place] % (Auto) 4.9 % % (4.5-13.0) Eos % (Auto) 1.2 % % (0.6-7.6) Baso % (Auto) 0.6 % % (0.3-1.7) Nucleat RBC Rel Count 0.0 % % (0.0-0.2) Absolute Neuts (auto) 5.19 10^3/uL 10^3/uL (1.70-6.50) Absolute Lymphs (auto) 0.92 10^3/uL L 10^3/uL (1.00-3.00) Absolute Monos (auto) 0.32 10^3/uL 10^3/uL (0.30-0.80) Absolute Eos (auto) 0.08 10^3/uL 10^3/uL (0.03-0.40) Absolute Basos (auto) 0.04 10^3/uL 10^3/uL (0.02-0.10) Absolute Nucleated RBC 0.00 10^3/uL 10^3/uL (0-0.01) Immature Gran % 0.5 % % (0.0-1.1) Immature Gran # 0.03 10^3/uL 10^3/uL (0.00-0.10) VBG Lactic Acid Sodium Potassium Chloride Carbon Dioxide Anion Gap BUN Creatinine Estimated GFR Glucose Calcium Urine Color Urine Appearance Urine pH Ur Specific [place] Urine Protein Urine Ketones Urine Blood Urine Nitrate Urine Bilirubin Urine Urobilinogen Ur Leukocyte Esterase Urine RBC Urine WBC Ur Epithelial Cells Urine Mucus Urine Glucose Medications Given: Discontinued Medications Sodium Chloride (Ns) 1,000 mls @ 0 mls/hr IV EDNOW ONE; Wide Open PRN Reason: Protocol Stop: 01/29/19 10:43 Last Admin: 01/29/19 10:52 Dose: 1,000 mls Departure - Departure Disposition: [facility] Inpatient Acute Clinical Impression: Acute renal insufficiency Mental status alteration Qualifiers: Altered mental status type: unspecified Qualified Code(s): R41.82 - Altered mental status, unspecified Condition: Fair
[2019-01-29 10:37] LABS: PLATELET COUNT 261 10^3/uL (150-400)
[2019-01-29] MEDS ORDERED: NS 1,000 ML IV ONE (10:42)
[2019-01-29] MEDS ORDERED: SENNOSIDES/DOCUSATE SODIUM TAB PO PRN (12:14)
[2019-01-29] MEDS ORDERED: CARBIDOPA/LEVODOPA 25 MG/100 MG TAB PO PRN (12:14)
[2019-01-29] MEDS ORDERED: MAGNESIUM HYDROXIDE 30 ML UDCUP PO PRN (13:30)
[2019-01-29] MEDS: CARBIDOPA/LEVODOPA 25 MG/100 MG TAB PO SCH ×3 (13:57→20:28)
[2019-01-29] MEDS ORDERED: ACETAMINOPHEN 325 MG TAB PO PRN (14:31)
[2019-01-29] MEDS ORDERED: BISACODYL 10 MG SUPP PR PRN (14:33)
[2019-01-29] MEDS ORDERED: NS 1,000 ML IV SCH (14:45)
--- NOTE | 2019-01-29 15:09 | ASMTCMCOM ---
CM Note CM Note Notes: Pt was admitted with UTI. He has a hx of recurrent UTIs, Parkinson's Disease, Lewy Body dementia. He is a resident at [facility]. His Gypsy Zamarripa [phone] is his MDPOA. CM will follow for any d/c needs. D/C plan: anticipate d/c back to [facility], either for rehab or LTC Date Signed: 01/29/2019 03:08 PM Electronically Signed By:CANDY Shin
--- NOTE | 2019-01-29 15:38 | GHP ---
[f rep st] HISTORY AND PHYSICAL DATE OF ADMISSION: 01/29/2019 CHIEF COMPLAINT: Altered mental status. HISTORY OF PRESENT ILLNESS: Mr. Grubbs is a 63-year-old gentleman with advanced Parkinson's, Lewy body dementia, and history of urinary tract infection, who was transferred via EMS from [facility] out of concern of disorientation for the last 2 mornings. Per the patient's , he had been moaning in pain and complaining of penile pain. The patient has a suprapubic catheter in place. The reported to the emergency room physician social service assistant that the patient has been on 3 different antibiotics since November for urinary tract infections. She believed that it never ever cleared. The also noted that he was having low-grade fevers. During my evaluation, the patient states that he just overall has not been feeling well. He does not complain of any penile pain to me, but says that he suffers from constipation. He is alert and oriented to himself, knows he is in a hospital. I am unclear of his baseline. The patient has requested that I do not call his in regard to asking more information about him at this time. During my interview, he has no chest pain. No shortness of breath. No complaints of fever or chills. He just said that he just is not feeling well and does not want to talk to me any further. PAST MEDICAL HISTORY: 1. Advanced Parkinson's. 2. Lewy body dementia. 3. History of urinary incontinence, as well as urinary tract infections. 4. Rhabdomyolysis. 5. Gait instability with falling. 6. Autonomic dysfunction. 7. Protein calorie malnutrition. PAST SURGICAL HISTORY: Appendectomy. SOCIAL HISTORY: He lives at [facility]. He has 6 children. He is currently . He was a former smoker. FAMILY HISTORY: Unobtainable. The patient is unable to tell me. ALLERGIES: No known allergies. HOME MEDICATIONS: 1. Oxy IR 5 mg p.o. q.4 hours p.r.n. 2. Sinemet 25/100 mg 2 tabs at 8, 12, 1800, 2000. 3. Namenda 5 mg p.o. twice daily. 4. Cranberry fruit extract 250 mg p.o. twice daily. 5. Tylenol 650 mg q.4 hours p.r.n. 6. Sinemet 1 tab daily p.r.n. 7. Senna 1 tab p.o. p.r.n. 8. Levodopa 25/100 one tab at bedtime. 9. Artificial Tears p.r.n. 10. Milk of Mag 30 mL daily p.r.n. 11. Tussin cough 10 mg q.6 hours p.r.n. 12. Dulcolax 10 mg p.r.n. 13. Tessalon Perles 100 mg q.8 hours p.r.n. 14. Albuterol sulfate 2 puffs q.4 hours p.r.n. 15. Lidocaine patch topical daily. 16. Senna 2 tabs p.o. at bedtime. 17. Nuplazid 34 mg daily. 18. Ditropan 5 mg daily. 19. MiraLAX 17 g daily. 20. Colace 100 mg p.o. at bedtime. 21. Aricept 10 mg daily. 22. Vitamin D3 5000 units every . REVIEW OF SYSTEM: A 10-point review of system was performed, was negative other than pertinent positives in the HPI and past medical history. PHYSICAL EXAM: GENERAL: Uri Grubbs is a 63-year-old male who appears to be in fair health. VITAL SIGNS: Blood pressure is 132/73, heart rate is 75, respiratory rate is 16, O2 sats on room air 94%, temperature is 36.6 Celsius. HEENT: Eyes: Pupils are equal reactive. EOMs are intact. ENT: Normal ears and hearing intact. NECK: Trachea is midline. CARDIOVASCULAR: He is in a regular rate and murmur. No murmurs, rubs, or gallops noted. CHEST/LUNGS: Normal respiratory effort. ABDOMEN: Soft, nontender. He has a suprapubic catheter in place. SKIN: He is pale in color. MUSCULOSKELETAL: Not evaluated. PSYCHIATRIC: He is alert. He does not appear to have normal judgment or normal insight or normal memory. He is oriented to himself and where he is. LABORATORY DATA: A CBC shows a white blood cell count 6.58, hemoglobin of 12.2 , hematocrit of 38.3, platelet count of 261. Lactate is 1.4. Chemistry: Sodium is 139, potassium 4.1, chloride of 105, CO2 of 26, BUN of 26, creatinine of 1.3. Urinalysis was performed which was positive for nitrates. ASSESSMENT/PLAN: 1. Acute metabolic encephalopathy. It is difficult to tell his baseline, but he is oriented to himself. Suspect maybe he was dehydrated. He was given fluids in the ER and is quite interactive now. Will follow and see how he does. 2. Advanced Parkinson's. Resume Sinemet. 3. Urinary incontinence with a suprapubic catheter. Will ask the nursing staff to find out when this was replaced. He has nitrates in his urine. Will not treat for infection at this time. He does not appear septic or ill. 4. Constipation. Resumed his bowel protocol. 5. Dehydration with a mildly elevated BUN and creatinine. Will gently hydrate with normal saline overnight and recheck labs in the morning. 6. Code status: Full. 7. Length of stay: He will likely require less than a 2-midnight stay, which will make him observation status. This can be further evaluated in the morning. 8. Deep venous thrombosis prophylaxis. Low molecular weight heparin to be initiated in the morning. /[id number]/MODL MTDD
[2019-01-29] MEDS ORDERED: BENZONATATE 100 MG CAP PO PRN (16:22)
[2019-01-29] MEDS ORDERED: ALBUTEROL 60 PUFFS/8 GM MDI IH PRN (16:30)
[2019-01-29] MEDS: OXYBUTYNIN CHLORIDE 5 MG TAB PO SCH (19:24)
[2019-01-29] MEDS: SENNOSIDES 1 TAB PO SCH ×2 (20:28→20:32)
[2019-01-29] MEDS: MEMANTINE HCL 5 MG TAB PO SCH (20:28)
[2019-01-29] MEDS ORDERED: CARBIDOPA/LEVODOPA 25 MG/100 MG TAB PO SCH (21:00)
[2019-01-29] MEDS ORDERED: DOCUSATE SODIUM 100 MG CAP PO SCH (21:00)
[2019-01-30 08:01] VITALS: BP 164/93
[2019-01-30] MEDS: CARBIDOPA/LEVODOPA 25 MG/100 MG TAB PO SCH ×2 (08:33→11:30)
[2019-01-30] MEDS: OXYBUTYNIN CHLORIDE 5 MG TAB PO SCH (08:33)
[2019-01-30] MEDS: MEMANTINE HCL 5 MG TAB PO SCH (08:33)
[2019-01-30] MEDS ORDERED: ENOXAPARIN 40 MG/0.4 ML SYR SC SCH (09:00)
[2019-01-30] MEDS ORDERED: LIDOCAINE 4%/MENTHOL 1% PATCH TD SCH (09:00)
[2019-01-30] MEDS ORDERED: POLYETHYLENE GLYCOL 3350 17 GM PKT PO SCH (09:00)
[2019-01-30] MEDS ORDERED: DONEPEZIL HCL 5 MG TAB PO SCH (09:00)
--- NOTE | 2019-01-30 12:46 | PDDCSUM ---
Discharge Summary Discharge Summary: Date of Admission: 01/29/2019 Date of Discharge: 01/30/2019 Studies: abdominal x-ray Discharge Diagnoses: 1. Acute metabolic encephalopathy 2/2 dehydration 2. JOSÉ MIGUEL, resolved 3. Urinary incontinence with chronic marvin catheter 4. Constipation 5. Lewy body dementia/Parkinson's 6. Autonomic dysfunction Brief Hospital Course: 63yo M with advanced Parkinson's, Lewy body dementia and a history of UTI presented from [facility] due to altered mental status x2 days. He had reportedly been complaining of penile pain but denied while here. Labs showed mild dehydration and JOSÉ MIGUEL. This resolved with hydration and his mental status improved significantly. His significant other (Gypsy) reports this is the best she's seen him in months. He had no evidence of UTI on UA. His marvin catheter had been exchanged just prior to admission. He was also mildly constipated which may have been contributing. He had a bowel movement prior to discharge. Medications: Please refer to EMR for medication list. I stopped his oxycodone. Follow Up Plan: 1. Clinic visit with Dr Demarco tomorrow 2. Consider discontinuing oxybutynin or finding alternative medication ( mirabegron) Physical Exam: Vitals reviewed, afebrile. Alert, oriented x2 (baseline), tremor , rrr, lungs clear, abdomen soft, marvin in place with yellow urine in bag, no edema.
--- NOTE | 2019-01-30 12:46 | PDIAF ---
- Diagnosis Code Status: Full Code - Medication Management Discharge Medications: electronically signed and located in the Home Medication List. PICC Care - Routine: N/A - Orders Services needed: Physical Therapy, Occupational Therapy Additional Instructions: The cause of some of your symptoms was likely related to dehydration. I strongly recommend that you avoid taking oxycodone if able. Additionally, oxybutynin and robitussin may make you more somnolent, and it may be reasonable to try and not use these medications as well. - Follow Up Care Current Providers and Referrals: NONE *PRIMARY CARE P,. [Primary Care Provider] -
--- NOTE | 2019-01-30 12:55 | ASMTLACE ---
LACE Length of stay for Answers: Less than 1 day current admission Comorbidities - select Answers: Dementia all that apply Other Notes: Parkinson's, recurrent UTIs # of Emergency department Answers: 1-2 visits in the last 6 months Score: 5 Date Signed: 01/30/2019 12:54 PM Electronically Signed By:Florence Chiang RN
--- NOTE | 2019-01-30 12:58 | ASMTDCNOTE ---
Case Management Discharge Discharge Order Complete? Answers: Yes Patient to Obtain Answers: Other Notes: [facility] Medications Transportation Arranged Answers: Family/Friends Discharge Comments Notes: Patient medically cleared for discharge to SNF. He will transfer via [facility] service providers. CM available should other needs arise. Date Signed: 01/30/2019 12:57 PM Electronically Signed By:Florence Chiang RN
--- NOTE | 2019-02-01 16:53 | ASDISCHSUM ---
Discharge Information Plan Status:SNF Medically Cleared to Leave:01/29/2019 Discharge Date:01/30/2019 03:22 PM D/C Disposition:[facility] Facility ADT D/C Disposition:Rehab Sales Relationship Manager Care Projected Discharge Date:01/30/2019 11:00 AM Transportation at D/C: Discharge Delay Reason: Follow-Up Date:01/30/2019 11:00 AM Discharge Slot: Final Diagnosis: Placement Information Referral Type:*Alf/SNF Referral ID:[id number] Provider Name:[facility] Address 1:[address] Address 2: [facility]:[place] Selection Factors: State:[place] Patient Contact Information Contact Name:LIBRADO Relationship: Address:[address] [place] [address] Work Phone: [facility]:[place] Alternate Phone: [facility]/Zip Code:[place] [address] Email: Financial Information Financial Class:Medicare Primary Plan Desc:MEDICARE OUTPATIENT Primary Plan Number:[id number] Secondary Plan Desc: Secondary Plan Number: Assessment Information LACE LACE Length of stay for Answers: Less than 1 day current admission Comorbidities - select Answers: Dementia all that apply Other Notes: Parkinson's, recurrent UTIs # of Emergency department Answers: 1-2 visits in the last 6 months Score: 5 Date Signed: 01/30/2019 12:54 PM Electronically Signed By:Florence Chiang RN [facility] CM Progress Note CM Note CM Note Notes: Pt was admitted with UTI. He has a hx of recurrent UTIs, Parkinson's Disease, Lewy Body dementia. He is a resident at [facility]. His Gypsy Zamarripa [phone] is his MDPOA. CM will follow for any d/c needs. D/C plan: anticipate d/c back to [facility], either for rehab or LTC Date Signed: 01/29/2019 03:08 PM Electronically Signed By:CANDY Shin Case Management Discharge Plan Note Case Management Discharge Discharge Order Complete? Answers: Yes Patient to Obtain Answers: Other Notes: [facility] Medications Transportation Arranged Answers: Family/Friends Discharge Comments Notes: Patient medically cleared for discharge to SNF. He will transfer via [facility] service providers. CM available should other needs arise. Date Signed: 01/30/2019 12:57 PM Electronically Signed By:Florence Chiang RN Intervention Information
[2019-02-03] MEDS ORDERED: CHOLECALCIFEROL VIT D3 1,000 UNITS TAB PO SCH
== END 2019-01-30 15:22 ==
LOC: EDUNIT# → F1N 13:17
PROVIDERS: ADMIT Hospitalist; ATTEND Internal Medicine
DX: E86.0 Dehydration (principal); G93.41 Metabolic encephalopathy; N17.9 Acute kidney failure, unspecified; R32 Unspecified urinary incontinence; E46 Unspecified protein-calorie malnutrition; K59.00 Constipation, unspecified; G31.83 Neurocognitive disorder with Lewy bodies; F02.80 Dementia in other diseases classified elsewhere, unspecified severity, without behavioral disturbance, psychotic disturbance, mood disturbance, and anxiety; N31.9 Neuromuscular dysfunction of bladder, unspecified; Z87.440 Personal history of urinary (tract) infections; Z91.81 History of falling
CPT/HCPCS: 74018; 97162; 97166; 97530; G0378; J1650